=== PATIENT | male | born 1970 | race Caucasian/White ===

== ENCOUNTER 2016-08-29 15:24 | Outpatient (CLI) | payer OTHER | END 2016-08-29 15:25 | disposition home or self-care (01) | DX: G47.10 Hypersomnia, unspecified (principal); G47.8 Other sleep disorders; R06.83 Snoring ==

== ENCOUNTER 2016-09-28 21:29 | Outpatient (CLI) | payer OTHER | END 2016-09-28 21:30 | disposition home or self-care (01) | LOC: SC 21:29 | PROVIDERS: ATTEND Internal Medicine Pulmonary Disease | DX: G47.10 Hypersomnia, unspecified (principal); R06.83 Snoring | CPT/HCPCS: 95810 ==

== ENCOUNTER 2016-11-08 09:28 | Outpatient (CLI) | payer OTHER | END 2016-11-08 09:29 | disposition home or self-care (01) | LOC: SC 09:28 | PROVIDERS: ATTEND Nurse Practitioner Family | DX: G47.10 Hypersomnia, unspecified (principal); G47.23 Circadian rhythm sleep disorder, irregular sleep wake type | CPT/HCPCS: 99212; 99214 ==

== ENCOUNTER 2017-05-30 08:00 | Outpatient (CLI) | payer BC, OTHER ==
[2017-05-30 19:12] LABS: H. PYLORIS ANTIGEN STL NEGATIVE (Negative)
== END 2017-05-30 08:01 | disposition home or self-care (01) ==
LOC: LAB.WCP 08:00
PROVIDERS: ATTEND Family Medicine
DX: R10.13 Epigastric pain (principal)
CPT/HCPCS: 87338

== ENCOUNTER 2022-06-26 21:33 | Observation (INO) | payer BC, OTHER ==
[2022-06-26 21:54] LABS: BILIRUBIN,URINE NEGATIVE (NEGATIVE); GLUCOSE, URINE (UA) NEGATIVE (NEGATIVE); KETONES,URINE (UA) NEGATIVE (NEGATIVE); LEUKOCYTE ESTERASE, URINE NEGATIVE (NEGATIVE); NITRITE,URINE NEGATIVE (NEGATIVE); OCCULT BLOOD,URINE NEGATIVE (NEGATIVE); PROTEIN,URINE NEGATIVE (NEGATIVE); UROBILINOGEN,URINE 0.2 (NORMAL) E.U./dL (NORMAL)
[2022-06-26 21:55] LABS: BASOPHILS % (AUTO) 0.2 %; EOSINOPHILS % (AUTO) 0.3 %; HCT - HEMATOCRIT 44.5 % (42.0-52.0); HGB - HEMOGLOBIN 14.7 g/dL (14.0-18.0); LYMPHOCYTES # (AUTO) 1.5 10^3/uL (1.5-3.5); LYMPHOCYTES % (AUTO) 12.5 %; MEAN CORPUSCULAR HEMOGLOBIN 29.6 pg (27.0-31.0); MEAN CORPUSCULAR VOLUME 89.7 fL (80.0-94.0); MEAN PLATELET VOLUME 9.8 fL (7.4-11.4); MONOCYTES # (AUTO) 1.1 10^3/uL (0.0-1.0); MONOCYTES % (AUTO) 9.6 %; NEUTROPHILS # (AUTO) 9.1 10^3/uL (1.5-6.6); NEUTROPHILS % (AUTO) 77.1 %; PLT - PLATELET COUNT 241 10^3/uL (130-450); RED BLOOD COUNT 4.96 10^6/uL (4.70-6.10); RED CELL DISTRIBUTION WIDTH 12.6 % (12.0-15.0); WHITE BLOOD COUNT 11.8 x10^3/uL (4.8-10.8)
[2022-06-26 22:00] LABS: CLARITY,URINE CLEAR (CLEAR)
--- OUTSIDE RECORDS SUMMARY | 2022-06-26 22:02 | EXTERNAL MEDICAL SUMMARY RPT | Continuity of Care Document ---
:1970 Author Organization [facility] Address [address] [place] [address] Phone Care Team Providers Name Role Phone Unavailable Unavailable Unavailable Sonido Monahan Unavailable Unavailable Allergies and Intolerances date description facility type (no date) No Known Drug Allergies [facility] (unkn own) Encounters No information. Functional Status No information. Immunizations No information. Medications date description facility 2022-06-05 00:[address] 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[facility] region 2022-04-13 15:10 Pain in [facility] 2022-04-13 15:10 Pain in unspecified [facility] 2022-04-13 15:10 [facility] 2022-04-13 16:08 Pain in [facility] 2022-04-13 16:08 Pain in unspecified [facility] 2022-04-13 16:08 [facility] 2022-04-13 16:18 Pain in [facility] 2022-04-13 16:18 Pain in unspecified [facility] 2022-04-13 16:18 [facility] 2022-04-14 14:18 Pain in [facility] 2022-04-14 14:18 Pain in unspecified [facility] 2022-04-14 14:18 [facility] 2022-04-19 12:40 Pain in [facility] 2022-04-19 12:40 [facility] 2022-05-08 11:14 Encounter for preprocedural [facility] examination 2022-05-08 11:14 Contact with and (suspected) exposure [place] [id number] 2022-05-09 02:03 Encounter for preprocedural [facility] examination 2022-05-09 02:03 Contact with and (suspected) exposure [place] [id number] 2022-05-09 12:45 Family history of malignant neoplasm of [facility] digestive organs 2022-05-09 12:45 Family history of colonic polyps [facility] 2022-05-09 12:48 Family history of malignant neoplasm of [facility] organs 2022-05-09 12:48 Family history of colonic polyps [facility] 2022-05-09 13:02 Family history of malignant neoplasm of [facility] 2022-05-09 13:02 Family history of colonic polyps [facility] 2022-05-09 13:07 Family history of malignant neoplasm of [facility] 2022-05-09 13:07 Family history of colonic polyps [facility] 2022-05-09 13:43 Family history of malignant neoplasm of [facility] 2022-05-09 13:43 Family history of colonic polyps [facility] 2022-05-09 14:25 Family history of malignant neoplasm of [facility] 2022-05-09 14:25 Family history of colonic polyps [facility] 2022-05-09 14:44 Family history of malignant neoplasm of [facility] 2022-05-09 14:44 Family history of colonic polyps [facility] Procedures date description facility 2022-04-13 00:00 XR shoulder right, 2+ views [facility] 2022-04-13 00:00 XR cervical spine, 4 views [facility] 2022-05-09 00:[address] [facility] 2022-05-09 00:00 Esophagogastroduodenoscopy [facility] Results/Labs test date author facility value unit interpret ation Result panel 1 (unknown) (no date) (unknown) [place] (no value[facility] ([facility] unknown) Result panel 2 (unknown) (no date) (unknown) [place] (no value) ([facility] unknown) Result panel 3 (unknown) (no (unknown) (unknown) (no value) (units (unk nown) date) unknown) (unknown) (no (unknown) (unknown) 04/13/22 (units (unkno wn) date) unknown) (unknown) (no (unknown) (unknown) [address] [place] [address] (units (unknown) date) unknown) (unknown) (no (unknown) (unknown) [facility] (units (unkn own) date) Number: unknown) [id number] (unknown) (no (unknown) (unknown) [facility]ion (units (unkn own) date) Number: unknown) [id number] (unknown) (no (unknown) (unknown) Age/Sex: 52 / M (units (unknown) date) Date of Service: unknown) (unknown) (no (unknown) (unknown) [place], [place] (units ( unknown) date) [id number] unknown) (unknown) (no (unknown) (unknown) Approved by: (units (u nknown) date) Romy Jacobo M.D. unknown) on 04/13/2022 at 16:37 (unknown) (no (unknown) (unknown) Approved by: (units (u nknown) date) Romy Jacobo M.D. unknown) on 04/13/2022 at 16:39 (unknown) (no (unknown) (unknown) Bones: No (units (unkn own) date) fractures or unknown) dislocations to the C7 level. There is trace (unknown) (no (unknown) (unknown) Bones: No (units (unkn own) date) fractures or unknown) dislocations. No suspicious bony lesions. Visualized (unknown) (no (unknown) (unknown) C3-4 and C4-5. (units (unknown) date) Intervertebral unknown) disc space narrowing and osteophytosis is (unknown) (no (unknown) (unknown) COMPARISON: (units (un known) date) None. unknown) (unknown) (no (unknown) (unknown) : 1970 (units (unknown) date) Acct:[id number] unknown) (unknown) (no (unknown) (unknown) Dictated by: (units (u nknown) date) Romy Jacobo M.D. unknown) on 04/13/2022 at 16:37 (unknown) (no (unknown) (unknown) Dictated by: (units (u nknown) date) Romy Jacobo M.D. unknown) on 04/13/2022 at 16:38 (unknown) (no (unknown) (unknown) FINDINGS: (units (unkn own) date) unknown) (unknown) (no (unknown) (unknown) IMPRESSION: (units (un known) date) Degenerative unknown) change and foraminal stenosis as above. (unknown) (no (unknown) (unknown) IMPRESSION: No (units (unknown) date) acute unknown) radiographic findings. (unknown) (no (unknown) (unknown) INDICATIONS: (units (u nknown) date) NECK PAIN unknown) (unknown) (no (unknown) (unknown) INDICATIONS: (units (u nknown) date) RIGHT SHOULDER unknown) PAIN (unknown) (no (unknown) (unknown) [facility] (units (unknown) date) unknown) (unknown) (no (unknown) (unknown) Loc: RAD (units (unkno wn) date) unknown) (unknown) (no (unknown) (unknown) [id number] (units (unk nown) date) unknown) (unknown) (no (unknown) (unknown) Moderate to (units (un known) date) severe foraminal unknown) stenosis is present on the right at C4-5 and (unknown) (no (unknown) (unknown) Ordering (units (unkno wn) date) Provider: unknown) Sonido Monahan D.O. (unknown) (no (unknown) (unknown) PROCEDURE: XR (units ( unknown) date) CERVICAL SPINE 4V unknown) OR 5V (unknown) (no (unknown) (unknown) PROCEDURE: XR (units ( unknown) date) SHOULDER RT MIN unknown) 2V (unknown) (no (unknown) (unknown) Patient: (units (unkno wn) date) Michael Paulino unknown) MR#: (unknown) (no (unknown) (unknown) Procedure: XR (units ( unknown) date) cervical spine 4V unknown) or 5V (unknown) (no (unknown) (unknown) Procedure: XR (units ( unknown) date) shoulder RT min unknown) 2V (unknown) (no (unknown) (unknown) Signed (units (unkno wn) date) unknown) (unknown) (no (unknown) (unknown) Soft tissues: No (units (unknown) date) prevertebral soft unknown) tissue swelling. (unknown) (no (unknown) (unknown) Soft tissues: No (units (unknown) date) suspicious soft unknown) tissue calcifications. (unknown) (no (unknown) (unknown) TECHNIQUE: 3 (units (u nknown) date) views of the unknown) shoulder were acquired. (unknown) (no (unknown) (unknown) TECHNIQUE: 5 (units (u nknown) date) views of the unknown) cervical spine acquired. (unknown) (no (unknown) (unknown) XRay Report (units (un known) date) unknown) (unknown) (no (unknown) (unknown) and C5-6. (units (unkn own) date) Moderate stenosis unknown) is present on the left at C6-7. (unknown) (no (unknown) (unknown) appear intact. (units (unknown) date) unknown) (unknown) (no (unknown) (unknown) at C4-5 (units (unkno wn) date) unknown) (unknown) (no (unknown) (unknown) moderate (units (unkno wn) date) unknown) (unknown) (no (unknown) (unknown) present within (units (unknown) date) unknown) (unknown) (no (unknown) (unknown) retrolisthesis (units (unknown) date) at unknown) (unknown) (no (unknown) (unknown) ribs (units (unkno wn) date) unknown) (unknown) (no (unknown) (unknown) stenosis is (units (un known) date) present at C5-6. unknown) Severe foraminal stenosis is present on the left (unknown) (no (unknown) (unknown) the mid cervical (units (unknown) date) spine. unknown) Result panel 4 (unknown) (no (unknown) (unknown) (no value) (units (unk nown) date) unknown) (unknown) (no (unknown) (unknown) [id number] (units (unkn own) date) unknown) (unknown) (no (unknown) (unknown) 04/13/22 (units (unkno wn) date) unknown) (unknown) (no (unknown) (unknown) Accompanied by: (units (unknown) date) Self / Same As unknown) Patient (unknown) (no (unknown) (unknown) Age/Sex: 52 / M (units (unknown) date) Date of Service: unknown) (unknown) (no (unknown) (unknown) Allergies (units (unkn own) date) unknown) (unknown) (no (unknown) (unknown) [place], [place] (units ( unknown) date) [id number] unknown) (unknown) (no (unknown) (unknown) Assessment + (units (u nknown) date) Plan unknown) (unknown) (no (unknown) (unknown) Attending Dr: (units ( unknown) date) Sonido Monahan unknown) D.O. 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 unknown) (unknown) (no (unknown) (unknown) Documented By: (units (unknown) date) Sonido Monahan unknown) D.O. 04/13/22 1606 (unknown) (no (unknown) (unknown) Draft (units (unkno wn) date) unknown) (unknown) (no (unknown) (unknown) Facet (units (unkno wn) date) arthropathy, unknown) lumbar (unknown) (no (unknown) (unknown) Family History (units (unknown) date) (Reviewed unknown) 10/18/20 @ 16:57 by Sonido Monahan DO) (unknown) (no (unknown) (unknown) Father Colon (units (u nknown) date) cancer unknown) (unknown) (no (unknown) (unknown) Grandmother (units (un known) date) Stroke unknown) (unknown) (no (unknown) (unknown) History of (units (unk nown) date) arthroscopy of unknown) knee (unknown) (no (unknown) (unknown) Intake Clinical (units (unknown) date) Staff unknown) (unknown) (no (unknown) (unknown) Intake performed (units (unknown) date) by: Ade Infante unknown) (unknown) (no (unknown) (unknown) Intake (units (unkno wn) date) unknown) (unknown) (no (unknown) (unknown) Lateral (units (unkno wn) date) epicondylitis unknown) (unknown) (no (unknown) (unknown) Loc: PAIN (units (unkn own) date) unknown) (unknown) (no (unknown) (unknown) Medical History (units (unknown) date) (Updated 10/18/20 unknown) @ 17:01 by Sonido Monahan DO) (unknown) (no (unknown) (unknown) Medications (units (un known) date) unknown) (unknown) (no (unknown) (unknown) Mother Polyp, (units ( unknown) date) stomach unknown) (unknown) (no (unknown) (unknown) No Known Drug (units ( unknown) date) Allergies Allergy unknown) (Verified 04/13/22 16:07) (unknown) (no (unknown) (unknown) Orders (units (unkno wn) date) unknown) (unknown) (no (unknown) (unknown) Orders: (units (unkno wn) date) unknown) (unknown) (no (unknown) (unknown) PFSH (units (unkno wn) date) unknown) (unknown) (no (unknown) (unknown) Pain Visit (units (unk nown) date) unknown) (unknown) (no (unknown) (unknown) Patient: (units (unkno wn) date) Michael Paulino unknown) MR#: M (unknown) (no (unknown) (unknown) Reason For Visit (units (unknown) date) unknown) (unknown) (no (unknown) (unknown) Signed By: (units (unk nown) date) unknown) (unknown) (no (unknown) (unknown) Smoking Status: (units (unknown) date) Never smoker unknown) (unknown) (no (unknown) (unknown) Surgical History (units (unknown) date) (Reviewed unknown) 10/18/20 @ 16:57 by Sonido Monahan DO) (unknown) (no (unknown) (unknown) [facility] unknown) (unknown) (no (unknown) (unknown) This note may (units ( unknown) date) have been all or unknown) partially generated using voice recognition (unknown) (no (unknown) (unknown) Tobacco + (units (unkn own) date) Substance Use unknown) (unknown) (no (unknown) (unknown) Tobacco Status (units (unknown) date) unknown) (unknown) (no (unknown) (unknown) Visit Reasons: R (units (unknown) date) SHOULDER/ L ELBOW unknown) PAIN, RIGHT SHOULDER/L ELBOW (unknown) (no (unknown) (unknown) XR cervical (units (un known) date) spine 4V or 5V unknown) Today M25.519 - Pain in unspecified shoulder, M54.2 (unknown) (no (unknown) (unknown) XR shoulder RT (units (unknown) date) min 2V Today unknown) M25.511 - Pain in right shoulder (unknown) (no (unknown) (unknown) acetaminophen (units ( unknown) date) 325 mg tablet unknown) (Tylenol) 650 mg PO Q6H PRN 03/10/20 [History (unknown) (no (unknown) (unknown) atorvastatin 10 (units (unknown) date) mg tablet 10 mg unknown) PO BEDTIME 04/13/22 [History Confirmed 04/13/22] (unknown) (no (unknown) (unknown) have occurred. (units (unknown) date) If there are any unknown) questions, please contact the Medical Records (unknown) (no (unknown) (unknown) may occur. (units (unk nown) date) Occasional unknown) wrong-word or 'sound-alike' substitutions may have (unknown) (no (unknown) (unknown) occurred due to (units (unknown) date) the inherent unknown) limitations of voice recognition software. Please (unknown) (no (unknown) (unknown) read the note (units ( unknown) date) carefully and unknown) recognize, using context, where these substitutions (unknown) (no (unknown) (unknown) software. (units (unkn own) date) Although every unknown) effort is made to edit content, digital advertising analyst errors Result panel 5 (unknown) (no (unknown) (unknown) (no value) (units (unk nown) date) unknown) (unknown) (no (unknown) (unknown) [id number] (units (unkn own) date) unknown) (unknown) (no (unknown) (unknown) 04/13/22 (units (unkno wn) date) unknown) (unknown) (no (unknown) (unknown) Accompanied by: (units (unknown) date) Self / Same As unknown) Patient (unknown) (no (unknown) (unknown) Age/Sex: 52 / M (units (unknown) date) Date of Service: unknown) (unknown) (no (unknown) (unknown) Allergies (units (unkn own) date) unknown) (unknown) (no (unknown) (unknown) [place], [place] (units ( unknown) date) [id number] unknown) (unknown) (no (unknown) (unknown) Assessment + (units (u nknown) date) Plan unknown) (unknown) (no (unknown) (unknown) Attending Dr: (units ( unknown) date) Sonido Monahan unknown) D.O. 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 unknown) (unknown) (no (unknown) (unknown) Documented By: (units (unknown) date) Sonido Monahan unknown) D.O. 04/13/22 1606 (unknown) (no (unknown) (unknown) Draft (units (unkno wn) date) unknown) (unknown) (no (unknown) (unknown) Facet (units (unkno wn) date) arthropathy, unknown) lumbar (unknown) (no (unknown) (unknown) Family History (units (unknown) date) (Reviewed unknown) 10/18/20 @ 16:57 by Sonido Monahan DO) (unknown) (no (unknown) (unknown) Father Colon (units (u nknown) date) cancer unknown) (unknown) (no (unknown) (unknown) Grandmother (units (un known) date) Stroke unknown) (unknown) (no (unknown) (unknown) HERE FOR RIGHT (units (unknown) date) SHOULDER PAIN unknown) (unknown) (no (unknown) (unknown) History of (units (unk nown) date) arthroscopy of unknown) knee (unknown) (no (unknown) (unknown) Intake Clinical (units (unknown) date) Staff unknown) (unknown) (no (unknown) (unknown) Intake Note: (units (u nknown) date) unknown) (unknown) (no (unknown) (unknown) Intake performed (units (unknown) date) by: Ade Infante unknown) (unknown) (no (unknown) (unknown) Intake (units (unkno wn) date) unknown) (unknown) (no (unknown) (unknown) Lateral (units (unkno wn) date) epicondylitis unknown) (unknown) (no (unknown) (unknown) Loc: PAIN (units (unkn own) date) unknown) (unknown) (no (unknown) (unknown) Medical History (units (unknown) date) (Updated 10/18/20 unknown) @ 17:01 by Sonido Monahan DO) (unknown) (no (unknown) (unknown) Medications (units (un known) date) unknown) (unknown) (no (unknown) (unknown) Mother Polyp, (units ( unknown) date) stomach unknown) (unknown) (no (unknown) (unknown) No Known Drug (units ( unknown) date) Allergies Allergy unknown) (Verified 04/13/22 16:07) (unknown) (no (unknown) (unknown) Orders (units (unkno wn) date) unknown) (unknown) (no (unknown) (unknown) Orders: (units (unkno wn) date) unknown) (unknown) (no (unknown) (unknown) PFSH (units (unkno wn) date) unknown) (unknown) (no (unknown) (unknown) Pain Visit (units (unk nown) date) unknown) (unknown) (no (unknown) (unknown) Patient: (units (unkno wn) date) Michael Paulino unknown) MR#: M (unknown) (no (unknown) (unknown) Reason For Visit (units (unknown) date) unknown) (unknown) (no (unknown) (unknown) Signed By: (units (unk nown) date) unknown) (unknown) (no (unknown) (unknown) Smoking Status: (units (unknown) date) Never smoker unknown) (unknown) (no (unknown) (unknown) Surgical History (units (unknown) date) (Reviewed unknown) 10/18/20 @ 16:57 by Sonido Monahan DO) (unknown) (no (unknown) (unknown) [facility] ([facility] unknown) (unknown) (no (unknown) (unknown) This note may (units ( unknown) date) have been all or unknown) partially generated using voice recognition (unknown) (no (unknown) (unknown) Tobacco + (units (unkn own) date) Substance Use unknown) (unknown) (no (unknown) (unknown) Tobacco Status (units (unknown) date) unknown) (unknown) (no (unknown) (unknown) Visit Reasons: R (units (unknown) date) SHOULDER/ L ELBOW unknown) PAIN, RIGHT SHOULDER/L ELBOW (unknown) (no (unknown) (unknown) XR cervical (units (un known) date) spine 4V or 5V unknown) Today M25.519 - Pain in unspecified shoulder, M54.2 (unknown) (no (unknown) (unknown) XR shoulder RT (units (unknown) date) min 2V Today unknown) M25.511 - Pain in right shoulder (unknown) (no (unknown) (unknown) acetaminophen (units ( unknown) date) 325 mg tablet unknown) (Tylenol) 650 mg PO Q6H PRN 03/10/20 [History (unknown) (no (unknown) (unknown) atorvastatin 10 (units (unknown) date) mg tablet 10 mg unknown) PO BEDTIME 04/13/22 [History Confirmed 04/13/22] (unknown) (no (unknown) (unknown) have occurred. (units (unknown) date) If there are any unknown) questions, please contact the Medical Records (unknown) (no (unknown) (unknown) may occur. (units (unk nown) date) Occasional unknown) wrong-word or 'sound-alike' substitutions may have (unknown) (no (unknown) (unknown) occurred due to (units (unknown) date) the inherent unknown) limitations of voice recognition software. Please (unknown) (no (unknown) (unknown) read the note (units ( unknown) date) carefully and unknown) recognize, using context, where these substitutions (unknown) (no (unknown) (unknown) software. (units (unkn own) date) Although every unknown) effort is made to edit content, digital advertising analyst errors Result panel 6 (unknown) (no (unknown) (unknown) (no value) (units (unk nown) date) unknown) (unknown) (no (unknown) (unknown) [id number] (units (unkn own) date) unknown) (unknown) (no (unknown) (unknown) 10): 6 (units (unkno wn) date) unknown) (unknown) (no (unknown) (unknown) 04/13/22 (units (unkno wn) date) unknown) (unknown) (no (unknown) (unknown) 16:26 (units (unkno wn) date) unknown) (unknown) (no (unknown) (unknown) Accompanied by: (units (unknown) date) Self / Same As unknown) Patient (unknown) (no (unknown) (unknown) Age/Sex: 52 / M (units (unknown) date) Date of Service: unknown) (unknown) (no (unknown) (unknown) Allergies (units (unkn own) date) unknown) (unknown) (no (unknown) (unknown) [place], [place] (units ( unknown) date) [id number] unknown) (unknown) (no (unknown) (unknown) Assessment + (units (u nknown) date) Plan unknown) (unknown) (no (unknown) (unknown) Attending Dr: (units ( unknown) date) Sonido Monahan unknown) D.O. 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 unknown) (unknown) (no (unknown) (unknown) Documented By: (units (unknown) date) Sonido Monahan unknown) D.O. 04/13/22 1606 (unknown) (no (unknown) (unknown) Draft (units (unkno wn) date) unknown) (unknown) (no (unknown) (unknown) Facet (units (unkno wn) date) arthropathy, unknown) lumbar (unknown) (no (unknown) (unknown) Family History (units (unknown) date) (Reviewed unknown) 10/18/20 @ 16:57 by Sonido Monahan DO) (unknown) (no (unknown) (unknown) Father Colon (units (u nknown) date) cancer unknown) (unknown) (no (unknown) (unknown) Grandmother (units (un known) date) Stroke unknown) (unknown) (no (unknown) (unknown) HERE FOR RIGHT (units (unknown) date) SHOULDER PAIN unknown) (unknown) (no (unknown) (unknown) Height 5 ft 11 (units (unknown) date) in unknown) (unknown) (no (unknown) (unknown) History of (units (unk nown) date) arthroscopy of unknown) knee (unknown) (no (unknown) (unknown) Intake Clinical (units (unknown) date) Staff unknown) (unknown) (no (unknown) (unknown) Intake Note: (units (u nknown) date) unknown) (unknown) (no (unknown) (unknown) Intake performed (units (unknown) date) by: Ade Infante unknown) (unknown) (no (unknown) (unknown) Intake (units (unkno wn) date) unknown) (unknown) (no (unknown) (unknown) Is patient in (units ( unknown) date) pain?: Yes (HERE unknown) FOR RIGHT SHOULDER AND LEFT ELBOW) Pain scale (1 (unknown) (no (unknown) (unknown) Lateral (units (unkno wn) date) epicondylitis unknown) (unknown) (no (unknown) (unknown) Loc: PAIN (units (unkn own) date) unknown) (unknown) (no (unknown) (unknown) Medical History (units (unknown) date) (Updated 10/18/20 unknown) @ 17:01 by Sonido Monahan DO) (unknown) (no (unknown) (unknown) Medications (units (un known) date) unknown) (unknown) (no (unknown) (unknown) Mother Polyp, (units ( unknown) date) stomach unknown) (unknown) (no (unknown) (unknown) No Known Drug (units ( unknown) date) Allergies Allergy unknown) (Verified 04/13/22 16:07) (unknown) (no (unknown) (unknown) Orders (units (unkno wn) date) unknown) (unknown) (no (unknown) (unknown) Orders: (units (unkno wn) date) unknown) (unknown) (no (unknown) (unknown) Oxygen Delivery (units (unknown) date) Method room air unknown) (unknown) (no (unknown) (unknown) PFSH (units (unkno wn) date) unknown) (unknown) (no (unknown) (unknown) Pain Scale (units (unk nown) date) unknown) (unknown) (no (unknown) (unknown) Pain Visit (units (unk nown) date) unknown) (unknown) (no (unknown) (unknown) Patient: (units (unkno wn) date) Michael Paulino unknown) MR#: M (unknown) (no (unknown) (unknown) Position Sitting (units (unknown) date) unknown) (unknown) (no (unknown) (unknown) Pulse 72 (units (unkno wn) date) unknown) (unknown) (no (unknown) (unknown) Pulse Oximetry (units (unknown) date) (%) 100 unknown) (unknown) (no (unknown) (unknown) Pulse Source (units (u nknown) date) Monitor unknown) (unknown) (no (unknown) (unknown) Reason For Visit (units (unknown) date) unknown) (unknown) (no (unknown) (unknown) Signed By: (units (unk nown) date) unknown) (unknown) (no (unknown) (unknown) Smoking Status: (units (unknown) date) Never smoker unknown) (unknown) (no (unknown) (unknown) Surgical History (units (unknown) date) (Reviewed unknown) 10/18/20 @ 16:57 by Sonido Monahan DO) (unknown) (no (unknown) (unknown) Temp 98.2 F (units (un known) date) unknown) (unknown) (no (unknown) (unknown) Temp Source (units (un known) date) Temporal Artery unknown) Scan (unknown) (no (unknown) (unknown) [facility] ([facility] unknown) (unknown) (no (unknown) (unknown) This note may (units ( unknown) date) have been all or unknown) partially generated using voice recognition (unknown) (no (unknown) (unknown) Tobacco + (units (unkn own) date) Substance Use unknown) (unknown) (no (unknown) (unknown) Tobacco Status (units (unknown) date) unknown) (unknown) (no (unknown) (unknown) Visit Reasons: R (units (unknown) date) SHOULDER/ L ELBOW unknown) PAIN, RIGHT SHOULDER/L ELBOW (unknown) (no (unknown) (unknown) Vitals (units (unkno wn) date) unknown) (unknown) (no (unknown) (unknown) Weight 189 lb (units ( unknown) date) unknown) (unknown) (no (unknown) (unknown) XR cervical (units (un known) date) spine 4V or 5V unknown) Today M25.519 - Pain in unspecified shoulder, M54.2 (unknown) (no (unknown) (unknown) XR shoulder RT (units (unknown) date) min 2V Today unknown) M25.511 - Pain in right shoulder (unknown) (no (unknown) (unknown) acetaminophen (units ( unknown) date) 325 mg tablet unknown) (Tylenol) 650 mg PO Q6H PRN 03/10/20 [History (unknown) (no (unknown) (unknown) atorvastatin 10 (units (unknown) date) mg tablet 10 mg unknown) PO BEDTIME 04/13/22 [History Confirmed 04/13/22] (unknown) (no (unknown) (unknown) have occurred. (units (unknown) date) If there are any unknown) questions, please contact the Medical Records (unknown) (no (unknown) (unknown) may occur. (units (unk nown) date) Occasional unknown) wrong-word or 'sound-alike' substitutions may have (unknown) (no (unknown) (unknown) occurred due to (units (unknown) date) the inherent unknown) limitations of voice recognition software. Please (unknown) (no (unknown) (unknown) read the note (units ( unknown) date) carefully and unknown) recognize, using context, where these substitutions (unknown) (no (unknown) (unknown) software. (units (unkn own) date) Although every unknown) effort is made to edit content, digital advertising analyst errors Result panel 7 (unknown) (no (unknown) (unknown) (no value) (units (unk nown) date) unknown) (unknown) (no (unknown) (unknown) [id number] (units (unkn own) date) unknown) (unknown) (no (unknown) (unknown) 1. Diffuse disc (units (unknown) date) bulge and unknown) superimposed disc herniation with bilateral facet (unknown) (no (unknown) (unknown) 10): 6 (units (unkno wn) date) unknown) (unknown) (no (unknown) (unknown) 04/13/22 (units (unkno wn) date) unknown) (unknown) (no (unknown) (unknown) 16 study. (units (unkn own) date) unknown) (unknown) (no (unknown) (unknown) 16:26 (units (unkno wn) date) unknown) (unknown) (no (unknown) (unknown) 2. Mild (units (unkno wn) date) degenerative disc unknown) bulge at L1-2 through L3-4 levels causing mild central (unknown) (no (unknown) (unknown) 3. Stable minimal (units (unknown) date) retrolisthesis of unknown) L4 on L5. No compression fracture. No marrow (unknown) (no (unknown) (unknown) 11/15/2016, (units (unk nown) date) unknown) (unknown) (no (unknown) (unknown) 9:14. (units (unkno wn) date) unknown) (unknown) (no (unknown) (unknown) ? (units (unkno wn) date) unknown) (unknown) (no (unknown) (unknown) Accompanied by: (units (unknown) date) Self / Same As unknown) Patient (unknown) (no (unknown) (unknown) Age/Sex: 52 / M (units (unknown) date) Date of Service: unknown) (unknown) (no (unknown) (unknown) Alignment and (units ( unknown) date) Curvature: There unknown) is straightening of normal lumbar lordosis. (unknown) (no (unknown) (unknown) Allergies (units (unkn own) date) unknown) (unknown) (no (unknown) (unknown) [place], [place] (units ( unknown) date) [id number] unknown) (unknown) (no (unknown) (unknown) Approved by: (units (u nknown) date) Daniel Cooley M.D. unknown) on 10/18/2020 at 16:28 (unknown) (no (unknown) (unknown) Approved by: (units (u nknown) date) Daniel Cooley M.D. unknown) on 10/18/2020 at 16:30 05/02/2018 lumbar spine (unknown) (no (unknown) (unknown) Approved by: Edgar (units (unknown) date) Doc Chen on unknown) 05/03/2018 at 8:55 (unknown) (no (unknown) (unknown) Approved by: Romy (units (unknown) date) Doc Jacobo on unknown) 04/13/2022 at 16:37 (unknown) (no (unknown) (unknown) Approved by: Romy (units (unknown) date) Doc Jacobo on unknown) 04/13/2022 at 16:39? (unknown) (no (unknown) (unknown) Assessment + Plan (units (unknown) date) unknown) (unknown) (no (unknown) (unknown) Attending Dr: (units ( unknown) date) Sonido Monahan D.O. unknown) (unknown) (no (unknown) (unknown) BMI 26.3 (units (unkno wn) date) unknown) (unknown) (no (unknown) (unknown) BP 110/62 (units (unkn own) date) unknown) (unknown) (no (unknown) (unknown) Blood Pressure (units (unknown) date) Location Rt unknown) brachial (unknown) (no (unknown) (unknown) Bones: No acute (units (unknown) date) fracture unknown) identified. There is dextrocurvature of the (unknown) (no (unknown) (unknown) Bones: No acute (units (unknown) date) fracture. unknown) Multilevel degenerative endplate sclerosis and (unknown) (no (unknown) (unknown) Bones: No (units (unkno wn) date) fractures or unknown) dislocations. No suspicious bony lesions. Visualized ribs (unknown) (no (unknown) (unknown) Bones:? No (units (unk nown) date) fractures or unknown) dislocations to the C7 level.? There is trace (unknown) (no (unknown) (unknown) Bulging disc (units (u nknown) date) likely contacting unknown) right L5 and S1 nerve roots. (unknown) (no (unknown) (unknown) C3-4 and C4-5.? (units (unknown) date) Intervertebral unknown) disc space narrowing and osteophytosis is present (unknown) (no (unknown) (unknown) COMPARISON: None. (units (unknown) date) unknown) (unknown) (no (unknown) (unknown) COMPARISON: (units (un known) date) [facility] unknown) [facility] [place], [place], SPINE LUMB MIN 4VW, (unknown) (no (unknown) (unknown) COMPARISON:? (units (u nknown) date) None. 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 unknown) (unknown) (no (unknown) (unknown) Dextrocurvature (units (unknown) date) unknown) (unknown) (no (unknown) (unknown) Dictated by: (units (u nknown) date) Daniel Cooley M.D. unknown) on 10/18/2020 at 16:27 (unknown) (no (unknown) (unknown) Dictated by: (units (u nknown) date) Daniel Cooley M.D. unknown) on 10/18/2020 at 16:28 (unknown) (no (unknown) (unknown) Dictated by: Edgar (units (unknown) date) Doc Chen on unknown) 05/03/2018 at 8:20 (unknown) (no (unknown) (unknown) Dictated by: Romy (units (unknown) date) Doc Jacobo on unknown) 04/13/2022 at 16:37 (unknown) (no (unknown) (unknown) Dictated by: Romy (units (unknown) date) Doc Jacobo on unknown) 04/13/2022 at 16:38 ? ? 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 unknown) Moderate narrowing of the L4-L5 disc space. Mild (unknown) (no (unknown) (unknown) Diffuse facet (units ( unknown) date) unknown) (unknown) (no (unknown) (unknown) Diffuse lumbar (units (unknown) date) spondylosis and unknown) moderate L4-L5 disc degeneration, with slight (unknown) (no (unknown) (unknown) Diffuse (units (unkno wn) date) spondylitic unknown) changes. (unknown) (no (unknown) (unknown) Documented By: (units (unknown) date) Sonido Monahan D.O. unknown) 04/13/22 1606 (unknown) (no (unknown) (unknown) Draft (units (unkno wn) date) unknown) (unknown) (no (unknown) (unknown) FINDINGS: (units (unkn own) date) unknown) (unknown) (no (unknown) (unknown) FINDINGS:? (units (unk nown) date) unknown) (unknown) (no (unknown) (unknown) Facet (units (unkno wn) date) arthropathy, unknown) lumbar (unknown) (no (unknown) (unknown) Family History (units (unknown) date) (Reviewed 10/18/20 unknown) @ 16:57 by Sonido Monahan DO) (unknown) (no (unknown) (unknown) Father Colon (units (u nknown) date) cancer unknown) (unknown) (no (unknown) (unknown) Grandmother (units (un known) date) Stroke unknown) (unknown) (no (unknown) (unknown) HERE FOR RIGHT (units (unknown) date) SHOULDER PAIN unknown) (unknown) (no (unknown) (unknown) Height 5 ft 11 in (units (unknown) date) unknown) (unknown) (no (unknown) (unknown) History of (units (unk nown) date) arthroscopy of unknown) knee (unknown) (no (unknown) (unknown) IMPRESSION: No (units (unknown) date) acute radiographic unknown) findings. (unknown) (no (unknown) (unknown) IMPRESSION: (units (un known) date) unknown) (unknown) (no (unknown) (unknown) IMPRESSION:? (units (u nknown) date) Degenerative unknown) change and foraminal stenosis as above. (unknown) (no (unknown) (unknown) INDICATIONS: PAIN (units (unknown) date) unknown) (unknown) (no (unknown) (unknown) INDICATIONS: (units (u nknown) date) RIGHT SHOULDER unknown) PAIN (unknown) (no (unknown) (unknown) INDICATIONS:? (units ( unknown) date) NECK PAIN unknown) (unknown) (no (unknown) (unknown) Imaging was (units (unk nown) date) personally unknown) reviewed and findings correlate with radiology reports as (unknown) (no (unknown) (unknown) Intake Clinical (units (unknown) date) Staff unknown) (unknown) (no (unknown) (unknown) Intake Note: (units (u nknown) date) unknown) (unknown) (no (unknown) (unknown) Intake performed (units (unknown) date) by: Ade Infante unknown) (unknown) (no (unknown) (unknown) Intake (units (unkno wn) date) unknown) (unknown) (no (unknown) (unknown) Is patient in (units ( unknown) date) pain?: Yes (HERE unknown) FOR RIGHT SHOULDER AND LEFT ELBOW) Pain scale (1 (unknown) (no (unknown) (unknown) L4-5 and L5-S1 (units (unknown) date) levels causing unknown) moderate central canal stenosis and moderate to (unknown) (no (unknown) (unknown) L4-L5: Again (units (u nknown) date) noted is diffuse unknown) disc bulge and superimposed broad-based central (unknown) (no (unknown) (unknown) L4. (units (unkno wn) date) unknown) (unknown) (no (unknown) (unknown) L5-S1: Diffuse (units ( unknown) date) disc bulge and unknown) superimposed right lateral disc protrusion is seen (unknown) (no (unknown) (unknown) Lateral (units (unkno wn) date) epicondylitis unknown) (unknown) (no (unknown) (unknown) Loc: PAIN (units (unkn own) date) unknown) (unknown) (no (unknown) (unknown) Lower cervical (units (unknown) date) spondylosis also unknown) noted. (unknown) (no (unknown) (unknown) MRI results: (units (u nknown) date) unknown) (unknown) (no (unknown) (unknown) Medical History (units (unknown) date) (Updated 10/18/20 unknown) @ 17:01 by Sonido Monahan DO) (unknown) (no (unknown) (unknown) Medications (units (un known) date) unknown) (unknown) (no (unknown) (unknown) Minimal (units (unkno wn) date) unknown) (unknown) (no (unknown) (unknown) Moderate to (units (un known) date) severe central unknown) canal stenosis and bilateral neural foramina (unknown) (no (unknown) (unknown) Moderate to (units (un known) date) severe foraminal unknown) stenosis is present on the right at C4-5 and (unknown) (no (unknown) (unknown) Mother Polyp, (units ( unknown) date) stomach unknown) (unknown) (no (unknown) (unknown) No Known Drug (units ( unknown) date) Allergies Allergy unknown) (Verified 04/13/22 16:07) (unknown) (no (unknown) (unknown) Objective Data (units (unknown) date) unknown) (unknown) (no (unknown) (unknown) Objective Data: (units (unknown) date) unknown) (unknown) (no (unknown) (unknown) Oblique images: (units (unknown) date) No pars defects. unknown) (unknown) (no (unknown) (unknown) Ordering (units (unkno wn) date) Provider: unknown) Sonido Monahan D.O. (unknown) (no (unknown) (unknown) Orders (units (unkno wn) date) unknown) (unknown) (no (unknown) (unknown) Orders: (units (unkno wn) date) unknown) (unknown) (no (unknown) (unknown) Oxygen Delivery (units (unknown) date) Method room air unknown) (unknown) (no (unknown) (unknown) PFSH (units (unkno wn) date) unknown) (unknown) (no (unknown) (unknown) PROCEDURE: XR (units ( unknown) date) LUMBAR SPINE MIN unknown) 4V (unknown) (no (unknown) (unknown) PROCEDURE: XR (units ( unknown) date) SHOULDER RT MIN 2V unknown) (unknown) (no (unknown) (unknown) PROCEDURE: XR (units ( unknown) date) THORACIC SPINE 3V unknown) (unknown) (no (unknown) (unknown) PROCEDURE:? XR (units (unknown) date) CERVICAL SPINE 4V unknown) OR 5V (unknown) (no (unknown) (unknown) Pain Scale (units (unk nown) date) unknown) (unknown) (no (unknown) (unknown) Pain Visit (units (unk nown) date) unknown) (unknown) (no (unknown) (unknown) Patient: (units (unkno wn) date) Michael Paulino G unknown) MR#: M (unknown) (no (unknown) (unknown) Position Sitting (units (unknown) date) unknown) (unknown) (no (unknown) (unknown) Procedure: XR (units ( unknown) date) lumbar spine min unknown) 4V (unknown) (no (unknown) (unknown) Pulse 72 (units (unkno wn) date) unknown) (unknown) (no (unknown) (unknown) Pulse Oximetry (units (unknown) date) (%) 100 unknown) (unknown) (no (unknown) (unknown) Pulse Source (units (u nknown) date) Monitor unknown) (unknown) (no (unknown) (unknown) Reason For Visit (units (unknown) date) unknown) (unknown) (no (unknown) (unknown) Signed By: (units (unk nown) date) unknown) (unknown) (no (unknown) (unknown) Smoking Status: (units (unknown) date) Never smoker unknown) (unknown) (no (unknown) (unknown) Soft tissues: No (units (unknown) date) paravertebral unknown) stripe thickening. (unknown) (no (unknown) (unknown) Soft tissues: No (units (unknown) date) suspicious soft unknown) tissue calcifications. (unknown) (no (unknown) (unknown) Soft tissues: (units ( unknown) date) Overlying bowel unknown) gas pattern is normal. No suspicious soft tissue (unknown) (no (unknown) (unknown) Soft tissues:? No (units (unknown) date) prevertebral soft unknown) tissue swelling.? (unknown) (no (unknown) (unknown) Surgical History (units (unknown) date) (Reviewed 10/18/20 unknown) @ 16:57 by Sonido Monahan DO) (unknown) (no (unknown) (unknown) TECHNIQUE: 3 (units (u nknown) date) views of the unknown) shoulder were acquired. (unknown) (no (unknown) (unknown) TECHNIQUE: 3 (units (u nknown) date) views of the unknown) thoracic spine were acquired. (unknown) (no (unknown) (unknown) TECHNIQUE: 5 (units (u nknown) date) views of the unknown) lumbar spine were acquired, including bilateral (unknown) (no (unknown) (unknown) TECHNIQUE:? 5 (units ( unknown) date) views of the unknown) cervical spine acquired.? (unknown) (no (unknown) (unknown) Temp 98.2 F (units (un known) date) unknown) (unknown) (no (unknown) (unknown) Temp Source (units (un known) date) Temporal Artery unknown) Scan (unknown) (no (unknown) (unknown) [facility] (units (unknown) date) [facility] Management unknown) (unknown) (no (unknown) (unknown) This note may (units ( unknown) date) have been all or unknown) partially generated using voice recognition (unknown) (no (unknown) (unknown) Tobacco + (units (unkn own) date) Substance Use unknown) (unknown) (no (unknown) (unknown) Tobacco Status (units (unknown) date) unknown) (unknown) (no (unknown) (unknown) Visit Reasons: R (units (unknown) date) SHOULDER/ L ELBOW unknown) PAIN, RIGHT SHOULDER/L ELBOW (unknown) (no (unknown) (unknown) Vitals (units (unkno wn) date) unknown) (unknown) (no (unknown) (unknown) Weight 189 lb (units ( unknown) date) unknown) (unknown) (no (unknown) (unknown) XR cervical spine (units (unknown) date) 4V or 5V Today unknown) M25.519 - Pain in unspecified shoulder, M54.2 (unknown) (no (unknown) (unknown) XR shoulder RT (units (unknown) date) min 2V Today unknown) M25.511 - Pain in right shoulder (unknown) (no (unknown) (unknown) acetaminophen 325 (units (unknown) date) mg tablet unknown) (Tylenol) 650 mg PO Q6H PRN 03/10/20 [History (unknown) (no (unknown) (unknown) and C5-6.? (units (unk nown) date) Moderate stenosis unknown) is present on the left at C6-7. (unknown) (no (unknown) (unknown) appear (units (unkno wn) date) unknown) (unknown) (no (unknown) (unknown) arthropathy. (units (u nknown) date) Lower cervical unknown) spondylosis and facet arthropathy also noted. (unknown) (no (unknown) (unknown) arthrosis at (units (u nknown) date) unknown) (unknown) (no (unknown) (unknown) at C4-5 (units (unkno wn) date) unknown) (unknown) (no (unknown) (unknown) atorvastatin 10 mg (units (unknown) date) tablet 10 mg PO unknown) BEDTIME 04/13/22 [History Confirmed 04/13/22] (unknown) (no (unknown) (unknown) bilateral (units (unkn own) date) fibrosis and unknown) hypertrophy of ligamentum flavum. Mild central canal (unknown) (no (unknown) (unknown) bilateral (units (unkn own) date) neuroforaminal unknown) narrowing as described in detail above, progressed (unknown) (no (unknown) (unknown) calcifications. (units (unknown) date) unknown) (unknown) (no (unknown) (unknown) canal (units (unkno wn) date) unknown) (unknown) (no (unknown) (unknown) disc (units (unkno wn) date) unknown) (unknown) (no (unknown) (unknown) edema. (units (unkno wn) date) unknown) (unknown) (no (unknown) (unknown) have occurred. If (units (unknown) date) there are any unknown) questions, please contact the Medical Records (unknown) (no (unknown) (unknown) intact. (units (unkno wn) date) unknown) (unknown) (no (unknown) (unknown) left-sided neural (units (unknown) date) foramina narrowing unknown) is seen, also progressed since previous (unknown) (no (unknown) (unknown) listed below. (units ( unknown) date) unknown) (unknown) (no (unknown) (unknown) may occur. (units (unk nown) date) Occasional unknown) wrong-word or 'sound-alike' substitutions may have (unknown) (no (unknown) (unknown) moderate (units (unkno wn) date) unknown) (unknown) (no (unknown) (unknown) narrowing is (units (u nknown) date) unknown) (unknown) (no (unknown) (unknown) narrowing (units (unkn own) date) unknown) (unknown) (no (unknown) (unknown) noted at this (units ( unknown) date) level progressed unknown) since 2016 study. Finding is slightly worse on (unknown) (no (unknown) (unknown) noted. Moderate (units (unknown) date) to severe unknown) right-sided neuroforaminal narrowing and mild to (unknown) (no (unknown) (unknown) oblique views. (units (unknown) date) unknown) (unknown) (no (unknown) (unknown) occurred due to (units (unknown) date) the inherent unknown) limitations of voice recognition software. Please (unknown) (no (unknown) (unknown) of the remaining (units (unknown) date) lumbar disc unknown) spaces. Trace retrolisthesis of L2 on L3 and L3 on (unknown) (no (unknown) (unknown) progression (units (un known) date) unknown) (unknown) (no (unknown) (unknown) protrusion. 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 (unknown) (no (unknown) (unknown) seen. (units (unkno wn) date) unknown) (unknown) (no (unknown) (unknown) severe (units (unkno wn) date) unknown) (unknown) (no (unknown) (unknown) side with bulging (units (unknown) date) disc likely unknown) contacting bilateral L4 and L5 nerve roots. (unknown) (no (unknown) (unknown) since 1999 at (units ( unknown) date) unknown) (unknown) (no (unknown) (unknown) since 11/15/16. (units (unknown) date) unknown) (unknown) (no (unknown) (unknown) software. (units (unkn own) date) Although every unknown) effort is made to edit content, digital advertising analyst errors (unknown) (no (unknown) (unknown) spurring. (units (unkn own) date) unknown) (unknown) (no (unknown) (unknown) stenosis is (units (un known) date) present at C5-6.? unknown) Severe foraminal stenosis is present on the left (unknown) (no (unknown) (unknown) stenosis is (units (un known) date) unknown) (unknown) (no (unknown) (unknown) stenosis, not (units ( unknown) date) significantly unknown) changed from previous study. (unknown) (no (unknown) (unknown) study. (units (unkno wn) date) unknown) (unknown) (no (unknown) (unknown) the mid cervical (units (unknown) date) spine. unknown) (unknown) (no (unknown) (unknown) the right (units (unkn own) date) unknown) (unknown) (no (unknown) (unknown) thoracic spine. (units (unknown) date) Multilevel unknown) degenerative endplate sclerosis and spurring. (unknown) (no (unknown) (unknown) tissue (units (unkno wn) date) calcification unknown) projects at the base of the posterior cervical spine. (unknown) (no (unknown) (unknown) visualized (units (unk nown) date) unknown) (unknown) (no (unknown) (unknown) with (units (unkno wn) date) unknown) (unknown) (no (unknown) (unknown) within (units (unkno wn) date) unknown) Result panel 8 (unknown) (no (unknown) (unknown) (no value) (units (unk nown) date) unknown) (unknown) (no (unknown) (unknown) (1) Acute (units (unkn own) date) degenerative joint unknown) disease of shoulder region: (unknown) (no (unknown) (unknown) (2) Lateral (units (un known) date) epicondylitis: unknown) (unknown) (no (unknown) (unknown) (3) Facet (units (unkn own) date) arthropathy, lumbar: unknown) (unknown) (no (unknown) (unknown) (4) Facet (units (unkn own) date) arthropathy, unknown) thoracic: (unknown) (no (unknown) (unknown) (R/L): 09/01 (units (unknown) date) unknown) (unknown) (no (unknown) (unknown) / 2:1 (units (unkno wn) date) unknown) (unknown) (no (unknown) (unknown) / 09/01 (units (unkno wn) date) unknown) (unknown) (no (unknown) (unknown) [id number] (units (unkn own) date) unknown) (unknown) (no (unknown) (unknown) 1. Diffuse disc (units (unknown) date) bulge and unknown) superimposed disc herniation with bilateral facet (unknown) (no (unknown) (unknown) 10): 6 (units (unkno wn) date) unknown) (unknown) (no (unknown) (unknown) 04/13/22 (units (unkno wn) date) unknown) (unknown) (no (unknown) (unknown) 16 study. (units (unkn own) date) unknown) (unknown) (no (unknown) (unknown) 16:26 (units (unkno wn) date) unknown) (unknown) (no (unknown) (unknown) 2. Mild degenerative (unit s (unknown) date) disc bulge at L1-2 unknown) through L3-4 levels causing mild central (unknown) (no (unknown) (unknown) 3. Stable minimal (units (unknown) date) retrolisthesis of L4 unknown) on L5. No compression fracture. No marrow (unknown) (no (unknown) (unknown) 11/11/2019 (units (unkn own) date) unknown) (unknown) (no (unknown) (unknown) 11/15/2016, (units (unk nown) date) unknown) (unknown) (no (unknown) (unknown) 9:14. (units (unkno wn) date) unknown) (unknown) (no (unknown) (unknown) ? (units (unkno wn) date) unknown) (unknown) (no (unknown) (unknown) Abduction (R/L): (units (unknown) date) 09/01 ER(R/L): unknown) 09/01 IR (R/L): 09/01 (unknown) (no (unknown) (unknown) Accompanied by: (units (unknown) date) Self / Same As unknown) Patient (unknown) (no (unknown) (unknown) Active FE (R/L): (units (unknown) date) 160 / 160 Passive FE unknown) (R/L): 160 / 160 (unknown) (no (unknown) (unknown) 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 (unknown) (no (unknown) (unknown) Age/Sex: 52 / M (units (unknown) date) Date of Service: unknown) (unknown) (no (unknown) (unknown) Alignment and (units ( unknown) date) Curvature: There is unknown) straightening of normal lumbar lordosis. (unknown) (no (unknown) (unknown) All other systems (units (unknown) date) reviewed and are unknown) unremarkable except as noted in HPI. (unknown) (no (unknown) (unknown) Allergies (units (unkn own) date) unknown) (unknown) (no (unknown) (unknown) MINDY [place] [id number] (unit s (unknown) date) unknown) (unknown) (no (unknown) (unknown) Approved by: Daniel (units (unknown) date) Andrew Cooley M.D. on unknown) 10/18/2020 at 16:28 (unknown) (no (unknown) (unknown) Approved by: Daniel (units (unknown) date) Andrew Cooley M.D. on unknown) 10/18/2020 at 16:30 05/02/2018 lumbar spine (unknown) (no (unknown) (unknown) Approved by: Edgar (units (unknown) date) Doc Chen on unknown) 05/03/2018 at 8:55 (unknown) (no (unknown) (unknown) Approved by: Romy (units (unknown) date) Doc Jacobo on unknown) 04/13/2022 at 16:37 (unknown) (no (unknown) (unknown) Approved by: Romy (units (unknown) date) Doc Jacobo on unknown) 04/13/2022 at 16:39? (unknown) (no (unknown) (unknown) As oral consent, we (units (unknown) date) did review the risks unknown) of the above stated procedure including (unknown) (no (unknown) (unknown) Assessment + Plan (units (unknown) date) unknown) (unknown) (no (unknown) (unknown) Attending Dr: (units ( unknown) date) Sonido Monahan D.O. unknown) (unknown) (no (unknown) (unknown) November. He reports (units (unknown) date) that he was moving unknown) some old carpet and rolled up and placed (unknown) (no (unknown) (unknown) BMI 26.3 (units (unkno wn) date) unknown) (unknown) (no (unknown) (unknown) BP 110/62 (units (unkn own) date) unknown) (unknown) (no (unknown) (unknown) Biceps (R/L):09/01 / (units (unknown) date) 09/01 Triceps unknown) (R/L):09/01 / 09/01 Intrinsics (unknown) (no (unknown) (unknown) Blood Pressure (units (unknown) date) Location Rt brachial unknown) (unknown) (no (unknown) (unknown) Bones: No acute (units (unknown) date) fracture identified. unknown) There is dextrocurvature of the (unknown) (no (unknown) (unknown) Bones: No acute (units (unknown) date) fracture. Multilevel unknown) degenerative endplate sclerosis and (unknown) (no (unknown) (unknown) Bones: No fractures (units (unknown) date) or dislocations. No unknown) suspicious bony lesions. Visualized ribs (unknown) (no (unknown) (unknown) Bones:? No (units (unk nown) date) fractures or unknown) dislocations to the C7 level.? There is trace (unknown) (no (unknown) (unknown) Bulging disc likely (unit s (unknown) date) contacting right L5 unknown) and S1 nerve roots. (unknown) (no (unknown) (unknown) C-Spine Tenderness: (unit s (unknown) date) non-tender unknown) Spurling's Test (R/L): neg / neg (unknown) (no (unknown) (unknown) C-spine Flexion: 45 (unit s (unknown) date) C-spine Extension: unknown) 45 (unknown) (no (unknown) (unknown) C-spine Right (units ( unknown) date) Rotation: 70 C-spine unknown) Left Rotation: 70 (unknown) (no (unknown) (unknown) C3-4 and C4-5.? (units (unknown) date) Intervertebral disc unknown) space narrowing and osteophytosis is present (unknown) (no (unknown) (unknown) COMPARISON: None. (units (unknown) date) unknown) (unknown) (no (unknown) (unknown) COMPARISON: [facility] (units (unknown) date) [facility] unknown) [place], [place], SPINE LUMB MIN 4VW, (unknown) (no (unknown) (unknown) COMPARISON:? None. 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 unknown) (unknown) (no (unknown) (unknown) Chronic soft (units (u nknown) date) unknown) (unknown) (no (unknown) (unknown) Confirmed 04/13/22] (unit s (unknown) date) unknown) (unknown) (no (unknown) (unknown) Cross Arm (R/L): (units (unknown) date) neg / neg Neer unknown) Impingement Test (R/L): (unknown) (no (unknown) (unknown) : 1970 (units (unknown) date) Acct:[id number] unknown) (unknown) (no (unknown) (unknown) DTR UE (R/L): (units ( unknown) date) Biceps: (2+/2+); unknown) Triceps: (2+/2+) (unknown) (no (unknown) (unknown) Denies recent (units ( unknown) date) trauma, fever or unknown) weight loss of unknown origin, immunocompromise (unknown) (no (unknown) (unknown) Depo-Medrol (units (un known) date) (methylprednisolone unknown) acetate) 80 mg intra-articular ONCE 1 mL 0RF NS (unknown) (no (unknown) (unknown) Depo-Medrol 80mg (units (unknown) date) Today M19.019 - unknown) Primary osteoarthritis, unspecified shoulder (unknown) (no (unknown) (unknown) Dept at (units (unkno wn) date) . unknown) (unknown) (no (unknown) (unknown) Details: (units (unkno wn) date) unknown) (unknown) (no (unknown) (unknown) Dextrocurvature (units (unknown) date) unknown) (unknown) (no (unknown) (unknown) Dictated by: Daniel (units (unknown) date) Andrew Cooley M.D. on unknown) 10/18/2020 at 16:27 (unknown) (no (unknown) (unknown) Dictated by: Daniel (units (unknown) date) Andrew Cooley M.D. on unknown) 10/18/2020 at 16:28 (unknown) (no (unknown) (unknown) Dictated by: Edgar (units (unknown) date) Doc Chen on unknown) 05/03/2018 at 8:20 (unknown) (no (unknown) (unknown) Dictated by: Romy (units (unknown) date) Doc Jacobo on unknown) 04/13/2022 at 16:37 (unknown) (no (unknown) (unknown) Dictated by: Romy (units (unknown) date) Doc Jacobo on unknown) 04/13/2022 at 16:38 ? ? 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 unknown) Moderate narrowing of the L4-L5 disc space. Mild (unknown) (no (unknown) (unknown) Diffuse facet (units ( unknown) date) unknown) (unknown) (no (unknown) (unknown) Diffuse lumbar (units (unknown) date) spondylosis and unknown) moderate L4-L5 disc degeneration, with slight (unknown) (no (unknown) (unknown) Diffuse spondylitic (unit s (unknown) date) changes. unknown) (unknown) (no (unknown) (unknown) Documented By: (units (unknown) date) Sonido Monahan D.O. unknown) 04/13/22 1606 (unknown) (no (unknown) (unknown) Draft (units (unkno wn) date) unknown) (unknown) (no (unknown) (unknown) Endorses thoracic (units (unknown) date) HNP, lumbar sacral unknown) HNP, lumbosacral spondylosis, (unknown) (no (unknown) (unknown) Exam Narrative (units (unknown) date) unknown) (unknown) (no (unknown) (unknown) Exam Narrative: (units (unknown) date) unknown) (unknown) (no (unknown) (unknown) Exam (units (unkno wn) date) unknown) (unknown) (no (unknown) (unknown) External Rotation (units (unknown) date) at side (R/L): 45 / unknown) 45 Internal Rotation (R/L): (unknown) (no (unknown) (unknown) FINDINGS: (units (unkn own) date) unknown) (unknown) (no (unknown) (unknown) FINDINGS:? (units (unk nown) date) unknown) (unknown) (no (unknown) (unknown) Facet arthropathy, (units (unknown) date) lumbar unknown) (unknown) (no (unknown) (unknown) Family History (units (unknown) date) (Reviewed 04/13/22 @ unknown) 17:08 by Sonido Monahan DO) (unknown) (no (unknown) (unknown) Father Colon cancer (unit s (unknown) date) unknown) (unknown) (no (unknown) (unknown) Gait: normal (units (u nknown) date) Coordination: normal unknown) (unknown) (no (unknown) (unknown) General Appearance: (unit s (unknown) date) Well-nourished, well unknown) developed in no acute distress (unknown) (no (unknown) (unknown) Grandmother (units (un known) date) Stroke unknown) (unknown) (no (unknown) (unknown) HERE FOR RIGHT (units (unknown) date) SHOULDER PAIN unknown) (unknown) (no (unknown) (unknown) HPI (units (unkno wn) date) unknown) (unknown) (no (unknown) (unknown) Jack Test (R/L): (unit s (unknown) date) neg / neg unknown) Scapulothoracic motion (R/L): 2:1 (unknown) (no (unknown) (unknown) He reports no other (unit s (unknown) date) new traumas or unknown) illnesses at this time and reports feeling (unknown) (no (unknown) (unknown) Height 5 ft 11 in (units (unknown) date) unknown) (unknown) (no (unknown) (unknown) History of (units (unk nown) date) arthroscopy of knee unknown) (unknown) (no (unknown) (unknown) IMPRESSION: No (units (unknown) date) acute radiographic unknown) findings. (unknown) (no (unknown) (unknown) IMPRESSION: (units (un known) date) unknown) (unknown) (no (unknown) (unknown) IMPRESSION:? (units (u nknown) date) Degenerative change unknown) and foraminal stenosis as above. (unknown) (no (unknown) (unknown) INDICATIONS: PAIN (units (unknown) date) unknown) (unknown) (no (unknown) (unknown) INDICATIONS: RIGHT (units (unknown) date) SHOULDER PAIN unknown) (unknown) (no (unknown) (unknown) INDICATIONS:? NECK (units (unknown) date) PAIN unknown) (unknown) (no (unknown) (unknown) Imaging was (units (unk nown) date) personally reviewed unknown) and findings correlate with radiology reports as (unknown) (no (unknown) (unknown) Inspection/Palpatio (unit s (unknown) date) n UE (R/L): unknown) Non-tender bilaterally. (unknown) (no (unknown) (unknown) Intake Clinical (units (unknown) date) Staff unknown) (unknown) (no (unknown) (unknown) Intake Note: (units (u nknown) date) unknown) (unknown) (no (unknown) (unknown) Intake performed (units (unknown) date) by: Ade Infante unknown) (unknown) (no (unknown) (unknown) Intake (units (unkno wn) date) unknown) (unknown) (no (unknown) (unknown) Interventions/Proc. (unit s (unknown) date) unknown) (unknown) (no (unknown) (unknown) Interventions: (units (unknown) date) unknown) (unknown) (no (unknown) (unknown) Is patient in (units ( unknown) date) pain?: Yes (HERE FOR unknown) RIGHT SHOULDER AND LEFT ELBOW) Pain scale (1 (unknown) (no (unknown) (unknown) Michael presents (units (unknown) date) today for further unknown) evaluation and treatment of right shoulder (unknown) (no (unknown) (unknown) L4-5 and L5-S1 (units (unknown) date) levels causing unknown) moderate central canal stenosis and moderate to (unknown) (no (unknown) (unknown) L4-L5: Again noted (units (unknown) date) is diffuse disc unknown) bulge and superimposed broad-based central (unknown) (no (unknown) (unknown) L4. (units (unkno wn) date) unknown) (unknown) (no (unknown) (unknown) L5-S1: Diffuse disc (units (unknown) date) bulge and unknown) superimposed right lateral disc protrusion is seen (unknown) (no (unknown) (unknown) Lateral (units (unkno wn) date) epicondylitis unknown) (unknown) (no (unknown) (unknown) Laterality: right (units (unknown) date) Qualified Code(s): unknown) M77.11 - Lateral epicondylitis, (unknown) (no (unknown) (unknown) Loc: PAIN (units (unkn own) date) unknown) (unknown) (no (unknown) (unknown) Lower cervical (units (unknown) date) spondylosis also unknown) noted. (unknown) (no (unknown) (unknown) Lymph UE (R/L): No (units (unknown) date) axillary unknown) lymphadenopathy (unknown) (no (unknown) (unknown) M19.019 - Primary (units (unknown) date) osteoarthritis, unknown) unspecified shoulder (unknown) (no (unknown) (unknown) MRI results: (units (u nknown) date) unknown) (unknown) (no (unknown) (unknown) MSK: System (units (un known) date) reviewed and no unknown) additional complaints, except as documented. (unknown) (no (unknown) (unknown) Medical History (units (unknown) date) (Reviewed 04/13/22 @ unknown) 17:08 by Sonido Monahan DO) (unknown) (no (unknown) (unknown) Medications (units (un known) date) unknown) (unknown) (no (unknown) (unknown) Medications: (units (u nknown) date) unknown) (unknown) (no (unknown) (unknown) Minimal (units (unkno wn) date) unknown) (unknown) (no (unknown) (unknown) Moderate to severe (units (unknown) date) central canal unknown) stenosis and bilateral neural foramina (unknown) (no (unknown) (unknown) Moderate to severe (units (unknown) date) foraminal stenosis unknown) is present on the right at C4-5 and (unknown) (no (unknown) (unknown) Mother Polyp, (units ( unknown) date) stomach unknown) (unknown) (no (unknown) (unknown) Neuro: System (units ( unknown) date) reviewed and no unknown) additional complaints, except as documented. (unknown) (no (unknown) (unknown) New (units (unkno wn) date) unknown) (unknown) (no (unknown) (unknown) No Known Drug (units ( unknown) date) Allergies Allergy unknown) (Verified 04/13/22 16:07) (unknown) (no (unknown) (unknown) No fever, chills, (units (unknown) date) signs of infection, unknown) weakness after right L4, L5, S1 MB RFA (unknown) (no (unknown) (unknown) Greeley's Test (units (unknown) date) (R/L): neg / neg unknown) [place] Test (R/L): neg / neg (unknown) (no (unknown) (unknown) Objective Data (units (unknown) date) unknown) (unknown) (no (unknown) (unknown) Objective Data: (units (unknown) date) unknown) (unknown) (no (unknown) (unknown) Oblique images: No (units (unknown) date) pars defects. unknown) (unknown) (no (unknown) (unknown) Ordering Provider: (units (unknown) date) Sonido Monahan D.O. unknown) (unknown) (no (unknown) (unknown) Orders (units (unkno wn) date) unknown) (unknown) (no (unknown) (unknown) Orders: (units (unkno wn) date) unknown) (unknown) (no (unknown) (unknown) Orientation: (units (u nknown) date) Oriented to person, unknown) place and time. Mood / Affect: Calm (unknown) (no (unknown) (unknown) Oxygen Delivery (units (unknown) date) Method room air unknown) (unknown) (no (unknown) (unknown) PFSH (units (unkno wn) date) unknown) (unknown) (no (unknown) (unknown) PROCEDURE: XR (units ( unknown) date) LUMBAR SPINE MIN 4V unknown) (unknown) (no (unknown) (unknown) PROCEDURE: XR (units ( unknown) date) SHOULDER RT MIN 2V unknown) (unknown) (no (unknown) (unknown) PROCEDURE: XR (units ( unknown) date) THORACIC SPINE 3V unknown) (unknown) (no (unknown) (unknown) PROCEDURE:? XR (units (unknown) date) CERVICAL SPINE 4V OR unknown) 5V (unknown) (no (unknown) (unknown) Pain Scale (units (unk nown) date) unknown) (unknown) (no (unknown) (unknown) Pain Visit (units (unk nown) date) unknown) (unknown) (no (unknown) (unknown) Patient: (units (unkno wn) date) Michael Paulino unknown) MR#: [id number] (unknown) (no (unknown) (unknown) Position Sitting (units (unknown) date) unknown) (unknown) (no (unknown) (unknown) Procedure: XR (units ( unknown) date) lumbar spine min 4V unknown) (unknown) (no (unknown) (unknown) Pulse 72 (units (unkno wn) date) unknown) (unknown) (no (unknown) (unknown) Pulse Oximetry (%) (units (unknown) date) 100 unknown) (unknown) (no (unknown) (unknown) Pulse Source (units (u nknown) date) Monitor unknown) (unknown) (no (unknown) (unknown) Qualifiers: (units (un known) date) unknown) (unknown) (no (unknown) (unknown) ROS Narrative (units ( unknown) date) unknown) (unknown) (no (unknown) (unknown) ROS Narrative: (units (unknown) date) unknown) (unknown) (no (unknown) (unknown) ROS (units (unkno wn) date) unknown) (unknown) (no (unknown) (unknown) Reason For Visit (units (unknown) date) unknown) (unknown) (no (unknown) (unknown) Sensation: (units (unk nown) date) Subjective normal unknown) median / ulnar / radial / axillary sensation (unknown) (no (unknown) (unknown) Shoulder Exam (units ( unknown) date) (Bilateral) unknown) (unknown) (no (unknown) (unknown) Signed By: (units (unk nown) date) unknown) (unknown) (no (unknown) (unknown) Smoking Status: (units (unknown) date) Never smoker unknown) (unknown) (no (unknown) (unknown) Soft tissues: No (units (unknown) date) paravertebral stripe unknown) thickening. (unknown) (no (unknown) (unknown) Soft tissues: No (units (unknown) date) suspicious soft unknown) tissue calcifications. (unknown) (no (unknown) (unknown) Soft tissues: (units ( unknown) date) Overlying bowel gas unknown) pattern is normal. No suspicious soft tissue (unknown) (no (unknown) (unknown) Soft tissues:? No (units (unknown) date) prevertebral soft unknown) tissue swelling.? (unknown) (no (unknown) (unknown) Speeds (R/L): neg / (unit s (unknown) date) neg Apprehension unknown) (R/L): neg /neg (unknown) (no (unknown) (unknown) Status: Acute (units ( unknown) date) unknown) (unknown) (no (unknown) (unknown) Status: Chronic (units (unknown) date) unknown) (unknown) (no (unknown) (unknown) Surgical History (units (unknown) date) (Reviewed 04/13/22 @ unknown) 17:08 by Sonido Monahan DO) (unknown) (no (unknown) (unknown) TECHNIQUE: 3 views (units (unknown) date) of the shoulder were unknown) acquired. (unknown) (no (unknown) (unknown) TECHNIQUE: 3 views (units (unknown) date) of the thoracic unknown) spine were acquired. (unknown) (no (unknown) (unknown) TECHNIQUE: 5 views (units (unknown) date) of the lumbar spine unknown) were acquired, including bilateral (unknown) (no (unknown) (unknown) TECHNIQUE:? 5 views (unit s (unknown) date) of the cervical unknown) spine acquired.? (unknown) (no (unknown) (unknown) Temp 98.2 F (units (un known) date) unknown) (unknown) (no (unknown) (unknown) Temp Source (units (un known) date) Temporal Artery Scan unknown) (unknown) (no (unknown) (unknown) [facility] (unit s (unknown) date) Management unknown) (unknown) (no (unknown) (unknown) The shoulder was (units (unknown) date) prepped in usual unknown) sterile fashion with the use of chlorhexidine (unknown) (no (unknown) (unknown) They referred by did (unit s (unknown) date) a post injection unknown) instructions sheet as well as pain like to (unknown) (no (unknown) (unknown) This note may have (units (unknown) date) been all or unknown) partially generated using voice recognition (unknown) (no (unknown) (unknown) Tobacco + Substance (unit s (unknown) date) Use unknown) (unknown) (no (unknown) (unknown) Tobacco Status (units (unknown) date) unknown) (unknown) (no (unknown) (unknown) UE Skin (R/L): No (units (unknown) date) rashes or lesions. unknown) (unknown) (no (unknown) (unknown) Vasculature: 2+ (units (unknown) date) radial pulse unknown) bilaterally. (unknown) (no (unknown) (unknown) Visit Reasons: R (units (unknown) date) SHOULDER/ L ELBOW unknown) PAIN, RIGHT SHOULDER/L ELBOW (unknown) (no (unknown) (unknown) Vitals (units (unkno wn) date) unknown) (unknown) (no (unknown) (unknown) Weight 189 lb (units ( unknown) date) unknown) (unknown) (no (unknown) (unknown) XR cervical spine (units (unknown) date) 4V or 5V Today unknown) M25.519 - Pain in unspecified shoulder, M54.2 (unknown) (no (unknown) (unknown) XR shoulder RT min (units (unknown) date) 2V Today M25.511 - unknown) Pain in right shoulder (unknown) (no (unknown) (unknown) acetaminophen 325 (units (unknown) date) mg tablet (Tylenol) unknown) 650 mg PO Q6H PRN 03/10/20 [History (unknown) (no (unknown) (unknown) advancing was (units ( unknown) date) atraumatically unknown) introduced and advanced into the AC joint with (unknown) (no (unknown) (unknown) and C5-6.? Moderate (unit s (unknown) date) stenosis is present unknown) on the left at C6-7. (unknown) (no (unknown) (unknown) appear (units (unkno wn) date) unknown) (unknown) (no (unknown) (unknown) arthropathy. Lower (units (unknown) date) cervical spondylosis unknown) and facet arthropathy also noted. 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 Mild central canal (unknown) (no (unknown) (unknown) bilateral (units (unkn own) date) neuroforaminal unknown) narrowing as described in detail above, progressed (unknown) (no (unknown) (unknown) bilaterally (units (un known) date) unknown) (unknown) (no (unknown) (unknown) calcifications. (units (unknown) date) unknown) (unknown) (no (unknown) (unknown) canal (units (unkno wn) date) unknown) (unknown) (no (unknown) (unknown) complications (units ( unknown) date) noting significant unknown) relief prior to dismissal in excellent (unknown) (no (unknown) (unknown) condition under (units (unknown) date) their own power. unknown) (unknown) (no (unknown) (unknown) direct (units (unkno wn) date) visualization unknown) following negative aspiration, 3cc including 1 cc or 80 mg (unknown) (no (unknown) (unknown) disc (units (unkno wn) date) unknown) (unknown) (no (unknown) (unknown) edema. (units (unkno wn) date) unknown) (unknown) (no (unknown) (unknown) have occurred. If (units (unknown) date) there are any unknown) questions, please contact the Medical Records (unknown) (no (unknown) (unknown) incident. Patient (units (unknown) date) tolerated the unknown) procedure well without signs simply (unknown) (no (unknown) (unknown) inflammatories and (units (unknown) date) Tylenol. unknown) (unknown) (no (unknown) (unknown) intact. (units (unkno wn) date) unknown) (unknown) (no (unknown) (unknown) intravenous drug (units (unknown) date) use, sustained unknown) glucocorticoid use, osteoporosis, or a focal (unknown) (no (unknown) (unknown) left-sided neural (units (unknown) date) foramina narrowing unknown) is seen, also progressed since previous (unknown) (no (unknown) (unknown) listed below. (units ( unknown) date) unknown) (unknown) (no (unknown) (unknown) may occur. (units (unk nown) date) Occasional unknown) wrong-word or 'sound-alike' substitutions may have (unknown) (no (unknown) (unknown) moderate (units (unkno wn) date) unknown) (unknown) (no (unknown) (unknown) monitor the relief (units (unknown) date) prior to our unknown) follow-up visit. (unknown) (no (unknown) (unknown) narrowing is (units (u nknown) date) unknown) (unknown) (no (unknown) (unknown) narrowing (units (unkn own) date) unknown) (unknown) (no (unknown) (unknown) neg / neg (units (unkn own) date) unknown) (unknown) (no (unknown) (unknown) neurological (units (u nknown) date) deficit with unknown) progressive or disabling symptoms. (unknown) (no (unknown) (unknown) no upper extremity (units (unknown) date) paresthesias or unknown) weakness associated with this. He reports (unknown) (no (unknown) (unknown) not limited to (units (unknown) date) bleeding, infection, unknown) allergic reaction, nerve injury, stroke, (unknown) (no (unknown) (unknown) noted at this level (unit s (unknown) date) progressed since unknown) 2016 study. Finding is slightly worse on (unknown) (no (unknown) (unknown) noted. Moderate to (units (unknown) date) severe right-sided unknown) neuroforaminal narrowing and mild to (unknown) (no (unknown) (unknown) oblique views. (units (unknown) date) unknown) (unknown) (no (unknown) (unknown) obtained today (units (unknown) date) without guarantees unknown) or assurances of complete relief applied. (unknown) (no (unknown) (unknown) occurred due to the (unit s (unknown) date) inherent limitations unknown) of voice recognition software. Please (unknown) (no (unknown) (unknown) of Depo-Medrol (units (unknown) date) combined with 2cc of unknown) 0.5% ropivacaine was infiltrated without (unknown) (no (unknown) (unknown) of the remaining (units (unknown) date) lumbar disc spaces. unknown) Trace retrolisthesis of L2 on L3 and L3 on (unknown) (no (unknown) (unknown) on top of his right (unit s (unknown) date) shoulder. He reports unknown) he developed the right shoulder pain (unknown) (no (unknown) (unknown) or (units (unkno wn) date) immunosuppressive unknown) therapy, previous or current cancer diagnosis, history of (unknown) (no (unknown) (unknown) out under (units (unkn own) date) ultrasound guidance. unknown) The right AC joint was palpated. A 25 gauge was (unknown) (no (unknown) (unknown) pain. He reports (units (unknown) date) right shoulder pain unknown) began after he moved into his new house in (unknown) (no (unknown) (unknown) paralysis and (unit s (unknown) date) and the patient unknown) elected to proceed. Informed consent was (unknown) (no (unknown) (unknown) progression (units (un known) date) unknown) (unknown) (no (unknown) (unknown) protrusion. 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 (units (unkno wn) date) Visualization of the unknown) joint space as well as the injection was carried (unknown) (no (unknown) (unknown) seen. (units (unkno wn) date) unknown) (unknown) (no (unknown) (unknown) severe (units (unkno wn) date) unknown) (unknown) (no (unknown) (unknown) side with bulging (units (unknown) date) disc likely unknown) contacting bilateral L4 and L5 nerve roots. (unknown) (no (unknown) (unknown) since 1999 at (units ( unknown) date) unknown) (unknown) (no (unknown) (unknown) since 11/15/16. (units (unknown) date) unknown) (unknown) (no (unknown) (unknown) software. 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 (units (unkn own) date) unknown) (unknown) (no (unknown) (unknown) stenosis is present (unit s (unknown) date) at C5-6.? Severe unknown) foraminal stenosis is present on the left (unknown) (no (unknown) (unknown) stenosis is (units (un known) date) unknown) (unknown) (no (unknown) (unknown) stenosis, not (units ( unknown) date) significantly unknown) changed from previous study. (unknown) (no (unknown) (unknown) study. (units (unkno wn) date) unknown) (unknown) (no (unknown) (unknown) that is worse with (units (unknown) date) forward flexion as unknown) well as cross-arm adduction. He reports (unknown) (no (unknown) (unknown) the mid cervical (units (unknown) date) spine. unknown) (unknown) (no (unknown) (unknown) the right (units (unkn own) date) unknown) (unknown) (no (unknown) (unknown) the symptoms (units (u nknown) date) persist despite ice unknown) massage as well as [id number] anti (unknown) (no (unknown) (unknown) this time he has (units (unknown) date) been fully unknown) vaccinated (unknown) (no (unknown) (unknown) thoracic spine. (units (unknown) date) Multilevel unknown) degenerative endplate sclerosis and spurring. (unknown) (no (unknown) (unknown) tissue (units (unkno wn) date) calcification unknown) projects at the base of the posterior cervical spine. (unknown) (no (unknown) (unknown) visualized (units (unk nown) date) unknown) (unknown) (no (unknown) (unknown) well maintain the (units (unknown) date) Covid19 social unknown) restrictions without cough fever fatigue at (unknown) (no (unknown) (unknown) with (units (unkno wn) date) unknown) (unknown) (no (unknown) (unknown) within (units (unkno wn) date) unknown) Result panel 9 (unknown) (no (unknown) (unknown) (no value) (units (unk nown) date) unknown) (unknown) (no (unknown) (unknown) (1) Acute (units (unkn own) date) degenerative joint unknown) disease of shoulder region: (unknown) (no (unknown) (unknown) (2) Lateral (units (un known) date) epicondylitis: unknown) (unknown) (no (unknown) (unknown) (3) Facet (units (unkn own) date) arthropathy, lumbar: unknown) (unknown) (no (unknown) (unknown) (4) Facet (units (unkn own) date) arthropathy, unknown) thoracic: (unknown) (no (unknown) (unknown) (R/L): 09/01 / 09/01 (units (unknown) date) unknown) (unknown) (no (unknown) (unknown) / 2:1 (units (unkno wn) date) unknown) (unknown) (no (unknown) (unknown) / 09/01 (units (unkno wn) date) unknown) (unknown) (no (unknown) (unknown) [id number] (units (unkn own) date) unknown) (unknown) (no (unknown) (unknown) 1. Diffuse disc (units (unknown) date) bulge and unknown) superimposed disc herniation with bilateral facet (unknown) (no (unknown) (unknown) 10): 6 (units (unkno wn) date) unknown) (unknown) (no (unknown) (unknown) 04/13/22 1713 (units ( unknown) date) unknown) (unknown) (no (unknown) (unknown) 04/13/22 (units (unkno wn) date) unknown) (unknown) (no (unknown) (unknown) 16 study. (units (unkn own) date) unknown) (unknown) (no (unknown) (unknown) 16:26 (units (unkno wn) date) unknown) (unknown) (no (unknown) (unknown) 2. Mild degenerative (unit s (unknown) date) disc bulge at L1-2 unknown) through L3-4 levels causing mild central (unknown) (no (unknown) (unknown) 3. Stable minimal (units (unknown) date) retrolisthesis of L4 unknown) on L5. No compression fracture. No marrow (unknown) (no (unknown) (unknown) 11/11/2019 (units (unkn own) date) unknown) (unknown) (no (unknown) (unknown) 11/15/2016, (units (unk nown) date) unknown) (unknown) (no (unknown) (unknown) 80 mg (units (unkno wn) date) intra-articular unknown) Right AC joint [id number] 06/29/23 [id number] (unknown) (no (unknown) (unknown) 9:14. (units (unkno wn) date) unknown) (unknown) (no (unknown) (unknown) ? (units (unkno wn) date) unknown) (unknown) (no (unknown) (unknown) AC joint on today's (unit s (unknown) date) examination. We did unknown) review the above-stated procedure at (unknown) (no (unknown) (unknown) AMNEAL/PREMIER (units (unknown) date) unknown) (unknown) (no (unknown) (unknown) Abduction (R/L): (units (unknown) date) 09/01 / 09/01 ER(R/L): unknown) 09/01 / 09/01 IR (R/L): 09/01 (unknown) (no (unknown) (unknown) Accompanied by: (units (unknown) date) Self / Same As unknown) Patient (unknown) (no (unknown) (unknown) Active FE (R/L): (units (unknown) date) 160 / 160 Passive FE unknown) (R/L): 160 / 160 (unknown) (no (unknown) (unknown) 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 (unknown) (no (unknown) (unknown) Administered by: (units (unknown) date) Sonido Monahan DO on unknown) 04/13/22 17:09 (unknown) (no (unknown) (unknown) After lengthy (units (u nknown) date) discussion we did unknown) elect to proceed with an ultrasound-guided right (unknown) (no (unknown) (unknown) Age/Sex: 52 / M (units (unknown) date) Date of Service: unknown) (unknown) (no (unknown) (unknown) Alignment and (units ( unknown) date) Curvature: There is unknown) straightening of normal lumbar lordosis. (unknown) (no (unknown) (unknown) All of his (units (unk nown) date) questions were unknown) answered to the best my ability is in agreement with (unknown) (no (unknown) (unknown) All other systems (units (unknown) date) reviewed and are unknown) unremarkable except as noted in HPI. (unknown) (no (unknown) (unknown) Allergies (units (unkn own) date) unknown) (unknown) (no (unknown) (unknown) [place] [address] (unit s (unknown) date) unknown) (unknown) (no (unknown) (unknown) Approved by: Daniel (units (unknown) date) Andrew Cooley M.D. on unknown) 10/18/2020 at 16:28 (unknown) (no (unknown) (unknown) Approved by: Daniel (units (unknown) date) Andrew Cooley M.D. on unknown) 10/18/2020 at 16:30 05/02/2018 lumbar spine (unknown) (no (unknown) (unknown) Approved by: Edgar (units (unknown) date) Doc Chen on unknown) 05/03/2018 at 8:55 (unknown) (no (unknown) (unknown) Approved by: Romy (units (unknown) date) Doc Jacobo on unknown) 04/13/2022 at 16:37 (unknown) (no (unknown) (unknown) Approved by: Romy (units (unknown) date) Doc Jacobo on unknown) 04/13/2022 at 16:39? (unknown) (no (unknown) (unknown) As oral consent, we (units (unknown) date) did review the risks unknown) of the above stated procedure including (unknown) (no (unknown) (unknown) Assessment + Plan (units (unknown) date) unknown) (unknown) (no (unknown) (unknown) Attending Dr: (units ( unknown) date) Sonido Monahan D.O. unknown) (unknown) (no (unknown) (unknown) November. He reports (units (unknown) date) that he was moving unknown) some old carpet and rolled up and placed (unknown) (no (unknown) (unknown) BMI 26.3 (units (unkno wn) date) unknown) (unknown) (no (unknown) (unknown) BP 110/62 (units (unkn own) date) unknown) (unknown) (no (unknown) (unknown) Biceps (R/L):09/01 (units (unknown) date) 09/01 Triceps unknown) (R/L):09/01 / 09/01 Intrinsics (unknown) (no (unknown) (unknown) Blood Pressure (units (unknown) date) Location Rt brachial unknown) (unknown) (no (unknown) (unknown) Bones: No acute (units (unknown) date) fracture identified. unknown) There is dextrocurvature of the (unknown) (no (unknown) (unknown) Bones: No acute (units (unknown) date) fracture. Multilevel unknown) degenerative endplate sclerosis and (unknown) (no (unknown) (unknown) Bones: No fractures (units (unknown) date) or dislocations. No unknown) suspicious bony lesions. Visualized ribs (unknown) (no (unknown) (unknown) Bones:? No (units (unk nown) date) fractures or unknown) dislocations to the C7 level.? There is trace (unknown) (no (unknown) (unknown) Bulging disc likely (unit s (unknown) date) contacting right L5 unknown) and S1 nerve roots. (unknown) (no (unknown) (unknown) C-Spine Tenderness: (unit s (unknown) date) non-tender unknown) Spurling's Test (R/L): neg / neg (unknown) (no (unknown) (unknown) C-spine Flexion: 45 (unit s (unknown) date) C-spine Extension: unknown) 45 (unknown) (no (unknown) (unknown) C-spine Right (units ( unknown) date) Rotation: 70 C-spine unknown) Left Rotation: 70 (unknown) (no (unknown) (unknown) C3-4 and C4-5.? (units (unknown) date) Intervertebral disc unknown) space narrowing and osteophytosis is present (unknown) (no (unknown) (unknown) COMPARISON: None. (units (unknown) date) unknown) (unknown) (no (unknown) (unknown) COMPARISON: [facility] (units (unknown) date) [facility] unknown) [place], CR, SPINE LUMB MIN 4VW, (unknown) (no (unknown) (unknown) COMPARISON:? None. 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 unknown) (unknown) (no (unknown) (unknown) Chronic soft (units (u nknown) date) unknown) (unknown) (no (unknown) (unknown) Confirmed 04/13/22] (unit s (unknown) date) unknown) (unknown) (no (unknown) (unknown) Cross Arm (R/L): (units (unknown) date) neg / neg Neer unknown) Impingement Test (R/L): (unknown) (no (unknown) (unknown) : 1970 (units (unknown) date) Acct:[id number] unknown) (unknown) (no (unknown) (unknown) DTR UE (R/L): (units ( unknown) date) Biceps: (2+/2+); unknown) Triceps: (2+/2+) (unknown) (no (unknown) (unknown) Denies recent (units ( unknown) date) trauma, fever or unknown) weight loss of unknown origin, immunocompromise (unknown) (no (unknown) (unknown) Depo-Medrol 80mg (units (unknown) date) Today M19.019 - unknown) Primary osteoarthritis, unspecified shoulder (unknown) (no (unknown) (unknown) Depo-Medrol (units (un known) date) unknown) (unknown) (no (unknown) (unknown) Dept at (units (unkno wn) date) . unknown) (unknown) (no (unknown) (unknown) Details: (units (unkno wn) date) unknown) (unknown) (no (unknown) (unknown) Dextrocurvature (units (unknown) date) unknown) (unknown) (no (unknown) (unknown) Dictated by: Daniel (units (unknown) date) Andrew Cooley M.D. on unknown) 10/18/2020 at 16:27 (unknown) (no (unknown) (unknown) Dictated by: Daniel (units (unknown) date) Andrew Cooley M.D. on unknown) 10/18/2020 at 16:28 (unknown) (no (unknown) (unknown) Dictated by: Edgar (units (unknown) date) Doc Chen on unknown) 05/03/2018 at 8:20 (unknown) (no (unknown) (unknown) Dictated by: Rmoy (units (unknown) date) Doc Jacobo on unknown) 04/13/2022 at 16:37 (unknown) (no (unknown) (unknown) Dictated by: Romy (units (unknown) date) Doc Jacobo on unknown) 04/13/2022 at 16:38 ? ? 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 unknown) Moderate narrowing of the L4-L5 disc space. Mild (unknown) (no (unknown) (unknown) Diffuse facet (units ( unknown) date) unknown) (unknown) (no (unknown) (unknown) Diffuse lumbar (units (unknown) date) spondylosis and unknown) moderate L4-L5 disc degeneration, with slight (unknown) (no (unknown) (unknown) Diffuse spondylitic (unit s (unknown) date) changes. unknown) (unknown) (no (unknown) (unknown) Documented By: (units (unknown) date) Sonido Monahan D.O. unknown) 04/13/22 1606 (unknown) (no (unknown) (unknown) Dose Route Admin (units (unknown) date) Location Lot Number unknown) Expiration Date NDC (unknown) (no (unknown) (unknown) Endorses thoracic (units (unknown) date) HNP, lumbar sacral unknown) HNP, lumbosacral spondylosis, (unknown) (no (unknown) (unknown) Exam Narrative (units (unknown) date) unknown) (unknown) (no (unknown) (unknown) Exam Narrative: (units (unknown) date) unknown) (unknown) (no (unknown) (unknown) Exam (units (unkno wn) date) unknown) (unknown) (no (unknown) (unknown) External Rotation (units (unknown) date) at side (R/L): 45 / unknown) 45 Internal Rotation (R/L): (unknown) (no (unknown) (unknown) FINDINGS: (units (unkn own) date) unknown) (unknown) (no (unknown) (unknown) FINDINGS:? (units (unk nown) date) unknown) (unknown) (no (unknown) (unknown) Facet arthropathy, (units (unknown) date) lumbar unknown) (unknown) (no (unknown) (unknown) Family History (units (unknown) date) (Reviewed 04/13/22 @ unknown) 17:08 by Sonido Monahan DO) (unknown) (no (unknown) (unknown) Father Colon cancer (unit s (unknown) date) unknown) (unknown) (no (unknown) (unknown) Gait: normal (units (u nknown) date) Coordination: normal unknown) (unknown) (no (unknown) (unknown) General Appearance: (unit s (unknown) date) Well-nourished, well unknown) developed in no acute distress (unknown) (no (unknown) (unknown) Grandmother (units (un known) date) Stroke unknown) (unknown) (no (unknown) (unknown) HERE FOR RIGHT (units (unknown) date) SHOULDER PAIN unknown) (unknown) (no (unknown) (unknown) HPI (units (unkno wn) date) unknown) (unknown) (no (unknown) (unknown) Jack Test (R/L): (unit s (unknown) date) neg / neg unknown) Scapulothoracic motion (R/L): 2:1 (unknown) (no (unknown) (unknown) He reports no other (unit s (unknown) date) new traumas or unknown) illnesses at this time and reports feeling (unknown) (no (unknown) (unknown) Height 5 ft 11 in (units (unknown) date) unknown) (unknown) (no (unknown) (unknown) History of (units (unk nown) date) arthroscopy of knee unknown) (unknown) (no (unknown) (unknown) IMPRESSION: No (units (unknown) date) acute radiographic unknown) findings. (unknown) (no (unknown) (unknown) IMPRESSION: (units (un known) date) unknown) (unknown) (no (unknown) (unknown) IMPRESSION:? (units (u nknown) date) Degenerative change unknown) and foraminal stenosis as above. (unknown) (no (unknown) (unknown) INDICATIONS: PAIN (units (unknown) date) unknown) (unknown) (no (unknown) (unknown) INDICATIONS: RIGHT (units (unknown) date) SHOULDER PAIN unknown) (unknown) (no (unknown) (unknown) INDICATIONS:? NECK (units (unknown) date) PAIN unknown) (unknown) (no (unknown) (unknown) Imaging was (units (unk nown) date) personally reviewed unknown) and findings correlate with radiology reports as (unknown) (no (unknown) (unknown) Inspection/Palpatio (unit s (unknown) date) n UE (R/L): unknown) Non-tender bilaterally. (unknown) (no (unknown) (unknown) Intake Clinical (units (unknown) date) Staff unknown) (unknown) (no (unknown) (unknown) Intake Note: (units (u nknown) date) unknown) (unknown) (no (unknown) (unknown) Intake performed (units (unknown) date) by: Ade Infante unknown) (unknown) (no (unknown) (unknown) Intake (units (unkno wn) date) unknown) (unknown) (no (unknown) (unknown) Interventions/Proc. (unit s (unknown) date) unknown) (unknown) (no (unknown) (unknown) Interventions: (units (unknown) date) unknown) (unknown) (no (unknown) (unknown) Is patient in (units ( unknown) date) pain?: Yes (HERE FOR unknown) RIGHT SHOULDER AND LEFT ELBOW) Pain scale (1 (unknown) (no (unknown) (unknown) Endy and I discussed (unit s (unknown) date) at length his unknown) underlying pathology we discussed his current (unknown) (no (unknown) (unknown) Endy to tolerate (units (unknown) date) the procedure well unknown) noting prominent relief prior to dismissal (unknown) (no (unknown) (unknown) Michael presents (units (unknown) date) today for further unknown) evaluation and treatment of right shoulder (unknown) (no (unknown) (unknown) L4-5 and L5-S1 (units (unknown) date) levels causing unknown) moderate central canal stenosis and moderate to (unknown) (no (unknown) (unknown) L4-L5: Again noted (units (unknown) date) is diffuse disc unknown) bulge and superimposed broad-based central (unknown) (no (unknown) (unknown) L4. (units (unkno wn) date) unknown) (unknown) (no (unknown) (unknown) L5-S1: Diffuse disc (units (unknown) date) bulge and unknown) superimposed right lateral disc protrusion is seen (unknown) (no (unknown) (unknown) Lateral (units (unkno wn) date) epicondylitis unknown) (unknown) (no (unknown) (unknown) Laterality: right (units (unknown) date) Qualified Code(s): unknown) M77.11 - Lateral epicondylitis, (unknown) (no (unknown) (unknown) Loc: PAIN (units (unkn own) date) unknown) (unknown) (no (unknown) (unknown) Lower cervical (units (unknown) date) spondylosis also unknown) noted. (unknown) (no (unknown) (unknown) Lymph UE (R/L): No (units (unknown) date) axillary unknown) lymphadenopathy (unknown) (no (unknown) (unknown) MRI results: (units (u nknown) date) unknown) (unknown) (no (unknown) (unknown) MSK: System (units (un known) date) reviewed and no unknown) additional complaints, except as documented. 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 (units (u nknown) date) unknown) (unknown) (no (unknown) (unknown) Medical History (units (unknown) date) (Reviewed 04/13/22 @ unknown) 17:08 by Sonido Monahan DO) (unknown) (no (unknown) (unknown) Medications (units (un known) date) unknown) (unknown) (no (unknown) (unknown) Minimal (units (unkno wn) date) unknown) (unknown) (no (unknown) (unknown) Moderate to severe (units (unknown) date) central canal unknown) stenosis and bilateral neural foramina (unknown) (no (unknown) (unknown) Moderate to severe (units (unknown) date) foraminal stenosis unknown) is present on the right at C4-5 and (unknown) (no (unknown) (unknown) Mother Polyp, (units ( unknown) date) stomach unknown) (unknown) (no (unknown) (unknown) Neuro: System (units ( unknown) date) reviewed and no unknown) additional complaints, except as documented. (unknown) (no (unknown) (unknown) No Known Drug (units ( unknown) date) Allergies Allergy unknown) (Verified 04/13/22 16:07) (unknown) (no (unknown) (unknown) No fever, chills, (units (unknown) date) signs of infection, unknown) weakness after right L4, L5, S1 MB RFA (unknown) (no (unknown) (unknown) Greeley's Test (units (unknown) date) (R/L): neg / neg unknown) [place]ons Test (R/L): neg / neg (unknown) (no (unknown) (unknown) Objective Data (units (unknown) date) unknown) (unknown) (no (unknown) (unknown) Objective Data: (units (unknown) date) unknown) (unknown) (no (unknown) (unknown) Oblique images: No (units (unknown) date) pars defects. unknown) (unknown) (no (unknown) (unknown) Office Meds (units (un known) date) unknown) (unknown) (no (unknown) (unknown) Ordering Provider: (units (unknown) date) Sonido Monahan D.O. unknown) (unknown) (no (unknown) (unknown) Orders (units (unkno wn) date) unknown) (unknown) (no (unknown) (unknown) Orders: (units (unkno wn) date) unknown) (unknown) (no (unknown) (unknown) Orientation: (units (u nknown) date) Oriented to person, unknown) place and time. Mood / Affect: Calm (unknown) (no (unknown) (unknown) Oxygen Delivery (units (unknown) date) Method room air unknown) (unknown) (no (unknown) (unknown) PFSH (units (unkno wn) date) unknown) (unknown) (no (unknown) (unknown) PROCEDURE: XR (units ( unknown) date) LUMBAR SPINE MIN 4V unknown) (unknown) (no (unknown) (unknown) PROCEDURE: XR (units ( unknown) date) SHOULDER RT MIN 2V unknown) (unknown) (no (unknown) (unknown) PROCEDURE: XR (units ( unknown) date) THORACIC SPINE 3V unknown) (unknown) (no (unknown) (unknown) PROCEDURE:? XR (units (unknown) date) CERVICAL SPINE 4V OR unknown) 5V (unknown) (no (unknown) (unknown) Pain Scale (units (unk nown) date) unknown) (unknown) (no (unknown) (unknown) Pain Visit (units (unk nown) date) unknown) (unknown) (no (unknown) (unknown) Patient: (units (unkno wn) date) Michael Paulino unknown) MR#: [id number] (unknown) (no (unknown) (unknown) Performing (units (unk nown) date) Provider: Sonido unknown) DO Taniya (unknown) (no (unknown) (unknown) Plan (units (unkno wn) date) unknown) (unknown) (no (unknown) (unknown) Position Sitting (units (unknown) date) unknown) (unknown) (no (unknown) (unknown) Procedure: XR (units ( unknown) date) lumbar spine min 4V unknown) (unknown) (no (unknown) (unknown) Pulse 72 (units (unkno wn) date) unknown) (unknown) (no (unknown) (unknown) Pulse Oximetry (%) (units (unknown) date) 100 unknown) (unknown) (no (unknown) (unknown) Pulse Source (units (u nknown) date) Monitor unknown) (unknown) (no (unknown) (unknown) Qualifiers: (units (un known) date) unknown) (unknown) (no (unknown) (unknown) ROS Narrative (units ( unknown) date) unknown) (unknown) (no (unknown) (unknown) ROS Narrative: (units (unknown) date) unknown) (unknown) (no (unknown) (unknown) ROS (units (unkno wn) date) unknown) (unknown) (no (unknown) (unknown) Reason For Visit (units (unknown) date) unknown) (unknown) (no (unknown) (unknown) Sensation: (units (unk nown) date) Subjective normal unknown) median / ulnar / radial / axillary sensation (unknown) (no (unknown) (unknown) Shoulder Exam (units ( unknown) date) (Bilateral) unknown) (unknown) (no (unknown) (unknown) Signed By: (units (unk nown) date) <Electronically unknown) signed by Sonido Monahan D.O.> (unknown) (no (unknown) (unknown) Signed (units (unkno wn) date) unknown) (unknown) (no (unknown) (unknown) Smoking Status: (units (unknown) date) Never smoker unknown) (unknown) (no (unknown) (unknown) Soft tissues: No (units (unknown) date) paravertebral stripe unknown) thickening. (unknown) (no (unknown) (unknown) Soft tissues: No (units (unknown) date) suspicious soft unknown) tissue calcifications. (unknown) (no (unknown) (unknown) Soft tissues: (units ( unknown) date) Overlying bowel gas unknown) pattern is normal. No suspicious soft tissue (unknown) (no (unknown) (unknown) Soft tissues:? No (units (unknown) date) prevertebral soft unknown) tissue swelling.? (unknown) (no (unknown) (unknown) Speeds (R/L): neg / (unit s (unknown) date) neg Apprehension unknown) (R/L): neg /neg (unknown) (no (unknown) (unknown) Status: Acute (units ( unknown) date) unknown) (unknown) (no (unknown) (unknown) Status: Chronic (units (unknown) date) unknown) (unknown) (no (unknown) (unknown) Surgical History (units (unknown) date) (Reviewed 04/13/22 @ unknown) 17:08 by Sonido Monahan DO) (unknown) (no (unknown) (unknown) TECHNIQUE: 3 views (units (unknown) date) of the shoulder were unknown) acquired. (unknown) (no (unknown) (unknown) TECHNIQUE: 3 views (units (unknown) date) of the thoracic unknown) spine were acquired. (unknown) (no (unknown) (unknown) TECHNIQUE: 5 views (units (unknown) date) of the lumbar spine unknown) were acquired, including bilateral (unknown) (no (unknown) (unknown) TECHNIQUE:? 5 views (unit s (unknown) date) of the cervical unknown) spine acquired.? (unknown) (no (unknown) (unknown) Temp 98.2 F (units (un known) date) unknown) (unknown) (no (unknown) (unknown) Temp Source (units (un known) date) Temporal Artery Scan unknown) (unknown) (no (unknown) (unknown) [facility] (unit s (unknown) date) Management unknown) (unknown) (no (unknown) (unknown) [facility] shoulder was (units (unknown) date) prepped in usual unknown) sterile fashion with the use of chlorhexidine (unknown) (no (unknown) (unknown) They referred by did (unit s (unknown) date) a post injection unknown) instructions sheet as well as pain like to (unknown) (no (unknown) (unknown) This note may have (units (unknown) date) been all or unknown) partially generated using voice recognition (unknown) (no (unknown) (unknown) Tobacco + Substance (unit s (unknown) date) Use unknown) (unknown) (no (unknown) (unknown) Tobacco Status (units (unknown) date) unknown) (unknown) (no (unknown) (unknown) UE Skin (R/L): No (units (unknown) date) rashes or lesions. unknown) (unknown) (no (unknown) (unknown) Vasculature: 2+ (units (unknown) date) radial pulse unknown) bilaterally. (unknown) (no (unknown) (unknown) Visit Reasons: R (units (unknown) date) SHOULDER/ L ELBOW unknown) PAIN, RIGHT SHOULDER/L ELBOW (unknown) (no (unknown) (unknown) Vitals (units (unkno wn) date) unknown) (unknown) (no (unknown) (unknown) Weight 189 lb (units ( unknown) date) unknown) (unknown) (no (unknown) (unknown) XR cervical spine (units (unknown) date) 4V or 5V Today unknown) M25.519 - Pain in unspecified shoulder, M54.2 (unknown) (no (unknown) (unknown) XR shoulder RT min (units (unknown) date) 2V Today M25.511 - unknown) Pain in right shoulder (unknown) (no (unknown) (unknown) acetaminophen 325 (units (unknown) date) mg tablet (Tylenol) unknown) 650 mg PO Q6H PRN 03/10/20 [History (unknown) (no (unknown) (unknown) advancing was (units ( unknown) date) atraumatically unknown) introduced and advanced into the AC joint with (unknown) (no (unknown) (unknown) and C5-6.? Moderate (unit s (unknown) date) stenosis is present unknown) on the left at C6-7. (unknown) (no (unknown) (unknown) appear (units (unkno wn) date) unknown) (unknown) (no (unknown) (unknown) approximately 6-8 (units (unknown) date) weeks or to monitor unknown) his right shoulder to resolution and also (unknown) (no (unknown) (unknown) arthropathy. Lower (units (unknown) date) cervical spondylosis unknown) and facet arthropathy also noted. (unknown) (no (unknown) (unknown) arthrosis at (units (u nknown) date) unknown) (unknown) (no (unknown) (unknown) at C4-5 (units (unkno wn) date) unknown) (unknown) (no (unknown) (unknown) atorvastatin 10 mg (units (unknown) date) tablet 10 mg PO unknown) BEDTIME 04/13/22 [History Confirmed 04/13/22] (unknown) (no (unknown) (unknown) ay occur. (units (unkn own) date) Occasional unknown) wrong-word or 'sound-alike' substitutions may have (unknown) (no (unknown) (unknown) bilateral fibrosis (units (unknown) date) and hypertrophy of unknown) ligamentum flavum. Mild central canal (unknown) (no (unknown) (unknown) bilateral (units (unkn own) date) neuroforaminal unknown) narrowing as described in detail above, progressed (unknown) (no (unknown) (unknown) bilaterally (units (un known) date) unknown) (unknown) (no (unknown) (unknown) calcifications. (units (unknown) date) unknown) (unknown) (no (unknown) (unknown) canal (units (unkno wn) date) unknown) (unknown) (no (unknown) (unknown) complications (units ( unknown) date) noting significant unknown) relief prior to dismissal in excellent (unknown) (no (unknown) (unknown) condition under (units (unknown) date) their own power. unknown) (unknown) (no (unknown) (unknown) direct (units (unkno wn) date) visualization unknown) following negative aspiration, 3cc including 1 cc or 80 mg (unknown) (no (unknown) (unknown) disc (units (unkno wn) date) unknown) (unknown) (no (unknown) (unknown) discussed treatment (unit s (unknown) date) options available to unknown) him including anti-inflammatories (unknown) (no (unknown) (unknown) edema. (units (unkno wn) date) unknown) (unknown) (no (unknown) (unknown) for shoulder (units (u nknown) date) exercises unknown) bilaterally to improve his range of motion reduce his (unknown) (no (unknown) (unknown) guarantees or (units ( unknown) date) assurances of unknown) complete relief applied. Please see the procedure (unknown) (no (unknown) (unknown) have occurred. If (units (unknown) date) there are any unknown) questions, please contact the Medical Records (unknown) (no (unknown) (unknown) home exercise (units ( unknown) date) program was reviewed unknown) and provided with him today. (unknown) (no (unknown) (unknown) in excellent (units (u nknown) date) condition own his unknown) own power. I would like to follow up with him in (unknown) (no (unknown) (unknown) incident. Patient (units (unknown) date) tolerated the unknown) procedure well without signs simply (unknown) (no (unknown) (unknown) infection, allergic (unit s (unknown) date) reaction, nerve unknown) injury, stroke, paralysis and and the (unknown) (no (unknown) (unknown) inflammatories and (units (unknown) date) Tylenol. unknown) (unknown) (no (unknown) (unknown) intact. (units (unkno wn) date) unknown) (unknown) (no (unknown) (unknown) intravenous drug (units (unknown) date) use, sustained unknown) glucocorticoid use, osteoporosis, or a focal (unknown) (no (unknown) (unknown) joint DJD with (units (unknown) date) associated right unknown) shoulder impingement. We did discuss the need (unknown) (no (unknown) (unknown) left-sided neural (units (unknown) date) foramina narrowing unknown) is seen, also progressed since previous (unknown) (no (unknown) (unknown) length and verbal (units (unknown) date) consent was obtained unknown) today, As oral consent, we did review the (unknown) (no (unknown) (unknown) listed below. (units ( unknown) date) unknown) (unknown) (no (unknown) (unknown) moderate (units (unkno wn) date) unknown) (unknown) (no (unknown) (unknown) monitor resolution (units (unknown) date) of his left lateral unknown) epicondylitis. (unknown) (no (unknown) (unknown) monitor the relief (units (unknown) date) prior to our unknown) follow-up visit. (unknown) (no (unknown) (unknown) narrowing is (units (u nknown) date) unknown) (unknown) (no (unknown) (unknown) narrowing (units (unkn own) date) unknown) (unknown) (no (unknown) (unknown) neg / neg (units (unkn own) date) unknown) (unknown) (no (unknown) (unknown) neurological (units (u nknown) date) deficit with unknown) progressive or disabling symptoms. (unknown) (no (unknown) (unknown) no upper extremity (units (unknown) date) paresthesias or unknown) weakness associated with this. He reports (unknown) (no (unknown) (unknown) not limited to (units (unknown) date) bleeding, infection, unknown) allergic reaction, nerve injury, stroke, (unknown) (no (unknown) (unknown) note for full (units ( unknown) date) details. unknown) (unknown) (no (unknown) (unknown) noted at this level (unit s (unknown) date) progressed since unknown) 2016 study. Finding is slightly worse on (unknown) (no (unknown) (unknown) noted. Moderate to (units (unknown) date) severe right-sided unknown) neuroforaminal narrowing and mild to (unknown) (no (unknown) (unknown) oblique views. (units (unknown) date) unknown) (unknown) (no (unknown) (unknown) obtained today (units (unknown) date) without guarantees unknown) or assurances of complete relief applied. (unknown) (no (unknown) (unknown) occurred due to the (unit s (unknown) date) inherent limitations unknown) of voice recognition software. Please (unknown) (no (unknown) (unknown) of Depo-Medrol (units (unknown) date) combined with 2cc of unknown) 0.5% ropivacaine was infiltrated without (unknown) (no (unknown) (unknown) of the remaining (units (unknown) date) lumbar disc spaces. unknown) Trace retrolisthesis of L2 on L3 and L3 on (unknown) (no (unknown) (unknown) on top of his right (unit s (unknown) date) shoulder. He reports unknown) he developed the right shoulder pain (unknown) (no (unknown) (unknown) or (units (unkno wn) date) immunosuppressive unknown) therapy, previous or current cancer diagnosis, history of (unknown) (no (unknown) (unknown) out under (units (unkn own) date) ultrasound guidance. unknown) The right AC joint was palpated. A 25 gauge was (unknown) (no (unknown) (unknown) pain. He reports (units (unknown) date) right shoulder pain unknown) began after he moved into his new house in (unknown) (no (unknown) (unknown) paralysis and (unit s (unknown) date) and the patient unknown) elected to proceed. Informed consent was (unknown) (no (unknown) (unknown) patient elected to (units (unknown) date) proceed. Informed unknown) consent was obtained today without (unknown) (no (unknown) (unknown) possible (units (unkno wn) date) ultrasound-guided unknown) injection as well as the home exercise program. The (unknown) (no (unknown) (unknown) progression (units (un known) date) unknown) (unknown) (no (unknown) (unknown) protrusion. 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 (unknown) (no (unknown) (unknown) right elbow (units (un known) date) unknown) (unknown) (no (unknown) (unknown) risks of the above (units (unknown) date) stated procedure unknown) including not limited to bleeding, (unknown) (no (unknown) (unknown) scrub. (units (unkno wn) date) Visualization of the unknown) joint space as well as the injection was carried (unknown) (no (unknown) (unknown) seen. (units (unkno wn) date) unknown) (unknown) (no (unknown) (unknown) severe (units (unkno wn) date) unknown) (unknown) (no (unknown) (unknown) shoulder (units (unkno wn) date) impingement as well unknown) as his subacromial impingement. Subsequently we (unknown) (no (unknown) (unknown) shoulder pathology (units (unknown) date) in his underlying unknown) cervical spondylosis. We discussed his AC (unknown) (no (unknown) (unknown) side with bulging (units (unknown) date) disc likely unknown) contacting bilateral L4 and L5 nerve roots. (unknown) (no (unknown) (unknown) since 1999 at (units ( unknown) date) unknown) (unknown) (no (unknown) (unknown) since 11/15/16. (units (unknown) date) unknown) (unknown) (no (unknown) (unknown) software. Although (units (unknown) date) every effort is made unknown) to edit content, digital advertising analyst errors m (unknown) (no (unknown) (unknown) spurring. (units (unkn own) date) unknown) (unknown) (no (unknown) (unknown) stenosis is present (unit s (unknown) date) at C5-6.? Severe unknown) foraminal stenosis is present on the left (unknown) (no (unknown) (unknown) stenosis is (units (un known) date) unknown) (unknown) (no (unknown) (unknown) stenosis, not (units ( unknown) date) significantly unknown) changed from previous study. (unknown) (no (unknown) (unknown) study. (units (unkno wn) date) unknown) (unknown) (no (unknown) (unknown) that is worse with (units (unknown) date) forward flexion as unknown) well as cross-arm adduction. He reports (unknown) (no (unknown) (unknown) the above-stated (units (unknown) date) plan. unknown) (unknown) (no (unknown) (unknown) the mid cervical (units (unknown) date) spine. unknown) (unknown) (no (unknown) (unknown) the right (units (unkn own) date) unknown) (unknown) (no (unknown) (unknown) the symptoms (units (u nknown) date) persist despite ice unknown) massage as well as [id number] anti (unknown) (no (unknown) (unknown) this time he has (units (unknown) date) been fully unknown) vaccinated (unknown) (no (unknown) (unknown) thoracic spine. (units (unknown) date) Multilevel unknown) degenerative endplate sclerosis and spurring. (unknown) (no (unknown) (unknown) tissue (units (unkno wn) date) calcification unknown) projects at the base of the posterior cervical spine. (unknown) (no (unknown) (unknown) visualized (units (unk nown) date) unknown) (unknown) (no (unknown) (unknown) well maintain the (units (unknown) date) Covid19 social unknown) restrictions without cough fever fatigue at (unknown) (no (unknown) (unknown) with (units (unkno wn) date) unknown) (unknown) (no (unknown) (unknown) within (units (unkno wn) date) unknown) Result panel 10 (unknown) (no (unknown) (unknown) (no value) (units (unk nown) date) unknown) (unknown) (no (unknown) (unknown) (1) Encounter (units ( unknown) date) for preprocedural unknown) laboratory examination: (unknown) (no (unknown) (unknown) COVID-19 (units (u nknown) date) unknown) (unknown) (no (unknown) (unknown) [id number] (units (unkn own) date) unknown) (unknown) (no (unknown) (unknown) 05/08/22 (units (unkno wn) date) unknown) (unknown) (no (unknown) (unknown) Age/Sex: 52 / M (units (unknown) date) Date of Service: unknown) (unknown) (no (unknown) (unknown) Allergies (units (unkn own) date) unknown) (unknown) (no (unknown) (unknown) [place] (units ( unknown) date) [id number] unknown) (unknown) (no (unknown) (unknown) Attending Dr: (units ( unknown) date) Geo Mckeon MD unknown) (unknown) (no (unknown) (unknown) Code(s): (units (unkno wn) date) unknown) (unknown) (no (unknown) (unknown) : 1970 (units (unknown) date) Acct:[id number] unknown) (unknown) (no (unknown) (unknown) Dept at (units (unkno wn) date) . unknown) (unknown) (no (unknown) (unknown) Documented By: (units (unknown) date) Geo Mckeon MD unknown) 05/08/22 1114 (unknown) (no (unknown) (unknown) Draft (units (unkno wn) date) unknown) (unknown) (no (unknown) (unknown) Evaluation/Scree (units (unknown) date) kindra for possible unknown) COVID-19 completed?: Yes- COVID-19 CPT (unknown) (no (unknown) (unknown) Intake Note: (units (u nknown) date) unknown) (unknown) (no (unknown) (unknown) Intake (units (unkno wn) date) unknown) (unknown) (no (unknown) (unknown) [facility] (units (unknown) date) unknown) (unknown) (no (unknown) (unknown) Loc: [facility] (units (unkno wn) date) unknown) (unknown) (no (unknown) (unknown) No Known Drug (units ( unknown) date) Allergies Allergy unknown) (Verified 04/13/22 16:07) (unknown) (no (unknown) (unknown) Note (units (unkno wn) date) unknown) (unknown) (no (unknown) (unknown) Nurse Office (units (u nknown) date) Visit unknown) (unknown) (no (unknown) (unknown) PRE-PROCEDURE (units ( unknown) date) COVID TEST. PT. unknown) DENIES ANY SYMPTOMS. TEST EXPLAINED AND PT. (unknown) (no (unknown) (unknown) Patient: (units (unkno wn) date) Michael Paulino unknown) MR#: M (unknown) (no (unknown) (unknown) Reason For Visit (units (unknown) date) unknown) (unknown) (no (unknown) (unknown) Signed By: (units (unk nown) date) unknown) (unknown) (no (unknown) (unknown) Smoking Status: (units (unknown) date) Never smoker unknown) (unknown) (no (unknown) (unknown) TOLERATED WELL. (units (unknown) date) unknown) (unknown) (no (unknown) (unknown) This note may (units ( unknown) date) have been all or unknown) partially generated using voice recognition (unknown) (no (unknown) (unknown) Tobacco Status (units (unknown) date) unknown) (unknown) (no (unknown) (unknown) Visit Diagnosis (units (unknown) date) unknown) (unknown) (no (unknown) (unknown) Visit Reasons: (units (unknown) date) Linda unknown) (unknown) (no (unknown) (unknown) Z01.812 - (units (unkn own) date) Encounter for unknown) preprocedural laboratory examination (unknown) (no (unknown) (unknown) have occurred. (units (unknown) date) If there are any unknown) questions, please contact the Medical Records (unknown) (no (unknown) (unknown) may occur. (units (unk nown) date) Occasional unknown) wrong-word or 'sound-alike' substitutions may have (unknown) (no (unknown) (unknown) occurred due to (units (unknown) date) the inherent unknown) limitations of voice recognition software. Please (unknown) (no (unknown) (unknown) read the note (units ( unknown) date) carefully and unknown) recognize, using context, where these substitutions (unknown) (no (unknown) (unknown) software. (units (unkn own) date) Although every unknown) effort is made to edit content, digital advertising analyst errors Result panel 11 (unknown) (no date) (unknown) (unknown) Negative (units (unkn own) unknown) (unknown) (no date) (unknown) (unknown) Negative (units (unkn own) unknown) Result panel 12 (unknown) (no (unknown) (unknown) (no value) (units (unk nown) date) unknown) (unknown) (no (unknown) (unknown) (1) Encounter (units ( unknown) date) for preprocedural unknown) laboratory examination: (unknown) (no (unknown) (unknown) COVID-19 (units (u nknown) date) unknown) (unknown) (no (unknown) (unknown) [id number] (units (unkn own) date) unknown) (unknown) (no (unknown) (unknown) 05/08/22 1640 (units ( unknown) date) unknown) (unknown) (no (unknown) (unknown) 05/08/22 (units (unkno wn) date) unknown) (unknown) (no (unknown) (unknown) Age/Sex: 52 / M (units (unknown) date) Date of Service: unknown) (unknown) (no (unknown) (unknown) Allergies (units (unkn own) date) unknown) (unknown) (no (unknown) (unknown) [place], [place] (units ( unknown) date) [id number] unknown) (unknown) (no (unknown) (unknown) Attending Dr: (units ( unknown) date) Geo Mckeon MD unknown) (unknown) (no (unknown) (unknown) Code(s): (units (unkno wn) date) unknown) (unknown) (no (unknown) (unknown) : 1970 (units (unknown) date) Acct:[id number] unknown) (unknown) (no (unknown) (unknown) Dept at (units (unkno wn) date) . unknown) (unknown) (no (unknown) (unknown) Documented By: (units (unknown) date) Geo Mckeon MD unknown) 05/08/22 1114 (unknown) (no (unknown) (unknown) Evaluation/Scree (units (unknown) date) kindra for possible unknown) COVID-19 completed?: Yes- COVID-19 CPT (unknown) (no (unknown) (unknown) Intake Note: (units (u nknown) date) unknown) (unknown) (no (unknown) (unknown) Intake (units (unkno wn) date) unknown) (unknown) (no (unknown) (unknown) [facility] (units (unknown) date) unknown) (unknown) (no (unknown) (unknown) Loc: [facility] (units (unkno wn) date) unknown) (unknown) (no (unknown) (unknown) No Known Drug (units ( unknown) date) Allergies Allergy unknown) (Verified 04/13/22 16:07) (unknown) (no (unknown) (unknown) Note (units (unkno wn) date) unknown) (unknown) (no (unknown) (unknown) Nurse Office (units (u nknown) date) Visit unknown) (unknown) (no (unknown) (unknown) PRE-PROCEDURE (units ( unknown) date) COVID TEST. PT. unknown) DENIES ANY SYMPTOMS. TEST EXPLAINED AND PT. (unknown) (no (unknown) (unknown) Patient: (units (unkno wn) date) Endy Paulinogonzalo Campa unknown) MR#: M (unknown) (no (unknown) (unknown) Reason For Visit (units (unknown) date) unknown) (unknown) (no (unknown) (unknown) Signed By: (units (unk nown) date) <Electronically unknown) signed by Geo Mckeon MD> (unknown) (no (unknown) (unknown) Signed (units (unkno wn) date) unknown) (unknown) (no (unknown) (unknown) Smoking Status: (units (unknown) date) Never smoker unknown) (unknown) (no (unknown) (unknown) TOLERATED WELL. (units (unknown) date) unknown) (unknown) (no (unknown) (unknown) This note may (units ( unknown) date) have been all or unknown) partially generated using voice recognition (unknown) (no (unknown) (unknown) Tobacco Status (units (unknown) date) unknown) (unknown) (no (unknown) (unknown) Visit Diagnosis (units (unknown) date) unknown) (unknown) (no (unknown) (unknown) Visit Reasons: (units (unknown) date) Linda unknown) (unknown) (no (unknown) (unknown) Z01.812 - (units (unkn own) date) Encounter for unknown) preprocedural laboratory examination (unknown) (no (unknown) (unknown) have occurred. (units (unknown) date) If there are any unknown) questions, please contact the Medical Records (unknown) (no (unknown) (unknown) may occur. (units (unk nown) date) Occasional unknown) wrong-word or 'sound-alike' substitutions may have (unknown) (no (unknown) (unknown) occurred due to (units (unknown) date) the inherent unknown) limitations of voice recognition software. Please (unknown) (no (unknown) (unknown) read the note (units ( unknown) date) carefully and unknown) recognize, using context, where these substitutions (unknown) (no (unknown) (unknown) software. (units (unkn own) date) Although every unknown) effort is made to edit content, digital advertising analyst errors Result panel 13 (unknown) (no date) (unknown) (unknown) (no value) (units 191 39-5 unknown) (unknown) (no date) (unknown) (unknown) (no value) (units 226 33-2 unknown) (unknown) (no date) (unknown) (unknown) (no value) (units 226 34-0 unknown) (unknown) (no date) (unknown) (unknown) (no value) (units 226 37-3 unknown) (unknown) (no date) (unknown) (unknown) (no value) (units 495 60-6 unknown) (unknown) (no date) (unknown) (unknown) (no value) (units 527 97-8 unknown) (unknown) (no date) (unknown) (unknown) (no value) (units (un known) unknown) (unknown) (no date) (unknown) (unknown) (no value) (units (un known) unknown) (unknown) (no date) (unknown) (unknown) (no value) (units (un known) unknown) (unknown) (no date) (unknown) (unknown) (no value) (units (un known) unknown) (unknown) (no date) (unknown) (unknown) (no value) (units (un known) unknown) (unknown) (no date) (unknown) (unknown) (no value) (units (un known) unknown) Result panel 14 (unknown) (no (unknown) (unknown) (no value) (units (unk nown) date) unknown) (unknown) (no (unknown) (unknown) (Suprep Bowel Prep (units (unknown) date) Kit) unknown) (unknown) (no (unknown) (unknown) (Tylenol) Score (units (unknown) date) 1-3) unknown) (unknown) (no (unknown) (unknown) [phone] (units (unkn own) date) unknown) (unknown) (no (unknown) (unknown) 05/09/22 Rx (units (un known) date) unknown) (unknown) (no (unknown) (unknown) 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 (unknown) (no (unknown) (unknown) Age/Sex: 52 / M (units (unknown) date) unknown) (unknown) (no (unknown) (unknown) Allergies (units (unkn own) date) unknown) (unknown) (no (unknown) (unknown) Allergy/AdvReac (units (unknown) date) Type Severity unknown) Reaction Status Date / Time (unknown) (no (unknown) (unknown) Assessment + Plan (units (unknown) date) unknown) (unknown) (no (unknown) (unknown) Chief complaint: (units (unknown) date) EGD/Colonoscopy unknown) (unknown) (no (unknown) (unknown) 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 unknown) (unknown) (no (unknown) (unknown) 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 unknown) (unknown) (no (unknown) (unknown) Critical Care (units ( unknown) date) time: unknown) (unknown) (no (unknown) (unknown) : 1970 (units (unknown) date) Acct:[id number] unknown) (unknown) (no (unknown) (unknown) Date Patient Seen: (units (unknown) date) 05/09/22 unknown) (unknown) (no (unknown) (unknown) Date of Service: (units (unknown) date) 05/09/22 unknown) (unknown) (no (unknown) (unknown) Facet arthropathy, (units (unknown) date) lumbar unknown) (unknown) (no (unknown) (unknown) Family + Social (units (unknown) date) History unknown) (unknown) (no (unknown) (unknown) Family History (units (unknown) date) (Reviewed 05/09/22 unknown) @ 13:04 by Geo Mckeon MD) (unknown) (no (unknown) (unknown) Father Colon (units (u nknown) date) cancer unknown) (unknown) (no (unknown) (unknown) Grandmother (units (un known) date) Stroke unknown) (unknown) (no (unknown) (unknown) History + Physical (units (unknown) date) Report unknown) (unknown) (no (unknown) (unknown) History of Present (units (unknown) date) Illness unknown) (unknown) (no (unknown) (unknown) History of (units (unk nown) date) arthroscopy of knee unknown) (unknown) (no (unknown) (unknown) History (units (unkno wn) date) unknown) (unknown) (no (unknown) (unknown) Home Medications (units (unknown) date) and Allergies unknown) (unknown) (no (unknown) (unknown) Home Medications (units (unknown) date) unknown) (unknown) (no (unknown) (unknown) I spent a total of (units (unknown) date) [] minutes of unknown) critical care time on this patient's care (unknown) (no (unknown) (unknown) [facility] (units (unknown) date) [address] unknown) [place] [address] (unknown) (no (unknown) (unknown) Lateral (units (unkno wn) date) epicondylitis unknown) (unknown) (no (unknown) (unknown) Medical History (units (unknown) date) (Reviewed 05/09/22 unknown) @ 13:04 by Geo Mckeon MD) (unknown) (no (unknown) (unknown) Medication (units (unk nown) date) Instructions unknown) Recorded Confirmed Type (unknown) (no (unknown) (unknown) Meds (units (unkno wn) date) unknown) (unknown) (no (unknown) (unknown) Mother Polyp, (units ( unknown) date) stomach unknown) (unknown) (no (unknown) (unknown) Narrative: (units (unk nown) date) unknown) (unknown) (no (unknown) (unknown) No Known Drug (units ( unknown) date) Allergies Allergy unknown) Verified 05/09/22 12:59 (unknown) (no (unknown) (unknown) Patient History (units (unknown) date) unknown) (unknown) (no (unknown) (unknown) Patient: (units (unkno wn) date) Michael Paulino unknown) MR#: M (unknown) (no (unknown) (unknown) Provider: (units (unkn own) date) Geo Mckeon MD unknown) (unknown) (no (unknown) (unknown) Signed By: (units (unk nown) date) unknown) (unknown) (no (unknown) (unknown) Smoking Status (units (unknown) date) Never smoker unknown) (unknown) (no (unknown) (unknown) Surgical History (units (unknown) date) (Reviewed 05/09/22 unknown) @ 13:04 by Geo Mckeon MD) (unknown) (no (unknown) (unknown) The patient (units (un known) date) presents for unknown) colorectal screening. They have never had any previous (unknown) (no (unknown) (unknown) Time Patient Seen: (units (unknown) date) 13:04 unknown) (unknown) (no (unknown) (unknown) Time Spent With (units (unknown) date) Patient unknown) (unknown) (no (unknown) (unknown) Tobacco + (units (unkn own) date) Substance use: unknown) (unknown) (no (unknown) (unknown) abdominal pain, (units (unknown) date) loss of appetite, unknown) unexplained weight loss, change in bowel (unknown) (no (unknown) (unknown) acetaminophen 325 (units (unknown) date) mg tablet 650 mg PO unknown) Q6H PRN Pain (Scale 03/10/20 05/09/22 (unknown) (no (unknown) (unknown) atorvastatin 10 mg (units (unknown) date) tablet 10 mg PO unknown) BEDTIME 04/13/22 05/09/22 History (unknown) (no (unknown) (unknown) examination for (units (unknown) date) such. Father with a unknown) history of colon cancer.. On further (unknown) (no (unknown) (unknown) gram-3.13 gram-1.6 (units (unknown) date) gram oral soln #354 unknown) mL (unknown) (no (unknown) (unknown) habits, or blood (units (unknown) date) per rectum. unknown) (unknown) (no (unknown) (unknown) history denies any (units (unknown) date) recent unknown) gastrointestinal symptoms. No nausea, vomiting, (unknown) (no (unknown) (unknown) sodium,potassium,m (units (unknown) date) ag sulfates 17.5 unknown) See Rx Instructions PO .COMPLEX 05/03/22 (unknown) (no (unknown) (unknown) today; this time (units (unknown) date) is exclusive of unknown) procedural time. Result panel 15 (unknown) (no (unknown) (unknown) (no value) (units (unk nown) date) unknown) (unknown) (no (unknown) (unknown) (Tylenol) Score (units (unknown) date) 1-3) unknown) (unknown) (no (unknown) (unknown) [id number] (units (unkn own) date) unknown) (unknown) (no (unknown) (unknown) 05/09/22 1336 (units ( unknown) date) unknown) (unknown) (no (unknown) (unknown) 52-year-old man (units (unknown) date) personal history of unknown) colonic polyps and chronic reflux here for (unknown) (no (unknown) (unknown) Abdomen soft (units (u nknown) date) nontender unknown) nondistended (unknown) (no (unknown) (unknown) 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 (unknown) (no (unknown) (unknown) Age/Sex: 52 / M (units (unknown) date) unknown) (unknown) (no (unknown) (unknown) Allergies (units (unkn own) date) unknown) (unknown) (no (unknown) (unknown) Allergy/AdvReac (units (unknown) date) Type Severity unknown) Reaction Status Date / Time (unknown) (no (unknown) (unknown) Assessment + Plan (units (unknown) date) narrative: unknown) (unknown) (no (unknown) (unknown) Assessment + Plan (units (unknown) date) unknown) (unknown) (no (unknown) (unknown) Chief complaint: (units (unknown) date) EGD/Colonoscopy unknown) (unknown) (no (unknown) (unknown) 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 unknown) (unknown) (no (unknown) (unknown) 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 unknown) (unknown) (no (unknown) (unknown) Critical Care (units ( unknown) date) time: unknown) (unknown) (no (unknown) (unknown) : 1970 (units (unknown) date) Acct:[id number] unknown) (unknown) (no (unknown) (unknown) Date Patient Seen: (units (unknown) date) 05/09/22 unknown) (unknown) (no (unknown) (unknown) Date of Service: (units (unknown) date) 05/09/22 unknown) (unknown) (no (unknown) (unknown) Exam Narrative: (units (unknown) date) unknown) (unknown) (no (unknown) (unknown) Exam (units (unkno wn) date) unknown) (unknown) (no (unknown) (unknown) Facet arthropathy, (units (unknown) date) lumbar unknown) (unknown) (no (unknown) (unknown) Family + Social (units (unknown) date) History unknown) (unknown) (no (unknown) (unknown) Family History (units (unknown) date) (Reviewed 05/09/22 unknown) @ 13:34 by Geo Mckeon MD) (unknown) (no (unknown) (unknown) Father Colon (units (u nknown) date) cancer unknown) (unknown) (no (unknown) (unknown) General adult male (units (unknown) date) alert oriented no unknown) acute distress (unknown) (no (unknown) (unknown) Grandmother (units (un known) date) Stroke unknown) (unknown) (no (unknown) (unknown) History + Physical (units (unknown) date) Report unknown) (unknown) (no (unknown) (unknown) History of Present (units (unknown) date) Illness unknown) (unknown) (no (unknown) (unknown) History of (units (unk nown) date) arthroscopy of knee unknown) (unknown) (no (unknown) (unknown) History (units (unkno wn) date) unknown) (unknown) (no (unknown) (unknown) Home Medications (units (unknown) date) and Allergies unknown) (unknown) (no (unknown) (unknown) Home Medications (units (unknown) date) unknown) (unknown) (no (unknown) (unknown) I spent a total of (units (unknown) date) [] minutes of unknown) critical care time on this patient's care (unknown) (no (unknown) (unknown) [facility] (units (unknown) date) [address] unknown) [place] [address] (unknown) (no (unknown) (unknown) Lateral (units (unkno wn) date) epicondylitis unknown) (unknown) (no (unknown) (unknown) Medical History (units (unknown) date) (Reviewed 05/09/22 unknown) @ 13:34 by Geo Mckeon MD) (unknown) (no (unknown) (unknown) Medication (units (unk nown) date) Instructions unknown) Recorded Confirmed Type (unknown) (no (unknown) (unknown) Meds (units (unkno wn) date) unknown) (unknown) (no (unknown) (unknown) Mother Polyp, (units ( unknown) date) stomach unknown) (unknown) (no (unknown) (unknown) Narrative (units (unkn own) date) unknown) (unknown) (no (unknown) (unknown) Narrative: (units (unk nown) date) unknown) (unknown) (no (unknown) (unknown) No Known Drug (units ( unknown) date) Allergies Allergy unknown) Verified 05/09/22 12:59 (unknown) (no (unknown) (unknown) Patient History (units (unknown) date) unknown) (unknown) (no (unknown) (unknown) Patient is here (units (unknown) date) for colorectal unknown) screening with colonoscopy and EGD. Personal (unknown) (no (unknown) (unknown) Patient: (units (unkno wn) date) LeonelpierreMichael song Katheryn unknown) MR#: M (unknown) (no (unknown) (unknown) Provider: (units (unkn own) date) Geo Mckeon MD unknown) (unknown) (no (unknown) (unknown) Signed (units (unkno wn) date) By:<Electronically unknown) signed by Geo Mckeon MD> (unknown) (no (unknown) (unknown) Smoking Status (units (unknown) date) Never smoker unknown) (unknown) (no (unknown) (unknown) Surgical History (units (unknown) date) (Reviewed 05/09/22 unknown) @ 13:34 by Geo Mckeon MD) (unknown) (no (unknown) (unknown) Time Patient Seen: (units (unknown) date) 13:04 unknown) (unknown) (no (unknown) (unknown) Time Spent With (units (unknown) date) Patient unknown) (unknown) (no (unknown) (unknown) Tobacco + (units (unkn own) date) Substance use: unknown) (unknown) (no (unknown) (unknown) acetaminophen 325 (units (unknown) date) mg tablet 650 mg PO unknown) Q6H PRN Pain (Scale 03/10/20 05/09/22 (unknown) (no (unknown) (unknown) answered he is in (units (unknown) date) agreement with this unknown) plan (unknown) (no (unknown) (unknown) atorvastatin 10 mg (units (unknown) date) tablet 10 mg PO unknown) BEDTIME 04/13/22 05/09/22 History (unknown) (no (unknown) (unknown) colonoscopy and (units (unknown) date) esophagoduodenoscop unknown) y. Overview the procedure was discussed with (unknown) (no (unknown) (unknown) history denies any (units (unknown) date) recent unknown) gastrointestinal symptoms. No nausea, vomiting, loss (unknown) (no (unknown) (unknown) history of colonic (units (unknown) date) polyps, last unknown) colonoscopy 5 years ago. He is a long history (unknown) (no (unknown) (unknown) no unintentional (units (unknown) date) weight loss. Father unknown) with a history of colon cancer.. On further (unknown) (no (unknown) (unknown) of GERD and he has (units (unknown) date) occasional unknown) dyspepsia and epigastric discomfort. No dysphagia (unknown) (no (unknown) (unknown) of appetite, (units (u nknown) date) unexplained weight unknown) loss, change in bowel habits, or blood per (unknown) (no (unknown) (unknown) perforation, (units (u nknown) date) anesthetic unknown) complication were discussed. Questions have been (unknown) (no (unknown) (unknown) rectum. (units (unkno wn) date) unknown) (unknown) (no (unknown) (unknown) the patient. (units (u nknown) date) Procedural risks unknown) including bleeding, missed diagnosis, intestinal (unknown) (no (unknown) (unknown) today; this time (units (unknown) date) is exclusive of unknown) procedural time. Result panel 16 (unknown) (no (unknown) (unknown) (no value) (units (unk nown) date) unknown) (unknown) (no (unknown) (unknown) 'RECTUM': (units (unkn own) date) unknown) (unknown) (no (unknown) (unknown) (units (unknown) date) unknown) (unknown) (no (unknown) (unknown) Performed at: (units (unknown) date) 01 unknown) (unknown) (no (unknown) (unknown) . 01 (units (unkno wn) date) unknown) (unknown) (no (unknown) (unknown) /CPE 05/10/2022 (units (unknown) date) 0922 Local unknown) (unknown) (no (unknown) (unknown) 0.4 x 0.3 x 0.2 (units (unknown) date) cm submitted unknown) entirely in 1 cassette(s) (unknown) (no (unknown) (unknown) [address] (units (unknown) date) unknown) (unknown) (no (unknown) (unknown) [address] (units (unknown) date) [address], unknown) [place], [place] [id number] (unknown) (no (unknown) (unknown) [id number] (units (unkno wn) date) unknown) (unknown) (no (unknown) (unknown) [place], [place] (units ( unknown) date) [address] unknown) (unknown) (no (unknown) (unknown) CPT . (units (unkno wn) date) unknown) (unknown) (no (unknown) (unknown) Collection Date: (units (unknown) date) 05/09/22 unknown) (unknown) (no (unknown) (unknown) D12.8 (units (unkno wn) date) unknown) (unknown) (no (unknown) (unknown) DD/ (units (unknown) date) 0000 unknown) (unknown) (no (unknown) (unknown) Date of : (units (unknown) date) 1970 Admit unknown) Date: 05/09/22 (unknown) (no (unknown) (unknown) Diagnosis: (units (unk nown) date) unknown) (unknown) (no (unknown) (unknown) Dictated By: (units (u nknown) date) Abimbola Ashley unknown) (unknown) (no (unknown) (unknown) Electronically (units (unknown) date) signed: . unknown) (unknown) (no (unknown) (unknown) Gross (units (unkno wn) date) description: . unknown) (unknown) (no (unknown) (unknown) [facility] (units (unknown) date) unknown) (unknown) (no (unknown) (unknown) Abimbola Morales (units (unk nown) date) MD Dion, unknown) Pathologist (unknown) (no (unknown) (unknown) [facility] (units ( unknown) date) Number: unknown) [id number] (unknown) (no (unknown) (unknown) [facility] (units (unknown) date) [place] [facility] unknown) (unknown) (no (unknown) (unknown) MD Pierce (units (unkn own) date) Yulisa VERA Phone: unknown) [phone] (unknown) (no (unknown) (unknown) (units (unknown) date) Dictating Dr: unknown) Abimbola Ashley MD (unknown) (no (unknown) (unknown) MRV 05/11/2022 (units (unknown) date) 1442 Local unknown) (unknown) (no (unknown) (unknown) Material (units (unkno wn) date) submitted: . unknown) (unknown) (no (unknown) (unknown) NPI- [id number] (units (unknown) date) unknown) (unknown) (no (unknown) (unknown) Ordering (units (unkno wn) date) Physician: unknown) Geo Mckeon MD (unknown) (no (unknown) (unknown) Pathologist (units (un known) date) provided ICD-10: unknown) (unknown) (no (unknown) (unknown) Pathology (units (unkn own) date) Diagnostic Report unknown) (unknown) (no (unknown) (unknown) Patient name: (units ( unknown) date) Michael Paulino unknown) (unknown) (no (unknown) (unknown) Received in (units (un known) date) formalin is 1 unknown) fragment(s) of munoz, soft tissue measuring (unknown) (no (unknown) (unknown) Rectum, Biopsy: (units (unknown) date) unknown) (unknown) (no (unknown) (unknown) Signed By: (units (unk nown) date) 05/11/222006 unknown) (unknown) (no (unknown) (unknown) Signed (units (unkno wn) date) unknown) (unknown) (no (unknown) (unknown) Specimen (units (unkno wn) date) Comment: A unknown) courtesy copy of this report has been sent to [phone] (unknown) (no (unknown) (unknown) TD/TT: 05/11/22 (units (unknown) date) 2006 unknown) (unknown) (no (unknown) (unknown) Tubular adenoma. (units (unknown) date) unknown) (unknown) (no (unknown) (unknown) rectum - (units (unkno wn) date) 'RECTUM' unknown) Result panel 17 (unknown) (no (unknown) (unknown) (no value) (units (unk nown) date) unknown) (unknown) (no (unknown) (unknown) [id number] (units (unkn own) date) unknown) (unknown) (no (unknown) (unknown) 05/09/22 1416 (units ( unknown) date) unknown) (unknown) (no (unknown) (unknown) 1. Rectum-5 mm polyp (uni ts (unknown) date) removed with biopsy unknown) forceps (unknown) (no (unknown) (unknown) 2. Normal esophagus (unit s (unknown) date) stomach and duodenum unknown) (unknown) (no (unknown) (unknown) 2. The procedure was (uni ts (unknown) date) discussed in detail unknown) with the patient. Potential risks (unknown) (no (unknown) (unknown) Age/Sex: 52 / M (units (unknown) date) unknown) (unknown) (no (unknown) (unknown) Colonic polyp (units ( unknown) date) unknown) (unknown) (no (unknown) (unknown) : 1970 (units (unknown) date) Acct:[id number] unknown) (unknown) (no (unknown) (unknown) Date of Service: (units (unknown) date) 05/09/22 unknown) (unknown) (no (unknown) (unknown) Date of procedure: (units (unknown) date) 05/09/22 unknown) (unknown) (no (unknown) (unknown) Disposition: same day (un its (unknown) date) surgery unknown) (unknown) (no (unknown) (unknown) EGD + Colonoscopy (units (unknown) date) Note unknown) (unknown) (no (unknown) (unknown) Esophagoduodenoscopy (uni ts (unknown) date) and colonoscopy unknown) (unknown) (no (unknown) (unknown) Examination began (units (unknown) date) with a thorough unknown) inspection of the perianal area there was no (unknown) (no (unknown) (unknown) FINDINGS (units (unkno wn) date) unknown) (unknown) (no (unknown) (unknown) First-degree family (unit s (unknown) date) member with colon unknown) cancer (unknown) (no (unknown) (unknown) GERD (units (unkno wn) date) unknown) (unknown) (no (unknown) (unknown) Impression: (units (un known) date) unknown) (unknown) (no (unknown) (unknown) Indications: (units (u nknown) date) unknown) (unknown) (no (unknown) (unknown) [facility] [address] (uni ts (unknown) date) [address] [place] [address], unknown ) [place] [address] (unknown) (no (unknown) (unknown) Operative (units (unkn own) date) Date/Time/Diagnoses unknown) (unknown) (no (unknown) (unknown) Patient placed in (units (unknown) date) left lateral decubitus unknown ) position. Time out was performed. (unknown) (no (unknown) (unknown) Patient: (units (unkno wn) date) Mcihael Paulino MR#: unknown ) M (unknown) (no (unknown) (unknown) Personal history of (unit s (unknown) date) colonic polyps unknown) (unknown) (no (unknown) (unknown) Post-op diagnosis: (units (unknown) date) same unknown) (unknown) (no (unknown) (unknown) Post-procedure (units (unknown) date) unknown) (unknown) (no (unknown) (unknown) Pre-op diagnosis: (units (unknown) date) Family history of unknown) colon cancer (unknown) (no (unknown) (unknown) Procedure + (units (un known) date) Clinicians unknown) (unknown) (no (unknown) (unknown) Procedure Notes (units (unknown) date) unknown) (unknown) (no (unknown) (unknown) Procedure in detail: (uni ts (unknown) date) unknown) (unknown) (no (unknown) (unknown) Provider: (units (unkn own) date) Geo Mckeon MD unknown) (unknown) (no (unknown) (unknown) Recommendations: (units (unknown) date) Colonscopy in 5 years, unknown ) Reflux diet and High fiber diet (unknown) (no (unknown) (unknown) Same procedure as (units (unknown) date) scheduled: Yes unknown) (unknown) (no (unknown) (unknown) Sedation was (units (u nknown) date) administered by unknown) anesthesia. A bite block was placed. the scope was (unknown) (no (unknown) (unknown) Signed (units (unkno wn) date) By:<Electronically unknown) signed by Geo Mckeon MD> (unknown) (no (unknown) (unknown) Specimen(s): other (units (unknown) date) (Rectal polyp) unknown) (unknown) (no (unknown) (unknown) Study performed: (units (unknown) date) unknown) (unknown) (no (unknown) (unknown) Surgeon: Geo (units (unknown) date) Linda unknown) (unknown) (no (unknown) (unknown) The colonoscopy scope (un its (unknown) date) was then placed into unknown) the anal canal and was advanced to (unknown) (no (unknown) (unknown) The history and (units (unknown) date) physical was unknown) performed/updated and the patient is ASA class is (unknown) (no (unknown) (unknown) The patient tolerated (un its (unknown) date) the procedure well. unknown) They will be discharged once criteria (unknown) (no (unknown) (unknown) The pylorus was (units (unknown) date) intubated and the unknown) duodenum was normal to the 2nd portion. The (unknown) (no (unknown) (unknown) Time of procedure: (units (unknown) date) 13:37 unknown) (unknown) (no (unknown) (unknown) and the confluence of (un its (unknown) date) the taenia. The scope unknown) was then slowly withdrawn examining (unknown) (no (unknown) (unknown) are met. The prep was (un its (unknown) date) of good/excellent unknown) quality. The withdrawl time was 7 (unknown) (no (unknown) (unknown) colon thoroughly in (unit s (unknown) date) all directions, unknown) irrigating it of any residual stool. (unknown) (no (unknown) (unknown) complications (units (u nknown) date) including infection, unknown) bleeding, missed diagnosis, perforation, need (unknown) (no (unknown) (unknown) evidence of fissures, (un its (unknown) date) fistulae, external unknown) hemorrhoids or cutaneous malignancy. (unknown) (no (unknown) (unknown) for surgery, and (units (unknown) date) were explained. unknown) Their questions were answered and (unknown) (no (unknown) (unknown) informed consent was (uni ts (unknown) date) obtained. unknown) (unknown) (no (unknown) (unknown) inserted into the (units (unknown) date) mouth and advanced unknown) through the esophagus and into the stomach. (unknown) (no (unknown) (unknown) minutes. (units (unkno wn) date) unknown) (unknown) (no (unknown) (unknown) or strictures. (units (unknown) date) Stomach was unknown) desufflated and scope removed. Patient tolerated (unknown) (no (unknown) (unknown) procedure well. (units (unknown) date) unknown) (unknown) (no (unknown) (unknown) scope was retroflexed (un its (unknown) date) within the stomach and unknown ) there was no hiatal hernia. No (unknown) (no (unknown) (unknown) seen at 40 cm from (units (unknown) date) the incisions. There unknown) was no Palomares's esophagitis or masses (unknown) (no (unknown) (unknown) the cecum, which was (uni ts (unknown) date) identified by the unknown) ileocecal valve, the appendiceal orifice (unknown) (no (unknown) (unknown) ulcers, or gastritis. (un its (unknown) date) The scope was unknown) withdrawn into the esophagus the Z line was Result panel 18 (unknown) (no (unknown) (unknown) (no value) (units (unk nown) date) unknown) (unknown) (no (unknown) (unknown) [id number] (units (unkn own) date) unknown) (unknown) (no (unknown) (unknown) 06/05/22 (units (unkno wn) date) unknown) (unknown) (no (unknown) (unknown) 03/10/20 (units (unkno wn) date) [History unknown) Confirmed 06/05/22] (unknown) (no (unknown) (unknown) Accompanied by: (units (unknown) date) Self / Same As unknown) Patient (unknown) (no (unknown) (unknown) Acute (units (unkno wn) date) degenerative unknown) joint disease of shoulder region (unknown) (no (unknown) (unknown) Age/Sex: 52 / M (units (unknown) date) Date of Service: unknown) (unknown) (no (unknown) (unknown) Allergies (units (unkn own) date) unknown) (unknown) (no (unknown) (unknown) MINDY Bella (units ( unknown) date) [id number] unknown) (unknown) (no (unknown) (unknown) Attending Dr: (units ( unknown) date) Sonido Monahan unknown) D.O. (unknown) (no (unknown) (unknown) Chronic rupture (units (unknown) date) of ACL of right unknown) knee (unknown) (no (unknown) (unknown) Chronic rupture (units (unknown) date) of PCL of right unknown) knee (unknown) (no (unknown) (unknown) : 1970 (units (unknown) date) Acct:[id number] unknown) (unknown) (no (unknown) (unknown) Dept at (units (unkno wn) date) . unknown) (unknown) (no (unknown) (unknown) Documented By: (units (unknown) date) Sonido Monahan unknown) D.OLima 06/05/22 1113 (unknown) (no (unknown) (unknown) Draft (units (unkno wn) date) unknown) (unknown) (no (unknown) (unknown) Facet (units (unkno wn) date) arthropathy, unknown) lumbar (unknown) (no (unknown) (unknown) Family History (units (unknown) date) (Reviewed unknown) 05/09/22 @ 13:34 by Geo Mckeon MD) (unknown) (no (unknown) (unknown) Father Colon (units (u nknown) date) cancer unknown) (unknown) (no (unknown) (unknown) Grandmother (units (un known) date) Stroke unknown) (unknown) (no (unknown) (unknown) History of (units (unk nown) date) arthroscopy of unknown) knee (unknown) (no (unknown) (unknown) Intake Clinical (units (unknown) date) Staff unknown) (unknown) (no (unknown) (unknown) Intake performed (units (unknown) date) by: Ade Infante unknown) (unknown) (no (unknown) (unknown) Intake (units (unkno wn) date) unknown) (unknown) (no (unknown) (unknown) Lateral (units (unkno wn) date) epicondylitis unknown) (unknown) (no (unknown) (unknown) Loc: [facility] (units (unkn own) date) unknown) (unknown) (no (unknown) (unknown) Medical History (units (unknown) date) (Reviewed unknown) 05/09/22 @ 13:34 by Geo Mckeon MD) (unknown) (no (unknown) (unknown) Medications (units (un known) date) unknown) (unknown) (no (unknown) (unknown) Mother Polyp, (units ( unknown) date) stomach unknown) (unknown) (no (unknown) (unknown) No Known Drug (units ( unknown) date) Allergies Allergy unknown) (Verified 06/05/22 11:13) (unknown) (no (unknown) (unknown) PFSH (units (unkno wn) date) unknown) (unknown) (no (unknown) (unknown) Pain Visit (units (unk nown) date) unknown) (unknown) (no (unknown) (unknown) Patient: (units (unkno wn) date) Michael Paulino unknown) MR#: M (unknown) (no (unknown) (unknown) Reason For Visit (units (unknown) date) unknown) (unknown) (no (unknown) (unknown) Signed By: (units (unk nown) date) unknown) (unknown) (no (unknown) (unknown) Smoking Status: (units (unknown) date) Never smoker unknown) (unknown) (no (unknown) (unknown) Social History (units (unknown) date) unknown) (unknown) (no (unknown) (unknown) Surgical History (units (unknown) date) (Reviewed unknown) 05/09/22 @ 13:34 by Geo Mckeon MD) (unknown) (no (unknown) (unknown) [facility] unknown) (unknown) (no (unknown) (unknown) This note may (units ( unknown) date) have been all or unknown) partially generated using voice recognition (unknown) (no (unknown) (unknown) Tobacco + (units (unkn own) date) Substance Use unknown) (unknown) (no (unknown) (unknown) Tobacco Status (units (unknown) date) unknown) (unknown) (no (unknown) (unknown) Visit Reasons: (units (unknown) date) Follow Up Right unknown) Shoulder Injection, RIGHT SHOULDER PAIN (unknown) (no (unknown) (unknown) acetaminophen (units ( unknown) date) 325 mg tablet unknown) (Tylenol) 650 mg PO Q6H PRN Pain (Scale Score 1-3) (unknown) (no (unknown) (unknown) alcohol intake: (units (unknown) date) current unknown) (unknown) (no (unknown) (unknown) atorvastatin 10 (units (unknown) date) mg tablet 10 mg unknown) PO BEDTIME 04/13/22 [History Confirmed 06/05/22] (unknown) (no (unknown) (unknown) famotidine 20 mg (units (unknown) date) tablet 20 mg PO unknown) BID 06/05/22 [History Confirmed 06/05/22] (unknown) (no (unknown) (unknown) have occurred. (units (unknown) date) If there are any unknown) questions, please contact the Medical Records (unknown) (no (unknown) (unknown) household (units (unkn own) date) members: spouse unknown) (unknown) (no (unknown) (unknown) hyoscyamine (units (un known) date) sulfate 0.125 mg unknown) disintegrating tablet 0.125 mg PO BEDTIME PRN (unknown) (no (unknown) (unknown) may occur. (units (unk nown) date) Occasional unknown) wrong-word or 'sound-alike' substitutions may have (unknown) (no (unknown) (unknown) nausea 06/05/22 (units (unknown) date) [History unknown) Confirmed 06/05/22] (unknown) (no (unknown) (unknown) occurred due to (units (unknown) date) the inherent unknown) limitations of voice recognition software. Please (unknown) (no (unknown) (unknown) read the note (units ( unknown) date) carefully and unknown) recognize, using context, where these substitutions (unknown) (no (unknown) (unknown) software. (units (unkn own) date) Although every unknown) effort is made to edit content, digital advertising analyst errors Result panel 19 (unknown) (no (unknown) (unknown) (no value) (units (unk nown) date) unknown) (unknown) (no (unknown) (unknown) [id number] (units (unkn own) date) unknown) (unknown) (no (unknown) (unknown) 06/05/22 (units (unkno wn) date) unknown) (unknown) (no (unknown) (unknown) 03/10/20 (units (unkno wn) date) [History unknown) Confirmed 06/05/22] (unknown) (no (unknown) (unknown) 11:26 (units (unkno wn) date) unknown) (unknown) (no (unknown) (unknown) Accompanied by: (units (unknown) date) Self / Same As unknown) Patient (unknown) (no (unknown) (unknown) Acute (units (unkno wn) date) degenerative unknown) joint disease of shoulder region (unknown) (no (unknown) (unknown) Age/Sex: 52 / M (units (unknown) date) Date of Service: unknown) (unknown) (no (unknown) (unknown) Allergies (units (unkn own) date) unknown) (unknown) (no (unknown) (unknown) [place], [place] (units ( unknown) date) [id number] unknown) (unknown) (no (unknown) (unknown) Attending Dr: (units ( unknown) date) Sonido Monahan unknown) D.O. 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 unknown) (unknown) (no (unknown) (unknown) Documented By: (units (unknown) date) Sonido Monahan unknown) D.O. 06/05/22 1113 (unknown) (no (unknown) (unknown) Draft (units (unkno wn) date) unknown) (unknown) (no (unknown) (unknown) Facet (units (unkno wn) date) arthropathy, unknown) lumbar (unknown) (no (unknown) (unknown) Family History (units (unknown) date) (Reviewed unknown) 05/09/22 @ 13:34 by Geo Mckeon MD) (unknown) (no (unknown) (unknown) Father Colon (units (u nknown) date) cancer unknown) (unknown) (no (unknown) (unknown) Grandmother (units (un known) date) Stroke unknown) (unknown) (no (unknown) (unknown) Height 5 ft 11 (units (unknown) date) in unknown) (unknown) (no (unknown) (unknown) History of (units (unk nown) date) arthroscopy of unknown) knee (unknown) (no (unknown) (unknown) Intake Clinical (units (unknown) date) Staff unknown) (unknown) (no (unknown) (unknown) Intake Note: (units (u nknown) date) unknown) (unknown) (no (unknown) (unknown) Intake performed (units (unknown) date) by: Ade Infante unknown) (unknown) (no (unknown) (unknown) Intake (units (unkno wn) date) unknown) (unknown) (no (unknown) (unknown) Is patient in (units ( unknown) date) pain?: No (Since unknown) the injection his pain is gone) (unknown) (no (unknown) (unknown) Lateral (units (unkno wn) date) epicondylitis unknown) (unknown) (no (unknown) (unknown) Loc: PAIN (units (unkn own) date) unknown) (unknown) (no (unknown) (unknown) Medical History (units (unknown) date) (Reviewed unknown) 05/09/22 @ 13:34 by Geo Mckeon MD) (unknown) (no (unknown) (unknown) Medications (units (un known) date) unknown) (unknown) (no (unknown) (unknown) Mother Polyp, (units ( unknown) date) stomach unknown) (unknown) (no (unknown) (unknown) No Known Drug (units ( unknown) date) Allergies Allergy unknown) (Verified 06/05/22 11:13) (unknown) (no (unknown) (unknown) Oxygen Delivery (units (unknown) date) Method room air unknown) (unknown) (no (unknown) (unknown) PFSH (units (unkno wn) date) unknown) (unknown) (no (unknown) (unknown) Pain Scale (units (unk nown) date) unknown) (unknown) (no (unknown) (unknown) Pain Visit (units (unk nown) date) unknown) (unknown) (no (unknown) (unknown) Patient: (units (unkno wn) date) Michael Paulino unknown) MR#: M (unknown) (no (unknown) (unknown) Position Sitting (units (unknown) date) unknown) (unknown) (no (unknown) (unknown) Pulse 72 (units (unkno wn) date) unknown) (unknown) (no (unknown) (unknown) Pulse Oximetry (units (unknown) date) (%) 99 unknown) (unknown) (no (unknown) (unknown) Pulse Source (units (u nknown) date) Monitor unknown) (unknown) (no (unknown) (unknown) Reason For Visit (units (unknown) date) unknown) (unknown) (no (unknown) (unknown) Signed By: (units (unk nown) date) unknown) (unknown) (no (unknown) (unknown) Smoking Status: (units (unknown) date) Never smoker unknown) (unknown) (no (unknown) (unknown) Social History (units (unknown) date) unknown) (unknown) (no (unknown) (unknown) Surgical History (units (unknown) date) (Reviewed unknown) 05/09/22 @ 13:34 by Geo Mckeon MD) (unknown) (no (unknown) (unknown) Temp 98.7 F (units (un known) date) unknown) (unknown) (no (unknown) (unknown) Temp Source (units (un known) date) Temporal Artery unknown) Scan (unknown) (no (unknown) (unknown) [facility] unknown) (unknown) (no (unknown) (unknown) This note may (units ( unknown) date) have been all or unknown) partially generated using voice recognition (unknown) (no (unknown) (unknown) Tobacco + (units (unkn own) date) Substance Use unknown) (unknown) (no (unknown) (unknown) Tobacco Status (units (unknown) date) unknown) (unknown) (no (unknown) (unknown) Visit Reasons: (units (unknown) date) Follow Up Right unknown) Shoulder Injection, RIGHT SHOULDER PAIN (unknown) (no (unknown) (unknown) Vitals (units (unkno wn) date) unknown) (unknown) (no (unknown) (unknown) Weight 189 lb (units ( unknown) date) unknown) (unknown) (no (unknown) (unknown) acetaminophen (units ( unknown) date) 325 mg tablet unknown) (Tylenol) 650 mg PO Q6H PRN Pain (Scale Score 1-3) (unknown) (no (unknown) (unknown) alcohol intake: (units (unknown) date) current unknown) (unknown) (no (unknown) (unknown) atorvastatin 10 (units (unknown) date) mg tablet 10 mg unknown) PO BEDTIME 04/13/22 [History Confirmed 06/05/22] (unknown) (no (unknown) (unknown) famotidine 20 mg (units (unknown) date) tablet 20 mg PO unknown) BID 06/05/22 [History Confirmed 06/05/22] (unknown) (no (unknown) (unknown) have occurred. (units (unknown) date) If there are any unknown) questions, please contact the Medical Records (unknown) (no (unknown) (unknown) here for right (units (unknown) date) shoulder pain unknown) (unknown) (no (unknown) (unknown) household (units (unkn own) date) members: spouse unknown) (unknown) (no (unknown) (unknown) hyoscyamine (units (un known) date) sulfate 0.125 mg unknown) disintegrating tablet 0.125 mg PO BEDTIME PRN (unknown) (no (unknown) (unknown) may occur. (units (unk nown) date) Occasional unknown) wrong-word or 'sound-alike' substitutions may have (unknown) (no (unknown) (unknown) nausea 06/05/22 (units (unknown) date) [History unknown) Confirmed 06/05/22] (unknown) (no (unknown) (unknown) occurred due to (units (unknown) date) the inherent unknown) limitations of voice recognition software. Please (unknown) (no (unknown) (unknown) read the note (units ( unknown) date) carefully and unknown) recognize, using context, where these substitutions (unknown) (no (unknown) (unknown) software. (units (unkn own) date) Although every unknown) effort is made to edit content, digital advertising analyst errors Result panel 20 (unknown) (no (unknown) (unknown) (no value) (units (unk nown) date) unknown) (unknown) (no (unknown) (unknown) (1) Herniated (units ( unknown) date) nucleus pulposus, unknown) thoracic: (unknown) (no (unknown) (unknown) (2) Facet (units (unkn own) date) arthropathy, unknown) thoracic: (unknown) (no (unknown) (unknown) (3) Lumbar (units (unk nown) date) degenerative disc unknown) disease: (unknown) (no (unknown) (unknown) (4) Facet (units (unkn own) date) arthropathy, lumbar: unknown) (unknown) (no (unknown) (unknown) (5) Acute (units (unkn own) date) degenerative joint unknown) disease of shoulder region: (unknown) (no (unknown) (unknown) (6) Lateral (units (un known) date) epicondylitis: unknown) (unknown) (no (unknown) (unknown) [id number] (units (unkn own) date) unknown) (unknown) (no (unknown) (unknown) 06/05/22 (units (unkno wn) date) unknown) (unknown) (no (unknown) (unknown) 1. Diffuse disc (units (unknown) date) bulge and unknown) superimposed disc herniation with bilateral facet (unknown) (no (unknown) (unknown) 03/10/20 [History (units (unknown) date) Confirmed 06/05/22] unknown) (unknown) (no (unknown) (unknown) 11:26 (units (unkno wn) date) unknown) (unknown) (no (unknown) (unknown) 16 study. (units (unkn own) date) unknown) (unknown) (no (unknown) (unknown) 2. Mild degenerative (unit s (unknown) date) disc bulge at L1-2 unknown) through L3-4 levels causing mild central (unknown) (no (unknown) (unknown) 3. Stable minimal (units (unknown) date) retrolisthesis of L4 unknown) on L5. No compression fracture. No marrow (unknown) (no (unknown) (unknown) 11/11/2019 (units (unkn own) date) unknown) (unknown) (no (unknown) (unknown) 11/15/2016, (units (unk nown) date) unknown) (unknown) (no (unknown) (unknown) 9:14. (units (unkno wn) date) unknown) (unknown) (no (unknown) (unknown) ? (units (unkno wn) date) unknown) (unknown) (no (unknown) (unknown) Accompanied by: (units (unknown) date) Self / Same As unknown) Patient (unknown) (no (unknown) (unknown) 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 (unknown) (no (unknown) (unknown) Age/Sex: 52 / M (units (unknown) date) Date of Service: unknown) (unknown) (no (unknown) (unknown) Alignment and (units ( unknown) date) Curvature: There is unknown) straightening of normal lumbar lordosis. (unknown) (no (unknown) (unknown) All other systems (units (unknown) date) reviewed and are unknown) unremarkable except as noted in HPI. (unknown) (no (unknown) (unknown) Allergies (units (unkn own) date) unknown) (unknown) (no (unknown) (unknown) [place] [address] (unit s (unknown) date) unknown) (unknown) (no (unknown) (unknown) Approved by: Daniel (units (unknown) date) Andrew Cooley M.D. on unknown) 10/18/2020 at 16:28 (unknown) (no (unknown) (unknown) Approved by: Daniel (units (unknown) date) Andrew Cooley M.D. on unknown) 10/18/2020 at 16:30 05/02/2018 lumbar spine (unknown) (no (unknown) (unknown) Approved by: Edgar Gonzalesunits (unknown) dateVickie Chen M.D. on unknown) 05/03/2018 at 8:55 (unknown) (no (unknown) (unknown) Approved by: Romy (units (unknown) date) Doc Jacobo on unknown) 04/13/2022 at 16:37 (unknown) (no (unknown) (unknown) Approved by: Romy (units (unknown) date) Doc Jacobo on unknown) 04/13/2022 at 16:39? (unknown) (no (unknown) (unknown) Assessment + Plan (units (unknown) date) unknown) (unknown) (no (unknown) (unknown) Attending Dr: (units ( unknown) date) Sonido Monahan D.O. unknown) (unknown) (no (unknown) (unknown) BMI 26.3 (units (unkno wn) date) unknown) (unknown) (no (unknown) (unknown) BP 128/70 (units (unkn own) date) unknown) (unknown) (no (unknown) (unknown) Blood Pressure (units (unknown) date) Location Lt brachial unknown) (unknown) (no (unknown) (unknown) Bones: No acute (units (unknown) date) fracture identified. unknown) There is dextrocurvature of the (unknown) (no (unknown) (unknown) Bones: No acute (units (unknown) date) fracture. Multilevel unknown) degenerative endplate sclerosis and (unknown) (no (unknown) (unknown) Bones: No fractures (units (unknown) date) or dislocations. No unknown) suspicious bony lesions. Visualized ribs (unknown) (no (unknown) (unknown) Bones:? No (units (unk nown) date) fractures or unknown) dislocations to the C7 level.? There is trace (unknown) (no (unknown) (unknown) Bulging disc likely (unit s (unknown) date) contacting right L5 unknown) and S1 nerve roots. (unknown) (no (unknown) (unknown) C3-4 and C4-5.? (units (unknown) date) Intervertebral disc unknown) space narrowing and osteophytosis is present (unknown) (no (unknown) (unknown) COMPARISON: None. (units (unknown) date) unknown) (unknown) (no (unknown) (unknown) COMPARISON: [facility] (units (unknown) date) [facility] unknown) [place], [place], SPINE LUMB MIN 4VW, (unknown) (no (unknown) (unknown) COMPARISON:? None. (units (unknown) date) unknown) (unknown) (no (unknown) (unknown) Chief Complaint (units (unknown) date) unknown) (unknown) (no (unknown) (unknown) Chief Complaint: (units (unknown) date) Follow-up right unknown) shoulder AC joint injection 04/13/2022 (unknown) (no (unknown) (unknown) 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 unknown) (unknown) (no (unknown) (unknown) 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 unknown) (unknown) (no (unknown) (unknown) Chronic soft (units (u nknown) date) unknown) (unknown) (no (unknown) (unknown) : 1970 (units (unknown) date) Acct:[id number] unknown) (unknown) (no (unknown) (unknown) DTR's symmetric. (units (unknown) date) unknown) (unknown) (no (unknown) (unknown) Denies recent (units ( unknown) date) trauma, fever or unknown) weight loss of unknown origin, immunocompromise (unknown) (no (unknown) (unknown) Dept at (units (unkno wn) date) . unknown) (unknown) (no (unknown) (unknown) Dextrocurvature (units (unknown) date) unknown) (unknown) (no (unknown) (unknown) Dictated by: Daniel (units (unknown) date) Andrew Cooley M.D. on unknown) 10/18/2020 at 16:27 (unknown) (no (unknown) (unknown) Dictated by: Daniel (units (unknown) date) Andrew Cooley M.D. on unknown) 10/18/2020 at 16:28 (unknown) (no (unknown) (unknown) Dictated by: Edgar (units (unknown) date) Doc Chen on unknown) 05/03/2018 at 8:20 (unknown) (no (unknown) (unknown) Dictated by: Romy (units (unknown) date) Doc Jacobo on unknown) 04/13/2022 at 16:37 (unknown) (no (unknown) (unknown) Dictated by: Romy (units (unknown) date) Doc Jacobo on unknown) 04/13/2022 at 16:38 ? ? 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 unknown) Moderate narrowing of the L4-L5 disc space. Mild (unknown) (no (unknown) (unknown) Diffuse facet (units ( unknown) date) unknown) (unknown) (no (unknown) (unknown) Diffuse lumbar (units (unknown) date) spondylosis and unknown) moderate L4-L5 disc degeneration, with slight (unknown) (no (unknown) (unknown) Diffuse spondylitic (unit s (unknown) date) changes. unknown) (unknown) (no (unknown) (unknown) Documented By: (units (unknown) date) Sonido Monahan D.O. unknown) 06/05/22 1113 (unknown) (no (unknown) (unknown) Draft (units (unkno wn) date) unknown) (unknown) (no (unknown) (unknown) Endorses thoracic (units (unknown) date) HNP, lumbar sacral unknown) HNP, lumbosacral spondylosis, (unknown) (no (unknown) (unknown) Exam Narrative (units (unknown) date) unknown) (unknown) (no (unknown) (unknown) Exam Narrative: (units (unknown) date) unknown) (unknown) (no (unknown) (unknown) Exam (units (unkno wn) date) unknown) (unknown) (no (unknown) (unknown) FINDINGS: (units (unkn own) date) unknown) (unknown) (no (unknown) (unknown) FINDINGS:? (units (unk nown) date) unknown) (unknown) (no (unknown) (unknown) Facet arthropathy, (units (unknown) date) lumbar unknown) (unknown) (no (unknown) (unknown) Family History (units (unknown) date) (Reviewed 06/05/22 @ unknown) 11:46 by Sonido Monahan DO) (unknown) (no (unknown) (unknown) Father Colon cancer (unit s (unknown) date) unknown) (unknown) (no (unknown) (unknown) Gait: Full (units (unk nown) date) weightbearing. No unknown) assistive device. Stooped Gait Posture due to (unknown) (no (unknown) (unknown) General: The (units (u nknown) date) patient is in no unknown) obvious distress. Normal affect. Fully (unknown) (no (unknown) (unknown) Grandmother (units (un known) date) Stroke unknown) (unknown) (no (unknown) (unknown) HPI (units (unkno wn) date) unknown) (unknown) (no (unknown) (unknown) Height 5 ft 11 in (units (unknown) date) unknown) (unknown) (no (unknown) (unknown) History of (units (unk nown) date) arthroscopy of knee unknown) (unknown) (no (unknown) (unknown) IMPRESSION: No (units (unknown) date) acute radiographic unknown) findings. (unknown) (no (unknown) (unknown) IMPRESSION: (units (un known) date) unknown) (unknown) (no (unknown) (unknown) IMPRESSION:? (units (u nknown) date) Degenerative change unknown) and foraminal stenosis as above. (unknown) (no (unknown) (unknown) INDICATIONS: PAIN (units (unknown) date) unknown) (unknown) (no (unknown) (unknown) INDICATIONS: RIGHT (units (unknown) date) SHOULDER PAIN unknown) (unknown) (no (unknown) (unknown) INDICATIONS:? NECK (units (unknown) date) PAIN unknown) (unknown) (no (unknown) (unknown) Imaging was (units (unk nown) date) personally reviewed unknown) and findings correlate with radiology reports as (unknown) (no (unknown) (unknown) Intake Clinical (units (unknown) date) Staff unknown) (unknown) (no (unknown) (unknown) Intake Note: (units (u nknown) date) unknown) (unknown) (no (unknown) (unknown) Intake performed (units (unknown) date) by: Ade Infante unknown) (unknown) (no (unknown) (unknown) Intake (units (unkno wn) date) unknown) (unknown) (no (unknown) (unknown) Is patient in (units ( unknown) date) pain?: No (Since the unknown) injection his pain is gone) (unknown) (no (unknown) (unknown) L4-5 and L5-S1 (units (unknown) date) levels causing unknown) moderate central canal stenosis and moderate to (unknown) (no (unknown) (unknown) L4-L5: Again noted (units (unknown) date) is diffuse disc unknown) bulge and superimposed broad-based central (unknown) (no (unknown) (unknown) L4. (units (unkno wn) date) unknown) (unknown) (no (unknown) (unknown) L5-S1: Diffuse disc (units (unknown) date) bulge and unknown) superimposed right lateral disc protrusion is seen (unknown) (no (unknown) (unknown) Lateral (units (unkno wn) date) epicondylitis unknown) (unknown) (no (unknown) (unknown) Laterality: right (units (unknown) date) Qualified Code(s): unknown) M77.11 - Lateral epicondylitis, (unknown) (no (unknown) (unknown) Left Lower (units (unk nown) date) Extremity: No edema, unknown) joint effusion or atrophy. tenderness over the (unknown) (no (unknown) (unknown) Left Upper (units (unk nown) date) Extremity: Left unknown) upper extremity exam shows grossly normal alignment, (unknown) (no (unknown) (unknown) Loc: PAIN (units (unkn own) date) unknown) (unknown) (no (unknown) (unknown) Lower cervical (units (unknown) date) spondylosis also unknown) noted. (unknown) (no (unknown) (unknown) MRI results: (units (u nknown) date) unknown) (unknown) (no (unknown) (unknown) MSK: System (units (un known) date) reviewed and no unknown) additional complaints, except as documented. (unknown) (no (unknown) (unknown) Medical History (units (unknown) date) (Reviewed 06/05/22 @ unknown) 11:46 by Sonido Monahan DO) (unknown) (no (unknown) (unknown) Medications (units (un known) date) unknown) (unknown) (no (unknown) (unknown) Minimal (units (unkno wn) date) unknown) (unknown) (no (unknown) (unknown) Moderate to severe (units (unknown) date) central canal unknown) stenosis and bilateral neural foramina (unknown) (no (unknown) (unknown) Moderate to severe (units (unknown) date) foraminal stenosis unknown) is present on the right at C4-5 and (unknown) (no (unknown) (unknown) Mother Polyp, (units ( unknown) date) stomach unknown) (unknown) (no (unknown) (unknown) Neuro: System (units ( unknown) date) reviewed and no unknown) additional complaints, except as documented. (unknown) (no (unknown) (unknown) Neurologic: (units (un known) date) Sensation is grossly unknown) intact to light touch throughout the upper and (unknown) (no (unknown) (unknown) No Known Drug (units ( unknown) date) Allergies Allergy unknown) (Verified 06/05/22 11:13) (unknown) (no (unknown) (unknown) No fever, chills, (units (unknown) date) signs of infection, unknown) weakness after right L4, L5, S1 MB RFA (unknown) (no (unknown) (unknown) Objective Data (units (unknown) date) unknown) (unknown) (no (unknown) (unknown) Objective Data: (units (unknown) date) unknown) (unknown) (no (unknown) (unknown) Oblique images: No (units (unknown) date) pars defects. unknown) (unknown) (no (unknown) (unknown) Ordering Provider: (units (unknown) date) Sonido Monahan D.O. unknown) (unknown) (no (unknown) (unknown) Oxygen Delivery (units (unknown) date) Method room air unknown) (unknown) (no (unknown) (unknown) PFSH (units (unkno wn) date) unknown) (unknown) (no (unknown) (unknown) PROCEDURE: XR (units ( unknown) date) LUMBAR SPINE MIN 4V unknown) (unknown) (no (unknown) (unknown) PROCEDURE: XR (units ( unknown) date) SHOULDER RT MIN 2V unknown) (unknown) (no (unknown) (unknown) PROCEDURE: XR (units ( unknown) date) THORACIC SPINE 3V unknown) (unknown) (no (unknown) (unknown) PROCEDURE:? XR (units (unknown) date) CERVICAL SPINE 4V OR unknown) 5V (unknown) (no (unknown) (unknown) Pain Scale (units (unk nown) date) unknown) (unknown) (no (unknown) (unknown) Pain Visit (units (unk nown) date) unknown) (unknown) (no (unknown) (unknown) Patient: (units (unkno wn) date) Michael Paulino G unknown) MR#: M (unknown) (no (unknown) (unknown) Position Sitting (units (unknown) date) unknown) (unknown) (no (unknown) (unknown) Procedure: XR (units ( unknown) date) lumbar spine min 4V unknown) (unknown) (no (unknown) (unknown) Pulse 72 (units (unkno wn) date) unknown) (unknown) (no (unknown) (unknown) Pulse Oximetry (%) (units (unknown) date) 99 unknown) (unknown) (no (unknown) (unknown) Pulse Source (units (u nknown) date) Monitor unknown) (unknown) (no (unknown) (unknown) Qualifiers: (units (un known) date) unknown) (unknown) (no (unknown) (unknown) ROS Narrative (units ( unknown) date) unknown) (unknown) (no (unknown) (unknown) ROS Narrative: (units (unknown) date) unknown) (unknown) (no (unknown) (unknown) ROS (units (unkno wn) date) unknown) (unknown) (no (unknown) (unknown) Reason For Visit (units (unknown) date) unknown) (unknown) (no (unknown) (unknown) Right Lower (units (un known) date) Extremity: No edema, unknown) effusion or atrophy. tenderness over the (unknown) (no (unknown) (unknown) Right Upper (units (un known) date) Extremity: Right unknown) upper extremity exam shows grossly normal (unknown) (no (unknown) (unknown) Signed By: (units (unk nown) date) unknown) (unknown) (no (unknown) (unknown) Skin: No (units (unkno wn) date) significant skin unknown) lesions are noted. (unknown) (no (unknown) (unknown) Smoking Status: (units (unknown) date) Never smoker unknown) (unknown) (no (unknown) (unknown) Social History (units (unknown) date) unknown) (unknown) (no (unknown) (unknown) Soft tissues: No (units (unknown) date) paravertebral stripe unknown) thickening. (unknown) (no (unknown) (unknown) Soft tissues: No (units (unknown) date) suspicious soft unknown) tissue calcifications. (unknown) (no (unknown) (unknown) Soft tissues: (units ( unknown) date) Overlying bowel gas unknown) pattern is normal. No suspicious soft tissue (unknown) (no (unknown) (unknown) Soft tissues:? No (units (unknown) date) prevertebral soft unknown) tissue swelling.? (unknown) (no (unknown) (unknown) Spine: Cervical (units (unknown) date) spine ROM unknown) functional. Lumbar spine ROM was reduced in all (unknown) (no (unknown) (unknown) Status: Acute (units ( unknown) date) unknown) (unknown) (no (unknown) (unknown) Status: Chronic (units (unknown) date) unknown) (unknown) (no (unknown) (unknown) Surgical History (units (unknown) date) (Reviewed 06/05/22 @ unknown) 11:46 by Sonido Monahan DO) (unknown) (no (unknown) (unknown) TECHNIQUE: 3 views (units (unknown) date) of the shoulder were unknown) acquired. (unknown) (no (unknown) (unknown) TECHNIQUE: 3 views (units (unknown) date) of the thoracic unknown) spine were acquired. (unknown) (no (unknown) (unknown) TECHNIQUE: 5 views (units (unknown) date) of the lumbar spine unknown) were acquired, including bilateral (unknown) (no (unknown) (unknown) TECHNIQUE:? 5 views (unit s (unknown) date) of the cervical unknown) spine acquired.? (unknown) (no (unknown) (unknown) Temp 98.7 F (units (un known) date) unknown) (unknown) (no (unknown) (unknown) Temp Source (units (un known) date) Temporal Artery Scan unknown) (unknown) (no (unknown) (unknown) [facility] (unit s (unknown) date) Management unknown) (unknown) (no (unknown) (unknown) This note may have (units (unknown) date) been all or unknown) partially generated using voice recognition (unknown) (no (unknown) (unknown) Tobacco + Substance (unit s (unknown) date) Use unknown) (unknown) (no (unknown) (unknown) Tobacco Status (units (unknown) date) unknown) (unknown) (no (unknown) (unknown) Visit Reasons: (units (unknown) date) Follow Up Right unknown) Shoulder Injection, RIGHT SHOULDER PAIN (unknown) (no (unknown) (unknown) Vitals (units (unkno wn) date) unknown) (unknown) (no (unknown) (unknown) Weight 189 lb (units ( unknown) date) unknown) (unknown) (no (unknown) (unknown) acetaminophen 325 (units (unknown) date) mg tablet (Tylenol) unknown) 650 mg PO Q6H PRN Pain (Scale Score 1-3) (unknown) (no (unknown) (unknown) alcohol intake: (units (unknown) date) current unknown) (unknown) (no (unknown) (unknown) alignment, range of (unit s (unknown) date) motion, strength and unknown) stability with no swelling, atrophy or (unknown) (no (unknown) (unknown) and C5-6.? Moderate (unit s (unknown) date) stenosis is present unknown) on the left at C6-7. (unknown) (no (unknown) (unknown) appear (units (unkno wn) date) unknown) (unknown) (no (unknown) (unknown) arthropathy. Lower (units (unknown) date) cervical spondylosis unknown) and facet arthropathy also noted. (unknown) (no (unknown) (unknown) arthrosis at (units (u nknown) date) unknown) (unknown) (no (unknown) (unknown) at C4-5 (units (unkno wn) date) unknown) (unknown) (no (unknown) (unknown) atorvastatin 10 mg (units (unknown) date) tablet 10 mg PO unknown) BEDTIME 04/13/22 [History Confirmed 06/05/22] (unknown) (no (unknown) (unknown) axial LBP (units (unkn own) date) unknown) (unknown) (no (unknown) (unknown) bilateral fibrosis (units (unknown) date) and hypertrophy of unknown) ligamentum flavum. Mild central canal (unknown) (no (unknown) (unknown) bilateral (units (unkn own) date) neuroforaminal unknown) narrowing as described in detail above, progressed (unknown) (no (unknown) (unknown) calcifications. (units (unknown) date) unknown) (unknown) (no (unknown) (unknown) canal (units (unkno wn) date) unknown) (unknown) (no (unknown) (unknown) disc (units (unkno wn) date) unknown) (unknown) (no (unknown) (unknown) edema. (units (unkno wn) date) unknown) (unknown) (no (unknown) (unknown) effusion. (units (unkn own) date) unknown) (unknown) (no (unknown) (unknown) famotidine 20 mg (units (unknown) date) tablet 20 mg PO BID unknown) 06/05/22 [History Confirmed 06/05/22] (unknown) (no (unknown) (unknown) greater (units (unkno wn) date) trochanteric region unknown) (unknown) (no (unknown) (unknown) greater (units (unkno wn) date) trochanteric region. unknown) (unknown) (no (unknown) (unknown) have occurred. If (units (unknown) date) there are any unknown) questions, please contact the Medical Records (unknown) (no (unknown) (unknown) here for right (units (unknown) date) shoulder pain unknown) (unknown) (no (unknown) (unknown) household members: (units (unknown) date) spouse unknown) (unknown) (no (unknown) (unknown) hyoscyamine sulfate (unit s (unknown) date) 0.125 mg unknown) disintegrating tablet 0.125 mg PO BEDTIME PRN (unknown) (no (unknown) (unknown) increased tenderness (unit s (unknown) date) with axial loading unknown) and extension based maneuvers tenderness (unknown) (no (unknown) (unknown) intact. (units (unkno wn) date) unknown) (unknown) (no (unknown) (unknown) intravenous drug (units (unknown) date) use, sustained unknown) glucocorticoid use, osteoporosis, or a focal (unknown) (no (unknown) (unknown) left-sided neural (units (unknown) date) foramina narrowing unknown) is seen, also progressed since previous (unknown) (no (unknown) (unknown) listed below. (units ( unknown) date) unknown) (unknown) (no (unknown) (unknown) lower extremities. (units (unknown) date) motor 5/5 all LE unknown) muscle groups. Coordination appears normal. (unknown) (no (unknown) (unknown) may occur. (units (unk nown) date) Occasional unknown) wrong-word or 'sound-alike' substitutions may have (unknown) (no (unknown) (unknown) moderate (units (unkno wn) date) unknown) (unknown) (no (unknown) (unknown) narrowing is (units (u nknown) date) unknown) (unknown) (no (unknown) (unknown) narrowing (units (unkn own) date) unknown) (unknown) (no (unknown) (unknown) nausea 06/05/22 (units (unknown) date) [History Confirmed unknown) 06/05/22] (unknown) (no (unknown) (unknown) neurological (units (u nknown) date) deficit with unknown) progressive or disabling symptoms. (unknown) (no (unknown) (unknown) noted at this level (unit s (unknown) date) progressed since unknown) 2016 study. Finding is slightly worse on (unknown) (no (unknown) (unknown) noted. Moderate to (units (unknown) date) severe right-sided unknown) neuroforaminal narrowing and mild to (unknown) (no (unknown) (unknown) oblique views. (units (unknown) date) unknown) (unknown) (no (unknown) (unknown) occurred due to the (unit s (unknown) date) inherent limitations unknown) of voice recognition software. Please (unknown) (no (unknown) (unknown) of the remaining (units (unknown) date) lumbar disc spaces. unknown) Trace retrolisthesis of L2 on L3 and L3 on (unknown) (no (unknown) (unknown) or (units (unkno wn) date) immunosuppressive unknown) therapy, previous or current cancer diagnosis, history of (unknown) (no (unknown) (unknown) oriented. (units (unkn own) date) unknown) (unknown) (no (unknown) (unknown) planes. On (units (unk nown) date) palpation, there is unknown) tenderness over the spinous processes. With (unknown) (no (unknown) (unknown) progression (units (un known) date) unknown) (unknown) (no (unknown) (unknown) protrusion. (units (un known) date) Bilateral facet unknown) arthrosis and hypertrophy of ligamentum flavum is (unknown) (no (unknown) (unknown) provocative (units (unk nown) date) maneuvers including unknown) sacra shear test as well as pelvic obliquity are (unknown) (no (unknown) (unknown) range of motion, (units (unknown) date) strength and unknown) stability with no swelling, atrophy or effusion. (unknown) (no (unknown) (unknown) read the note (units ( unknown) date) carefully and unknown) recognize, using context, where these substitutions (unknown) (no (unknown) (unknown) retrolisthesis at (units (unknown) date) unknown) (unknown) (no (unknown) (unknown) retrolisthesis of (units (unknown) date) L4 and L5 is again unknown) seen, unchanged from previous study. (unknown) (no (unknown) (unknown) right elbow (units (un known) date) unknown) (unknown) (no (unknown) (unknown) seen. (units (unkno wn) date) unknown) (unknown) (no (unknown) (unknown) severe (units (unkno wn) date) unknown) (unknown) (no (unknown) (unknown) side with bulging (units (unknown) date) disc likely unknown) contacting bilateral L4 and L5 nerve roots. (unknown) (no (unknown) (unknown) since 1999 at (units ( unknown) date) unknown) (unknown) (no (unknown) (unknown) since 11/15/16. (units (unknown) date) unknown) (unknown) (no (unknown) (unknown) software. 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 (units (unkn own) date) unknown) (unknown) (no (unknown) (unknown) stenosis is present (unit s (unknown) date) at C5-6.? Severe unknown) foraminal stenosis is present on the left (unknown) (no (unknown) (unknown) stenosis is (units (un known) date) unknown) (unknown) (no (unknown) (unknown) stenosis, not (units ( unknown) date) significantly unknown) changed from previous study. (unknown) (no (unknown) (unknown) study. (units (unkno wn) date) unknown) (unknown) (no (unknown) (unknown) the mid cervical (units (unknown) date) spine. unknown) (unknown) (no (unknown) (unknown) the right (units (unkn own) date) unknown) (unknown) (no (unknown) (unknown) thoracic spine. (units (unknown) date) Multilevel unknown) degenerative endplate sclerosis and spurring. (unknown) (no (unknown) (unknown) tissue (units (unkno wn) date) calcification unknown) projects at the base of the posterior cervical spine. (unknown) (no (unknown) (unknown) to palpation on (units (unknown) date) paraspinals.straight unknown) leg raising negative bilaterally. Sacral (unknown) (no (unknown) (unknown) visualized (units (unk nown) date) unknown) (unknown) (no (unknown) (unknown) with (units (unkno wn) date) unknown) (unknown) (no (unknown) (unknown) within normal (units ( unknown) date) limits. unknown) (unknown) (no (unknown) (unknown) within (units (unkno wn) date) unknown) Result panel 21 (unknown) (no (unknown) (unknown) (no value) (units (unk nown) date) unknown) (unknown) (no (unknown) (unknown) (1) Herniated (units ( unknown) date) nucleus pulposus, unknown) thoracic: (unknown) (no (unknown) (unknown) (2) Facet (units (unkn own) date) arthropathy, unknown) thoracic: (unknown) (no (unknown) (unknown) (3) Lumbar (units (unk nown) date) degenerative disc unknown) disease: (unknown) (no (unknown) (unknown) (4) Facet (units (unkn own) date) arthropathy, lumbar: unknown) (unknown) (no (unknown) (unknown) (5) Acute (units (unkn own) date) degenerative joint unknown) disease of shoulder region: (unknown) (no (unknown) (unknown) (6) Lateral (units (un known) date) epicondylitis: unknown) (unknown) (no (unknown) (unknown) [id number] (units (unkn own) date) unknown) (unknown) (no (unknown) (unknown) 06/05/22 1155 (units ( unknown) date) unknown) (unknown) (no (unknown) (unknown) 06/05/22 (units (unkno wn) date) unknown) (unknown) (no (unknown) (unknown) 1. Diffuse disc (units (unknown) date) bulge and unknown) superimposed disc herniation with bilateral facet (unknown) (no (unknown) (unknown) 03/10/20 [History (units (unknown) date) Confirmed 06/05/22] unknown) (unknown) (no (unknown) (unknown) 11:26 (units (unkno wn) date) unknown) (unknown) (no (unknown) (unknown) 04/13/2022. He (units (unknown) date) reports no unknown) difficulty with the procedure of does report (unknown) (no (unknown) (unknown) 16 study. (units (unkn own) date) unknown) (unknown) (no (unknown) (unknown) 2. Mild degenerative (unit s (unknown) date) disc bulge at L1-2 unknown) through L3-4 levels causing mild central (unknown) (no (unknown) (unknown) 3. Stable minimal (units (unknown) date) retrolisthesis of L4 unknown) on L5. No compression fracture. No marrow (unknown) (no (unknown) (unknown) 11/11/2019 (units (unkn own) date) unknown) (unknown) (no (unknown) (unknown) 11/15/2016, (units (unk nown) date) unknown) (unknown) (no (unknown) (unknown) 9:14. (units (unkno wn) date) unknown) (unknown) (no (unknown) (unknown) ? (units (unkno wn) date) unknown) (unknown) (no (unknown) (unknown) AC joint. (units (unkn own) date) Additionally do unknown) believe the Voltaren gel would be beneficial (unknown) (no (unknown) (unknown) Accompanied by: (units (unknown) date) Self / Same As unknown) Patient (unknown) (no (unknown) (unknown) 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 (unknown) (no (unknown) (unknown) Additionally he (units (unknown) date) reports some unknown) intermittent difficulty involving the left lateral (unknown) (no (unknown) (unknown) Age/Sex: 52 / M (units (unknown) date) Date of Service: unknown) (unknown) (no (unknown) (unknown) Alignment and (units ( unknown) date) Curvature: There is unknown) straightening of normal lumbar lordosis. (unknown) (no (unknown) (unknown) All other systems (units (unknown) date) reviewed and are unknown) unremarkable except as noted in HPI. (unknown) (no (unknown) (unknown) Allergies (units (unkn own) date) unknown) (unknown) (no (unknown) (unknown) MINDY [place] [id number] (unit s (unknown) date) unknown) (unknown) (no (unknown) (unknown) Approved by: Daniel (units (unknown) date) Andrew Cooley M.D. on unknown) 10/18/2020 at 16:28 (unknown) (no (unknown) (unknown) Approved by: Daniel (units (unknown) date) Andrew Cooley M.D. on unknown) 10/18/2020 at 16:30 05/02/2018 lumbar spine (unknown) (no (unknown) (unknown) Approved by: Edgar (units (unknown) date) Doc Chen on unknown) 05/03/2018 at 8:55 (unknown) (no (unknown) (unknown) Approved by: Romy (units (unknown) date) Doc Jacobo on unknown) 04/13/2022 at 16:37 (unknown) (no (unknown) (unknown) Approved by: Romy (units (unknown) date) Doc Jacobo on unknown) 04/13/2022 at 16:39? (unknown) (no (unknown) (unknown) Assessment + Plan (units (unknown) date) unknown) (unknown) (no (unknown) (unknown) Attending Dr: (units ( unknown) date) Sonido Monahan D.O. unknown) (unknown) (no (unknown) (unknown) BMI 26.3 (units (unkno wn) date) unknown) (unknown) (no (unknown) (unknown) BP 128/70 (units (unkn own) date) unknown) (unknown) (no (unknown) (unknown) Blood Pressure (units (unknown) date) Location Lt brachial unknown) (unknown) (no (unknown) (unknown) Bones: No acute (units (unknown) date) fracture identified. unknown) There is dextrocurvature of the (unknown) (no (unknown) (unknown) Bones: No acute (units (unknown) date) fracture. Multilevel unknown) degenerative endplate sclerosis and (unknown) (no (unknown) (unknown) Bones: No fractures (units (unknown) date) or dislocations. No unknown) suspicious bony lesions. Visualized ribs (unknown) (no (unknown) (unknown) Bones:? No (units (unk nown) date) fractures or unknown) dislocations to the C7 level.? There is trace (unknown) (no (unknown) (unknown) Bulging disc likely (unit s (unknown) date) contacting right L5 unknown) and S1 nerve roots. (unknown) (no (unknown) (unknown) C3-4 and C4-5.? (units (unknown) date) Intervertebral disc unknown) space narrowing and osteophytosis is present (unknown) (no (unknown) (unknown) COMPARISON: None. (units (unknown) date) unknown) (unknown) (no (unknown) (unknown) COMPARISON: [facility] (units (unknown) date) [facility] unknown) [place], [place], SPINE LUMB MIN 4VW, (unknown) (no (unknown) (unknown) COMPARISON:? None. 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 (units (unknown) date) unknown) (unknown) (no (unknown) (unknown) Denies recent (units ( unknown) date) trauma, fever or unknown) weight loss of unknown origin, immunocompromise (unknown) (no (unknown) (unknown) Dept at (units (unkno wn) date) . unknown) (unknown) (no (unknown) (unknown) Details: (units (unkno wn) date) unknown) (unknown) (no (unknown) (unknown) Dextrocurvature (units (unknown) date) unknown) (unknown) (no (unknown) (unknown) Dictated by: Daniel (units (unknown) date) Andrew Cooley M.D. on unknown) 10/18/2020 at 16:27 (unknown) (no (unknown) (unknown) Dictated by: Daniel (units (unknown) date) Andrew Cooley M.D. on unknown) 10/18/2020 at 16:28 (unknown) (no (unknown) (unknown) Dictated by: Edgar (units (unknown) date) Doc Chen on unknown) 05/03/2018 at 8:20 (unknown) (no (unknown) (unknown) Dictated by: Romy (units (unknown) date) Doc Jacobo on unknown) 04/13/2022 at 16:37 (unknown) (no (unknown) (unknown) Dictated by: Romy (units (unknown) date) Doc Jacobo on unknown) 04/13/2022 at 16:38 ? ? 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 unknown) Moderate narrowing of the L4-L5 disc space. Mild (unknown) (no (unknown) (unknown) Diffuse facet (units ( unknown) date) unknown) (unknown) (no (unknown) (unknown) Diffuse lumbar (units (unknown) date) spondylosis and unknown) moderate L4-L5 disc degeneration, with slight (unknown) (no (unknown) (unknown) Diffuse spondylitic (unit s (unknown) date) changes. unknown) (unknown) (no (unknown) (unknown) Documented By: (units (unknown) date) Sonido Monahan D.O. unknown) 06/05/22 1113 (unknown) (no (unknown) (unknown) Endorses thoracic (units (unknown) date) HNP, lumbar sacral unknown) HNP, lumbosacral spondylosis, (unknown) (no (unknown) (unknown) Exam Narrative (units (unknown) date) unknown) (unknown) (no (unknown) (unknown) Exam Narrative: (units (unknown) date) unknown) (unknown) (no (unknown) (unknown) Exam (units (unkno wn) date) unknown) (unknown) (no (unknown) (unknown) FINDINGS: (units (unkn own) date) unknown) (unknown) (no (unknown) (unknown) FINDINGS:? (units (unk nown) date) unknown) (unknown) (no (unknown) (unknown) Facet arthropathy, (units (unknown) date) lumbar unknown) (unknown) (no (unknown) (unknown) Family History (units (unknown) date) (Reviewed 06/05/22 @ unknown) 11:46 by Sonido Monahan DO) (unknown) (no (unknown) (unknown) Father Colon cancer (unit s (unknown) date) unknown) (unknown) (no (unknown) (unknown) Gait: Full (units (unk nown) date) weightbearing. No unknown) assistive device. Stooped Gait Posture due to (unknown) (no (unknown) (unknown) General: The (units (u nknown) date) patient is in no unknown) obvious distress. Normal affect. Fully (unknown) (no (unknown) (unknown) Grandmother (units (un known) date) Stroke unknown) (unknown) (no (unknown) (unknown) HPI (units (unkno wn) date) unknown) (unknown) (no (unknown) (unknown) Height 5 ft 11 in (units (unknown) date) unknown) (unknown) (no (unknown) (unknown) History of (units (unk nown) date) arthroscopy of knee unknown) (unknown) (no (unknown) (unknown) IMPRESSION: No (units (unknown) date) acute radiographic unknown) findings. (unknown) (no (unknown) (unknown) IMPRESSION: (units (un known) date) unknown) (unknown) (no (unknown) (unknown) IMPRESSION:? (units (u nknown) date) Degenerative change unknown) and foraminal stenosis as above. (unknown) (no (unknown) (unknown) INDICATIONS: PAIN (units (unknown) date) unknown) (unknown) (no (unknown) (unknown) INDICATIONS: RIGHT (units (unknown) date) SHOULDER PAIN unknown) (unknown) (no (unknown) (unknown) INDICATIONS:? NECK (units (unknown) date) PAIN unknown) (unknown) (no (unknown) (unknown) Imaging was (units (unk nown) date) personally reviewed unknown) and findings correlate with radiology reports as (unknown) (no (unknown) (unknown) Intake Clinical (units (unknown) date) Staff unknown) (unknown) (no (unknown) (unknown) Intake Note: (units (u nknown) date) unknown) (unknown) (no (unknown) (unknown) Intake performed (units (unknown) date) by: Ade Infante unknown) (unknown) (no (unknown) (unknown) Intake (units (unkno wn) date) unknown) (unknown) (no (unknown) (unknown) Is patient in (units ( unknown) date) pain?: No (Since the unknown) injection his pain is gone) (unknown) (no (unknown) (unknown) Michael and I did (units (unknown) date) review at length his unknown) underlying pathology regarding his right (unknown) (no (unknown) (unknown) Michael presents (units (unknown) date) today status post unknown) right AC joint injection performed on (unknown) (no (unknown) (unknown) L4-5 and L5-S1 (units (unknown) date) levels causing unknown) moderate central canal stenosis and moderate to (unknown) (no (unknown) (unknown) L4-L5: Again noted (units (unknown) date) is diffuse disc unknown) bulge and superimposed broad-based central (unknown) (no (unknown) (unknown) L4. (units (unkno wn) date) unknown) (unknown) (no (unknown) (unknown) L5-S1: Diffuse disc (units (unknown) date) bulge and unknown) superimposed right lateral disc protrusion is seen (unknown) (no (unknown) (unknown) Lateral (units (unkno wn) date) epicondylitis unknown) (unknown) (no (unknown) (unknown) Laterality: right (units (unknown) date) Qualified Code(s): unknown) M77.11 - Lateral epicondylitis, (unknown) (no (unknown) (unknown) Left Lower (units (unk nown) date) Extremity: No edema, unknown) joint effusion or atrophy. tenderness over the (unknown) (no (unknown) (unknown) Left Upper (units (unk nown) date) Extremity: Left unknown) upper extremity exam shows grossly normal alignment, (unknown) (no (unknown) (unknown) Loc: PAIN (units (unkn own) date) unknown) (unknown) (no (unknown) (unknown) Lower cervical (units (unknown) date) spondylosis also unknown) noted. (unknown) (no (unknown) (unknown) MRI results: (units (u nknown) date) unknown) (unknown) (no (unknown) (unknown) MSK: System (units (un known) date) reviewed and no unknown) additional complaints, except as documented. (unknown) (no (unknown) (unknown) Medical History (units (unknown) date) (Reviewed 06/05/22 @ unknown) 11:46 by Sonido Monahan DO) (unknown) (no (unknown) (unknown) Medications (units (un known) date) unknown) (unknown) (no (unknown) (unknown) Minimal (units (unkno wn) date) unknown) (unknown) (no (unknown) (unknown) Moderate to severe (units (unknown) date) central canal unknown) stenosis and bilateral neural foramina (unknown) (no (unknown) (unknown) Moderate to severe (units (unknown) date) foraminal stenosis unknown) is present on the right at C4-5 and (unknown) (no (unknown) (unknown) Mother Polyp, (units ( unknown) date) stomach unknown) (unknown) (no (unknown) (unknown) Neuro: System (units ( unknown) date) reviewed and no unknown) additional complaints, except as documented. (unknown) (no (unknown) (unknown) Neurologic: (units (un known) date) Sensation is grossly unknown) intact to light touch throughout the upper and (unknown) (no (unknown) (unknown) No Known Drug (units ( unknown) date) Allergies Allergy unknown) (Verified 06/05/22 11:13) (unknown) (no (unknown) (unknown) No fever, chills, (units (unknown) date) signs of infection, unknown) weakness after right L4, L5, S1 MB RFA (unknown) (no (unknown) (unknown) Objective Data (units (unknown) date) unknown) (unknown) (no (unknown) (unknown) Objective Data: (units (unknown) date) unknown) (unknown) (no (unknown) (unknown) Oblique images: No (units (unknown) date) pars defects. unknown) (unknown) (no (unknown) (unknown) Ordering Provider: (units (unknown) date) Sonido Monahan D.O. unknown) (unknown) (no (unknown) (unknown) Oxygen Delivery (units (unknown) date) Method room air unknown) (unknown) (no (unknown) (unknown) PFSH (units (unkno wn) date) unknown) (unknown) (no (unknown) (unknown) PROCEDURE: XR (units ( unknown) date) LUMBAR SPINE MIN 4V unknown) (unknown) (no (unknown) (unknown) PROCEDURE: XR (units ( unknown) date) SHOULDER RT MIN 2V unknown) (unknown) (no (unknown) (unknown) PROCEDURE: XR (units ( unknown) date) THORACIC SPINE 3V unknown) (unknown) (no (unknown) (unknown) PROCEDURE:? XR (units (unknown) date) CERVICAL SPINE 4V OR unknown) 5V (unknown) (no (unknown) (unknown) Pain Scale (units (unk nown) date) unknown) (unknown) (no (unknown) (unknown) Pain Visit (units (unk nown) date) unknown) (unknown) (no (unknown) (unknown) Patient: (units (unkno wn) date) Michael Paulino unknown) MR#: [id number] (unknown) (no (unknown) (unknown) Plan (units (unkno wn) date) unknown) (unknown) (no (unknown) (unknown) Position Sitting (units (unknown) date) unknown) (unknown) (no (unknown) (unknown) Procedure: XR (units ( unknown) date) lumbar spine min 4V unknown) (unknown) (no (unknown) (unknown) Pulse 72 (units (unkno wn) date) unknown) (unknown) (no (unknown) (unknown) Pulse Oximetry (%) (units (unknown) date) 99 unknown) (unknown) (no (unknown) (unknown) Pulse Source (units (u nknown) date) Monitor unknown) (unknown) (no (unknown) (unknown) Qualifiers: (units (un known) date) unknown) (unknown) (no (unknown) (unknown) ROS Narrative (units ( unknown) date) unknown) (unknown) (no (unknown) (unknown) ROS Narrative: (units (unknown) date) unknown) (unknown) (no (unknown) (unknown) ROS (units (unkno wn) date) unknown) (unknown) (no (unknown) (unknown) Reason For Visit (units (unknown) date) unknown) (unknown) (no (unknown) (unknown) Right Lower (units (un known) date) Extremity: No edema, unknown) effusion or atrophy. 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 (unknown) (no (unknown) (unknown) Smoking Status: (units (unknown) date) Never smoker unknown) (unknown) (no (unknown) (unknown) Social History (units (unknown) date) unknown) (unknown) (no (unknown) (unknown) Soft tissues: No (units (unknown) date) paravertebral stripe unknown) thickening. (unknown) (no (unknown) (unknown) Soft tissues: No (units (unknown) date) suspicious soft unknown) tissue calcifications. (unknown) (no (unknown) (unknown) Soft tissues: (units ( unknown) date) Overlying bowel gas unknown) pattern is normal. No suspicious soft tissue (unknown) (no (unknown) (unknown) Soft tissues:? No (units (unknown) date) prevertebral soft unknown) tissue swelling.? (unknown) (no (unknown) (unknown) Spine: Cervical (units (unknown) date) spine ROM unknown) functional. Lumbar spine ROM was reduced in all (unknown) (no (unknown) (unknown) Status: Acute (units ( unknown) date) unknown) (unknown) (no (unknown) (unknown) Status: Chronic (units (unknown) date) unknown) (unknown) (no (unknown) (unknown) Surgical History (units (unknown) date) (Reviewed 06/05/22 @ unknown) 11:46 by Sonido Billow, DO) (unknown) (no (unknown) (unknown) TECHNIQUE: 3 views (units (unknown) date) of the shoulder were unknown) acquired. (unknown) (no (unknown) (unknown) TECHNIQUE: 3 views (units (unknown) date) of the thoracic unknown) spine were acquired. (unknown) (no (unknown) (unknown) TECHNIQUE: 5 views (units (unknown) date) of the lumbar spine unknown) were acquired, including bilateral (unknown) (no (unknown) (unknown) TECHNIQUE:? 5 views (unit s (unknown) date) of the cervical unknown) spine acquired.? (unknown) (no (unknown) (unknown) Temp 98.7 F (units (un known) date) unknown) (unknown) (no (unknown) (unknown) Temp Source (units (un known) date) Temporal Artery Scan unknown) (unknown) (no (unknown) (unknown) [facility] (unit s (unknown) date) Management unknown) (unknown) (no (unknown) (unknown) This note may have (units (unknown) date) been all or unknown) partially generated using voice recognition (unknown) (no (unknown) (unknown) Tobacco + Substance (unit s (unknown) date) Use unknown) (unknown) (no (unknown) (unknown) Tobacco Status (units (unknown) date) unknown) (unknown) (no (unknown) (unknown) Visit Reasons: (units (unknown) date) Follow Up Right unknown) Shoulder Injection, RIGHT SHOULDER PAIN (unknown) (no (unknown) (unknown) Vitals (units (unkno wn) date) unknown) (unknown) (no (unknown) (unknown) Voltaren gel would (units (unknown) date) likely be further unknown) beneficial for regarding his right shoulder (unknown) (no (unknown) (unknown) Weight 189 lb (units ( unknown) date) unknown) (unknown) (no (unknown) (unknown) acetaminophen 325 (units (unknown) date) mg tablet (Tylenol) unknown) 650 mg PO Q6H PRN Pain (Scale Score 1-3) (unknown) (no (unknown) (unknown) alcohol intake: (units (unknown) date) current unknown) (unknown) (no (unknown) (unknown) alignment, range of (unit s (unknown) date) motion, strength and unknown) stability with no swelling, atrophy or (unknown) (no (unknown) (unknown) and C5-6.? Moderate (unit s (unknown) date) stenosis is present unknown) on the left at C6-7. (unknown) (no (unknown) (unknown) appear (units (unkno wn) date) unknown) (unknown) (no (unknown) (unknown) arthropathy. Lower (units (unknown) date) cervical spondylosis unknown) and facet arthropathy also noted. (unknown) (no (unknown) (unknown) arthrosis at (units (u nknown) date) unknown) (unknown) (no (unknown) (unknown) as well as putting (units (unknown) date) in a new garden unknown) system. 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 (units (unkn own) date) Occasional unknown) wrong-word or 'sound-alike' substitutions may have (unknown) (no (unknown) (unknown) bilateral fibrosis (units (unknown) date) and hypertrophy of unknown) ligamentum flavum. Mild central canal (unknown) (no (unknown) (unknown) bilateral (units (unkn own) date) neuroforaminal unknown) narrowing as described in detail above, progressed (unknown) (no (unknown) (unknown) calcifications. (units (unknown) date) unknown) (unknown) (no (unknown) (unknown) canal (units (unkno wn) date) unknown) (unknown) (no (unknown) (unknown) carpi radialis (units (unknown) date) would be beneficial unknown) on the left side. At this time is thoracic (unknown) (no (unknown) (unknown) continued to (units (u nknown) date) improve. unknown) (unknown) (no (unknown) (unknown) disc (units (unkno wn) date) unknown) (unknown) (no (unknown) (unknown) edema. (units (unkno wn) date) unknown) (unknown) (no (unknown) (unknown) effusion. (units (unkn own) date) unknown) (unknown) (no (unknown) (unknown) encouraged to (units ( unknown) date) continue with this unknown) as well. He does have some mild clicking (unknown) (no (unknown) (unknown) epicondylitis. He (units (unknown) date) does report he is unknown) not doing his stretching at this point as (unknown) (no (unknown) (unknown) famotidine 20 mg (units (unknown) date) tablet 20 mg PO BID unknown) 06/05/22 [History Confirmed 06/05/22] (unknown) (no (unknown) (unknown) fever fatigue at (units (unknown) date) this time. He has unknown) been fully vaccinated. (unknown) (no (unknown) (unknown) greater (units (unkno wn) date) trochanteric region unknown) (unknown) (no (unknown) (unknown) greater (units (unkno wn) date) trochanteric region. unknown) (unknown) (no (unknown) (unknown) have occurred. If (units (unknown) date) there are any unknown) questions, please contact the Medical Records (unknown) (no (unknown) (unknown) he is not using any (unit s (unknown) date) medications for the unknown) above-stated symptomatology. He reports (unknown) (no (unknown) (unknown) he reports it is (units (unknown) date) minimally for unknown) problematic form. He does report he has moved (unknown) (no (unknown) (unknown) here for right (units (unknown) date) shoulder pain unknown) (unknown) (no (unknown) (unknown) household members: (units (unknown) date) spouse unknown) (unknown) (no (unknown) (unknown) hyoscyamine sulfate (unit s (unknown) date) 0.125 mg unknown) disintegrating tablet 0.125 mg PO BEDTIME PRN (unknown) (no (unknown) (unknown) increased tenderness (unit s (unknown) date) with axial loading unknown) and extension based maneuvers tenderness (unknown) (no (unknown) (unknown) intact. 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 I do believe some topical (unknown) (no (unknown) (unknown) is in agreement (units (unknown) date) with the unknown) above-stated plan. (unknown) (no (unknown) (unknown) left-sided neural (units (unknown) date) foramina narrowing unknown) is seen, also progressed since previous (unknown) (no (unknown) (unknown) listed below. (units ( unknown) date) unknown) (unknown) (no (unknown) (unknown) lower extremities. (units (unknown) date) motor 5/5 all LE unknown) muscle groups. Coordination appears normal. (unknown) (no (unknown) (unknown) moderate (units (unkno wn) date) unknown) (unknown) (no (unknown) (unknown) narrowing is (units (u nknown) date) unknown) (unknown) (no (unknown) (unknown) narrowing (units (unkn own) date) unknown) (unknown) (no (unknown) (unknown) nausea 06/05/22 (units (unknown) date) [History Confirmed unknown) 06/05/22] (unknown) (no (unknown) (unknown) neurological (units (u nknown) date) deficit with unknown) progressive or disabling symptoms. (unknown) (no (unknown) (unknown) noted at this level (unit s (unknown) date) progressed since unknown) 2016 study. Finding is slightly worse on (unknown) (no (unknown) (unknown) noted. Moderate to (units (unknown) date) severe right-sided unknown) neuroforaminal narrowing and mild to (unknown) (no (unknown) (unknown) oblique views. (units (unknown) date) unknown) (unknown) (no (unknown) (unknown) occurred due to the (unit s (unknown) date) inherent limitations unknown) of voice recognition software. Please (unknown) (no (unknown) (unknown) of the remaining (units (unknown) date) lumbar disc spaces. unknown) Trace retrolisthesis of L2 on L3 and L3 on (unknown) (no (unknown) (unknown) on 04/13/2022. He (units (unknown) date) has done very well unknown) with his home exercise program he was (unknown) (no (unknown) (unknown) or (units (unkno wn) date) immunosuppressive unknown) therapy, previous or current cancer diagnosis, history of (unknown) (no (unknown) (unknown) oriented. (units (unkn own) date) unknown) (unknown) (no (unknown) (unknown) otherwise feeling (units (unknown) date) well maintain the unknown) Covid19 social restrictions without cough (unknown) (no (unknown) (unknown) planes. On (units (unk nown) date) palpation, there is unknown) tenderness over the spinous processes. With (unknown) (no (unknown) (unknown) point. Additionally (unit s (unknown) date) I do believe that E unknown) centric strengthening to the extensor (unknown) (no (unknown) (unknown) program regarding (units (unknown) date) his bilateral unknown) shoulders. He reports minimal if any discomfort (unknown) (no (unknown) (unknown) program. (units (unkno wn) date) unknown) (unknown) (no (unknown) (unknown) progression (units (un known) date) unknown) (unknown) (no (unknown) (unknown) prominent (units (unkn own) date) difficulty at the unknown) day after the injection in gradual progressive (unknown) (no (unknown) (unknown) protrusion. (units (un known) date) Bilateral facet unknown) arthrosis and hypertrophy of ligamentum flavum is (unknown) (no (unknown) (unknown) provocative (units (unk nown) date) maneuvers including unknown) sacra shear test as well as pelvic obliquity are (unknown) (no (unknown) (unknown) range of motion, (units (unknown) date) strength and unknown) stability with no swelling, atrophy or effusion. (unknown) (no (unknown) (unknown) read the note (units ( unknown) date) carefully and unknown) recognize, using context, where these substitutions (unknown) (no (unknown) (unknown) regarding his left (units (unknown) date) lateral unknown) epicondylitis. This is minimal for him at this (unknown) (no (unknown) (unknown) regarding the AC (units (unknown) date) joint although does unknown) have an occasional click involving the (unknown) (no (unknown) (unknown) relief. He does (units (unknown) date) report he has been unknown) quite compliant with his home exercise (unknown) (no (unknown) (unknown) retrolisthesis at (units (unknown) date) unknown) (unknown) (no (unknown) (unknown) retrolisthesis of (units (unknown) date) L4 and L5 is again unknown) seen, unchanged from previous study. (unknown) (no (unknown) (unknown) revisit with him. (units (unknown) date) All of his questions unknown) were answered to the best my ability he (unknown) (no (unknown) (unknown) right elbow (units (un known) date) unknown) (unknown) (no (unknown) (unknown) right shoulder. He (units (unknown) date) reports his range of unknown) motion as well as his strength has (unknown) (no (unknown) (unknown) seen. (units (unkno wn) date) unknown) (unknown) (no (unknown) (unknown) severe (units (unkno wn) date) unknown) (unknown) (no (unknown) (unknown) shoulder. He is (units (unknown) date) doing very well unknown) status post right AC joint injection performed (unknown) (no (unknown) (unknown) side with bulging (units (unknown) date) disc likely unknown) contacting bilateral L4 and L5 nerve roots. (unknown) (no (unknown) (unknown) since 1999 at (units ( unknown) date) unknown) (unknown) (no (unknown) (unknown) since 11/15/16. (units (unknown) date) unknown) (unknown) (no (unknown) (unknown) software. 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 (units (unkn own) date) unknown) (unknown) (no (unknown) (unknown) stenosis is present (unit s (unknown) date) at C5-6.? Severe unknown) foraminal stenosis is present on the left (unknown) (no (unknown) (unknown) stenosis is (units (un known) date) unknown) (unknown) (no (unknown) (unknown) stenosis, not (units ( unknown) date) significantly unknown) changed from previous study. (unknown) (no (unknown) (unknown) study. (units (unkno wn) date) unknown) (unknown) (no (unknown) (unknown) the mid cervical (units (unknown) date) spine. unknown) (unknown) (no (unknown) (unknown) the right (units (unkn own) date) unknown) (unknown) (no (unknown) (unknown) thoracic spine as (units (unknown) date) well as his lateral unknown) epicondylitis. He reports that this time (unknown) (no (unknown) (unknown) thoracic spine. (units (unknown) date) Multilevel unknown) degenerative endplate sclerosis and spurring. (unknown) (no (unknown) (unknown) tissue (units (unkno wn) date) calcification unknown) projects at the base of the posterior cervical spine. (unknown) (no (unknown) (unknown) to palpation on (units (unknown) date) paraspinals.straight unknown) leg raising negative bilaterally. Sacral (unknown) (no (unknown) (unknown) visualized (units (unk nown) date) unknown) (unknown) (no (unknown) (unknown) with (units (unkno wn) date) unknown) (unknown) (no (unknown) (unknown) within normal (units ( unknown) date) limits. unknown) (unknown) (no (unknown) (unknown) within (units (unkno wn) date) unknown) Social History date description facility 2022-04-13 00:00 Never smoked tobacco (finding) [facility] 2022-05-09 00:00 Never smoked tobacco (finding) [facility] 2022-06-05 00:00 Never smoked tobacco (finding) [facility] Vital Signs date measurement value units 2022-04-13 00:00 BMI 26.3 kg/m2 2022-04-13 00:00 BP_diastolic 62 mmHg 2022-04-13 00:00 BP_systolic 110 mmHg 2022-04-13 00:00 heart_rate 72 /min 2022-04-13 00:00 height_metric 180.34 cm 2022-04-13 00:00 height_standard 71 in 2022-04-13 00:00 o2_saturation 100 % 2022-04-13 00:00 temperature_metric 36.78 C 2022-04-13 00:00 temperature_standard 98.2 F 2022-04-13 00:00 weight_metric 85.72 kg 2022-04-13 00:00 weight_standard 188.98 lb 2022-05-09 00:00 BMI 25.9 kg/m2 2022-05-09 00:00 BP_diastolic 74 mmHg 2022-05-09 00:00 BP_systolic 110 mmHg 2022-05-09 00:00 heart_rate 62 /min 2022-05-09 00:00 height_metric 180.34 cm 2022-05-09 00:00 height_standard 71 in 2022-05-09 00:00 o2_saturation 100 % 2022-05-09 00:00 respiration_rate 11 /min 2022-05-09 00:00 temperature_metric 36.11 C 2022-05-09 00:00 temperature_standard 97 F 2022-05-09 00:00 weight_metric 84.36 kg 2022-05-09 00:00 weight_standard 185.98 lb 2022-06-05 00:00 BMI 26.3 kg/m2 2022-06-05 00:00 BP_diastolic 70 mmHg 2022-06-05 00:00 BP_systolic 128 mmHg 2022-06-05 00:00 heart_rate 72 /min 2022-06-05 00:00 height_metric 180.34 cm 2022-06-05 00:00 height_standard 71 in 2022-06-05 00:00 o2_saturation 99 % 2022-06-05 00:00 temperature_metric 37.06 C 2022-06-05 00:00 temperature_standard 98.7 F 2022-06-05 00:00 weight_metric 85.72 kg 2022-06-05 00:00 weight_standard 188.98 lb
[2022-06-26 22:09] LABS: ALBUMIN 4.7 g/dL (3.2-5.5); ALBUMIN/GLOBULIN RATIO 1.5 (1.0-2.2); BILIRUBIN,TOTAL 0.7 mg/dL (0.2-1.0); CALCIUM 9.7 mg/dL (8.5-10.3); CREATININE 0.7 mg/dL (0.6-1.2); POTASSIUM 3.5 mmol/L (3.5-5.0); TOTAL PROTEIN 7.8 g/dL (6.7-8.2)
[2022-06-26] MEDS ORDERED: SODIUM CHLORIDE 0.9% 1,000 ML IV STA (23:18)
[2022-06-26] MEDS ORDERED: KETOROLAC 15 MG/ML VIAL IVP STA (23:18)
[2022-06-26] MEDS ORDERED: iohexoL-300 100 ML VIAL ONE (23:22)
[2022-06-26] MEDS ORDERED: iohexoL-300 100 ML VIAL IVP ONE (23:57)
[2022-06-27] MEDS ORDERED: PIPERACILLIN/TAZOBACTAM 3.375 GM in SODIUM CHLORIDE 0.9% MINIBAG 100 ML IV STA (00:28)
[2022-06-27] MEDS ORDERED: SODIUM CHLORIDE 0.9% 1,000 ML IV STA (00:29)
--- NOTE | 2022-06-27 00:31 | CT Report ---
PROCEDURE: ABDOMEN/PELVIS W INDICATIONS: RLQ pain CONTRAST: Omni 300 100ml TECHNIQUE: After the administration of intravenous contrast, 5 mm thick sections acquired from the diaphragms to the symphysis. 5 mm thick coronal and sagittal reformats were acquired. For radiation dose reducti on, the following was used: automated exposure control, adjustment of mA and/or kV according to chin ent size. COMPARISON: None. FINDINGS: Image quality: Excellent. Lung bases: Unremarkable. Heart: Heart is normal in size. ABDOMEN: Liver: No mass lesion. Gallbladder: Within normal limits without calcified gallstones. Biliary ducts: No biliary ductal dilatation. Pancreas: Unremarkable. Spleen: Normal in size. Adrenal Glands: No adrenal nodules. Kidneys and Ureters: No hydronephrosis. Stomach and Bowel: Stomach, small bowel loops, and colon are normal in caliber and wall thickness. T he appendix is enlarged and thick-walled, measuring up to 0.9 cm in diameter. There is associated per iappendiceal fat stranding and fluid. No free air or loculated abscess collection. Ventral Wall: No hernia. Abdominal Nodes: No retroperitoneal or mesenteric adenopathy by size criteria. Vessels: Aorta and inferior vena cava are normal in size. PELVIS: Pelvic Organs: Unremarkable. Bladder: Unremarkable. Pelvic Nodes: No enlarged lymph nodes. Miscellaneous: No inguinal hernias. Bones: Visualized osseous structures demonstrate no suspicious lesions. IMPRESSION: 1. Acute appendicitis with appendiceal fluid suspicious for perforation. No discrete abscess collecti on or free air. Findings discussed with Dr. Miller on 06/27/2022 at 12:27 AM. Reviewed by: Stan Dawkins MD on 06/27/2022 12:30 AM [facility] Approved by: Stan Dawkins MD on 06/27/2022 12:30 AM PST Station ID: [id number]
--- NOTE | 2022-06-27 00:34 | ED Physician Documentation ---
History of Present Illness - Stated complaint Stated Complaint: LOWER ABD PX - Chief complaint Chief Complaint: Abd Pain - History obtained from History obtained from: Patient - Additonal information Additional information: 52-year-old man presents with right lower quadrant abdominal pain abrupt onset tonight. Denies nausea and vomiting but does endorse some dysuria. Denies hematuria.Denies fever Review of Systems Constitutional: denies: Fever GI: reports: Abdominal Pain. denies: Nausea, Vomiting : reports: Dysuria PD PAST MEDICAL HISTORY - Past Medical History Past Medical History: Yes Cardiovascular: High cholesterol - Past Surgical History Past Surgical History: No - Present Medications Home Medications: Ambulatory Orders Medication Instructions Recorded Confirmed Atorvastatin [Lipitor] 10 mg ORAL QPM 06/26/22 06/26/22 - Allergies Allergies/Adverse Reactions: Allergies Allergy/AdvReac Type Severity Reaction Status Date / Time No Known Drug Allergies Allergy Verified 06/26/22 21:42 - Social History Does the pt smoke?: No Smoking Status: Never smoker Does the pt drink ETOH?: Yes Does the pt have substance abuse?: No - Immunizations Immunizations are current?: Yes - POLST Patient has POLST: No PD ED PE NORMAL - Vitals Vital signs reviewed: Yes - General General: Alert and oriented X 3, No acute distress, Well developed/nourished - HEENT HEENT: Atraumatic, PERRL, EOMI - Abdomen Abdomen: Other (Right lower quadrant tender to palpation) - Derm Derm: Normal color, Warm and dry Results - Vitals Vitals: Vital Signs - 24 hr 06/26/22 06/26/22 21:38 22:48 Temperature 37.3 C Heart Rate 89 88 Respiratory 16 16 Rate Blood Pressure 119/68 129/76 O2 Saturation 100 96 Oxygen O2 Source Room air - Labs Labs: Laboratory Tests 06/26/22 06/26/22 06/26/22 21:46 21:51 21:51 WBC 11.8 H RBC 4.96 Hgb 14.7 Hct 44.5 MCV 89.7 MCH 29.6 MCHC 33.0 RDW 12.6 Plt Count 241 MPV 9.8 Neut # (Auto) 9.1 H Lymph # (Auto) 1.5 Gooding # (Auto) 1.1 H Eos # (Auto) 0.0 Baso # (Auto) 0.0 Absolute Nucleated RBC 0.00 Nucleated RBC % 0.0 Sodium 137 Potassium 3.5 Chloride 96 L Carbon Dioxide 32 Anion Gap 9.0 BUN 13 Creatinine 0.7 Estimated GFR (MDRD) 118 Glucose 99 Calcium 9.7 Total Bilirubin 0.7 AST 26 ALT 19 Alkaline Phosphatase 63 Total Protein 7.8 Albumin 4.7 Globulin 3.1 Albumin/Globulin Ratio 1.5 Lipase 30 Urine Color YELLOW Urine Clarity CLEAR Urine pH 8.0 H Ur Specific Alder 1.020 Urine Protein NEGATIVE Urine Glucose (UA) NEGATIVE Urine Ketones NEGATIVE Urine Occult Blood NEGATIVE Urine Nitrite NEGATIVE Urine Bilirubin NEGATIVE Urine Urobilinogen 0.2 (NORMAL) Ur Leukocyte Esterase NEGATIVE Ur Microscopic Review NOT INDICATED Urine Culture Comments NOT INDICATED PD Medical Decision Making - ED course ED course: 52-year-old man presents with perforated appendicitis. I count 11.9, otherwise CBC and abdominal panel were benign. Plan to treat with IV fluids and antibiotics.Symptomatic care also provided via IV Toradol. Pain is well controlled at this time d/w Dr. Sandoval for admission for appendicitis. NPO for surgery in AM. Departure - Departure Disposition: [facility] DC/Xfer Clinical Impression: Appendicitis Condition: Serious
[2022-06-27] MEDS ORDERED: SODIUM CHLORIDE FLUSH 0.9% 10 ML SYRINGE IVP PRN ×2 (00:43→11:13)
[2022-06-27] MEDS ORDERED: IBUPROFEN 600 MG TABLET PO PRN (00:43)
[2022-06-27] MEDS ORDERED: MORPHINE 2 MG/ML CARPUJECT IVP PRN ×2 (00:43→09:29)
[2022-06-27] MEDS ORDERED: ONDANSETRON 4 MG/2 ML VIAL IVP PRN ×2 (00:43→09:29)
[2022-06-27] MEDS ORDERED: HYDROcod/ACETAM 5/325 MG TABLET PO PRN (00:43)
[2022-06-27] MEDS ORDERED: LACTATED RINGERS 1,000 ML IV SCH ×3 (01:00→11:17)
[2022-06-27] MEDS: SODIUM CHLORIDE FLUSH 0.9% 10 ML SYRINGE IVP SCH ×3 (01:44→17:38)
[2022-06-27] MEDS: PIPERACILLIN/TAZOBACTAM 3.375 GM in SODIUM CHLORIDE 0.9% MINIBAG 100 ML IV SCH ×2 (05:48→13:35)
[2022-06-27] MEDS ORDERED: SODIUM CHLORIDE 0.9% 1,000 ML IV SCH (05:48)
[2022-06-27] MEDS ORDERED: METOCLOPRAMIDE 10 MG/2 ML VIAL IVP PRN (09:29)
[2022-06-27] MEDS ORDERED: ePHEDrine 50 MG/ML VIAL IVP PRN (09:29)
[2022-06-27] MEDS ORDERED: NALOXONE 0.4 MG/ML VIAL IVP PRN (09:29)
[2022-06-27] MEDS ORDERED: HYDROmorphone 0.5 MG/0.5 ML SYRINGE IVP PRN (09:29)
[2022-06-27] MEDS ORDERED: fentaNYL 100 MCG/2 ML VIAL IVP PRN (09:29)
[2022-06-27] MEDS ORDERED: ATROPINE ABBOJECT 1 MG/10 ML SYRINGE IVP PRN (09:29)
--- NOTE | 2022-06-27 09:29 | ANESTHESIA ---
Pre-Anesthesia VS, & Labs - Diagnosis acute appendicitis - Procedure laparoscopic appendectomy Vital Signs: Temp Pulse Resp BP Pulse Ox O2 Flow Rate 37.0 C 75 16 118/60 96 06/27/22 08:40 06/27/22 08:40 06/27/22 08:40 06/27/22 08:40 06/27/22 08:40 Height: 5 ft 11 in Weight (kg): 89 kg Body Mass Index: 27.3 BMI Classification: Overweight - NPO >8 hours - Lab Results Current Lab Results: Laboratory Tests 06/26/22 21:51: Sodium 137, Potassium 3.5, Chloride 96 L, Carbon Dioxide 32, Anion Gap 9.0, BUN 13, Creatinine 0.7, Estimated GFR (MDRD) 118, Glucose 99, Calcium 9.7, Total Bilirubin 0.7, AST 26, ALT 19, Alkaline Phosphatase 63, Total Protein 7.8, Albumin 4.7, Globulin 3.1, Albumin/Globulin Ratio 1.5, Lipase 30 06/26/22 21:51: WBC 11.8 H, RBC 4.96, Hgb 14.7, Hct 44.5, MCV 89.7, MCH 29.6, MCHC 33.0, RDW 12.6, Plt Count 241, MPV 9.8, Neut # (Auto) 9.1 H, Lymph # (Auto) 1.5, [place] # (Auto) 1.1 H, Eos # (Auto) 0.0, Baso # (Auto) 0.0, Absolute Nucleated RBC 0.00, Nucleated RBC % 0.0 Lab results reviewed: Yes Fish Bones: 06/26/22 21:51 06/26/22 21:51 Home Medications and Allergies Home Medications: Ambulatory Orders Atorvastatin [Lipitor] 10 mg ORAL QPM 06/26/22 Active Medications Hydrocodone Bitart/Acetaminophen (Hydrocod/Acetam 5/325 Mg Tablet) 1 tab PO Q4HR PRN PRN Reason: Pain 5 to 7 Lactated Ringer's (Lr) 1,000 mls @ 100 mls/hr IV .Q10H TOM Last Infusion: 06/27/22 05:47 Dose: 0 mls/hr Piperacillin Sod/Tazobactam (Sod 3.375 gm/ Sodium Chloride) 100 mls @ 25 mls/hr IV Q8H TOM Last Admin: 06/27/22 05:48 Dose: 25 mls/hr Sodium Chloride (Normal Saline 0.9%) 1,000 mls @ 100 mls/hr IV .Q10H [facility] Ibuprofen (Ibuprofen 600 Mg Tablet) 600 mg PO Q6HR PRN PRN Reason: Pain 1 to 4 Morphine Sulfate (Morphine 2 Mg/Ml Carpuject) 2 mg IVP Q2HR PRN PRN Reason: Pain 8 to 10 Ondansetron HCl (Ondansetron 4 Mg/2 Ml Vial) 4 mg IVP Q6HR PRN PRN Reason: Nausea / Vomiting Sodium Chloride (Sodium Chloride Flush 0.9% 10 Ml Syringe) 10 ml IVP PRN PRN PRN Reason: NEEDED PER PROVIDER ORDERS Sodium Chloride (Sodium Chloride Flush 0.9% 10 Ml Syringe) 10 ml IVP 0100,0900,1700 [facility] Last Admin: 06/27/22 01:44 Dose: 10 ml Atorvastatin [Lipitor] 10 mg ORAL QPM 06/26/22 Allergies/Adverse Reactions: Allergies Allergy/AdvReac Type Severity Reaction Status Date / Time No Known Drug Allergies Allergy Verified 06/26/22 21:42 Anes History & Medical History - Anesthetic History Anesthesia Complications: reports: No previous complications Family history of Anesthesia Complications: Denies Family history of Malignant Hyperthermia: Denies - Medical History Cardiovascular: reports: High cholesterol Pulmonary: reports: None Gastrointestinal: reports: None Urinary: reports: None Neuro: reports: None Musculoskeletal: reports: None Endocrine/Autoimmune: reports: None Blood Disorders: reports: None Skin: reports: None Smoking Status: Never smoker - Surgical History General: reports: Colonoscopy, EGD Exam General: Alert, Oriented x3, Cooperative Dental: WNL Mouth Openin Fingerbreadth Neck Mobility: Normal Mallampati classification: II Thyromental Distance: 4-6 cm Respiratory: Lungs clear, Normal breath sounds, No respiratory distress Cardiovascular: Regular rate Neurological: Normal speech Mental/Cognitive Status: Alert/Oriented X3, Normal for patient Cognitive Status: Within normal limits Plan Anesthesia Type: General Consent for Procedure(s) Verified and Reviewed: Yes Code Status: Attempt Resuscitation ASA classification: 2-Mild systemic disease Is this case an emergency?: Yes
[2022-06-27] MEDS ORDERED: LIDOCAINE MPF 2%-EPI 1:200000 20 ML VIAL ONE (09:32)
[2022-06-27] MEDS ORDERED: BUPIVACAINE 0.25% PF 30 ML VIAL ONE (09:32)
[2022-06-27] MEDS ORDERED: MIDAZOLAM 2 MG/2 ML VIAL ONE (09:36)
[2022-06-27] MEDS ORDERED: fentaNYL 100 MCG/2 ML VIAL ONE ×2 (09:37→10:45)
[2022-06-27] MEDS ORDERED: LIDOCAINE-PF 2% 10 ML AMP SUBQ ONE (09:38)
[2022-06-27] MEDS ORDERED: PROPOFOL 200 MG/20 ML VIAL IVP ONE (09:38)
[2022-06-27] MEDS ORDERED: ROCURONIUM 50 MG/5 ML VIAL ONE ×2 (09:41→10:41)
[2022-06-27] MEDS ORDERED: BUPIVACAINE 0.25% PF 30 ML VIAL SUBQ ONE ×2 (09:50)
[2022-06-27] MEDS ORDERED: LIDOCAINE MPF 2%-EPI 1:200000 20 ML VIAL SUBQ ONE ×2 (09:50)
--- NOTE | 2022-06-27 10:00 | SURGERY HX AND PHYSICAL(T) ---
Surgical History & Physical - Chief Complaint/HPI Chief Complaint: abdominal pain History of Present Illness: The patient is a 52-year-old male with a 1-1/2-day history of mild generalized abdominal pain that is located to the right lower quadrant since yesterday. He denies any fever he did have some chills. He denies nausea or vomiting. He has had normal bowel movements. He denies any previous episodes of pain, but his states he has chronic mild abdominal pain. The patient states he has been able to void and has some discomfort in his abdomen with voiding but is not limiting. - PMH/PSH/Social Hx Neurological History: None Cardiovascular: High cholesterol Respiratory: None Skin: None Endocrine/Autoimmune: None Gastrointestinal: None Urinary: None Musculoskeletal: None Blood Disorders: None Psychiatric: None General: Colonoscopy, EGD Smoking Status: Never smoker Does the pt drink ETOH?: Yes Frequency: Occasional Does the pt have substance abuse?: No - Home Meds and Allergies Home Medications: Atorvastatin [Lipitor] 10 mg ORAL QPM 06/26/22 Allergies/Adverse Reactions: Allergies Allergy/AdvReac Type Severity Reaction Status Date / Time No Known Drug Allergies Allergy Verified 06/26/22 21:42 - Review of Systems Constitutional: No: Fatigue, Fever, Chills, Malaise, Weakness, Poor appetite, Diaphoresis, Night sweats, Weight gain, Weight loss, Other HEENT: No: Headaches, Visual changes, Eye pain, Dysphasia, Sinus congestion, Post nasal drip, Sore throat, Other Skin: No: Cyanosis, Jaundice, Mottled, Pallor, Diaphoresis, Dryness, Bruising, Puritis, Rash, Other Cardiac: No: AFIB, CAD, CHF, HTN, DE, Syncope, Hyperlipidemia, Mitral valve stenosis, Aortic stenosis, Valve insufficiency, Pulmonary hypertension Respiratory: No: Shortness of breath, Cough, Sputum, Other Gastrointestinal: Abdominal pain (See HPI) Gentinourinary: No: Dysuria, Frequency, Burning, Pain, Urgency, Incontinence, Hematuria, Retention, Flank pain, Other Neurological: No: Dizziness, Headache, Numbness, Syncope, Tingling, Weakness, Urinary changes, Bowel changes, Other Musculoskeletal: No: Muscle pain, Back pain, Joint pain or stiffness, Other - Vital Signs Heart Rate: 81 Blood Pressure: 127/78 Temperature: 98.6 F Respiratory Rate: 16 O2 Saturation: 96 Weight (kg): 89 kg Height: 1.8 m - Physical Exam General Appearance: positive: No acute distress, Alert Eyes Bilatera: positive: Normal inspection ENT: positive: ENT inspection nml Neck: positive: Nml inspection, Trachea midline Respiratory: positive: No respiratory distress Cardiovascular: positive: Regular rate & rhythm Peripheral Pulses: positive: 2+ Abdomen: positive: Tenderness (Right lower quadrant), Rebound Back: positive: Nml inspection Skin: positive: Color nml Extremities: positive: Non-tender, Full ROM Neurologic/Psychiatric: positive: Oriented x3 - Patient Review Patient Review: Problems were reviewed with the patient during this visit. Medications were reviewed with the patient during this visit. Allergies were reviewed this patient during this visit. Pertinent Tests Reviewed: All pertitent test for this patient were reviewed. - Assessment & Plan Assessment and Plan: Acute appendicitis Plan for laparoscopic appendectomy today. The patient understands the risks, benefits, and alternatives of the procedure and consents to proceed. All questions were answered for the patient and his spouse.
[2022-06-27] MEDS ORDERED: DEXAMETHASONE 4 MG/ML VIAL ONE (10:19)
[2022-06-27] MEDS ORDERED: ONDANSETRON 4 MG/2 ML VIAL ONE (10:19)
[2022-06-27] MEDS ORDERED: ePHEDrine 50 MG/ML VIAL IVP ONE (10:31)
[2022-06-27] MEDS ORDERED: SUGAMMADEX 200 MG/2 ML VIAL IVP ONE (10:49)
--- NOTE | 2022-06-27 10:49 | PHARMACY PROGRESS NOTE ---
- Best Possible Medication History Admit Date and Time: 06/27/22 0043 Processed by: Pharmacy Medication History completed: Yes Patient Interview: Completed Secondary Source(s): Prescription bottles (had rx bottles on phone) As the person ultimately responsible for medication therapy, providers are able to order a medication from an existing home medication list in [facility] via the "Reconcile Routine" prior to Confirmation of that medication by technical support assistant. Such practice is discouraged except when the physician, in their clinical judgment, deems that a medical need exists for a medication without regard to previous use.
[2022-06-27] MEDS ORDERED: PHENOL THROAT SPRAY 177 ML MM PRN (11:13)
[2022-06-27] MEDS ORDERED: LACTATED RINGERS 1,000 ML IV ONE (11:21)
--- NOTE | 2022-06-27 11:28 | OPERATIVE REPORT ---
Operative Report - General Admit Date: 06/27/22 Procedure Date: 06/27/22 Planned Procedure: Laparoscopic appendectomy Pre-Op Diagnosis: acute appendicitis Procedure Performed: laparoscopic appendectomy Post Op Diagnosis: acute on chronic appendicitis - Procedure Note Primary Surgeon: kathryn Anesthesia Provider: rocio Anesthesia Technique: General ET tube Pathology: appendix Estimated Blood Loss (mL): 10 Complications: no immediated post operative complications - Other Other Information/Narrative: The patient was consented. He was taken to the operating room. He was placed i n the supine position. General anesthesia was induced. The patient's abdomen was prepped and draped in a standard sterile fashion. A timeout was performed. The abdomen was entered using a 5 mm Optiview trocar to the left of the umbilicus. Once it was done it was insufflated to 15 mmHg. At this time the next trocars were placed under direct visualization. A 12 mm trocar in the left lateral abdomen, and a 5 mm trocar in the suprapubic area. Local anesthesia was injected into all port sites prior to trocar placement. The patient was placed in the headdown and right side up position. The right lower quadrant was visualized. The appendix was walled off from the abdomen and stuck to the lateral abdominal wall. I was able to open this up bluntly using a suction supervisor public health nursing. The base of the appendix was visualized, it was elevated and a blunt window was created. The appendix was divided from the cecum using a 45 mm blue load stapler. Further blunt dissection was used to elevate the mesoappendix away from the surrounding tissue and this was divided using 2 fires of a 45 mm white load stapler. At this time the appendix was placed in an Endo Catch bag and removed from the 12 mm port site. This was then closed using an 0 Vicryl suture in an Endo Close device. At this time the right lower quadrant was visualized hemostasis was apparent and the staple lines appeared intact. The area was copiously suction and irrigated, and I cleaned off the majority of the inflammatory rind from this area. At this time all ports removed under direct visualization and the abdomen was allowed to desufflate. All incisions were closed using interrupted 4-0 Vicryl subcuticular suture and a sterile dressing with Dermabond was applied. All needle and sponge counts were reconciled at the end of the case. The patient was awakened and taken to the PACU in stable condition.
--- NOTE | 2022-06-27 11:37 | Discharge Plan ---
Discharge Plan Problem Reviewed?: Yes Disposition: Home, Self Care Condition: Good Prescriptions: HYDROcod/ACETAM 5/325 [[place] 5/325] 1 tab PO Q4HR PRN #25 tab PRN Reason: Pain 5 to 7 Diet: Soft Activity Restrictions: no lifting for 3 weeks Shower Restrictions: No Driving Restrictions: Yes (after off narcotics) Assessment: acute appendicitis No Smoking: If you smoke, Please STOP! Call for help. Follow-up with: Jose Morales MD [Primary Care Provider] - Richmond North MD [Provider Admit Priv/Credential] -
[2022-06-27] MEDS ORDERED: HYDROmorphone 0.5 MG/0.5 ML SYRINGE ONE (11:41)
--- NOTE | 2022-06-27 11:42 | DISCHARGE SUMMARY ---
"Discharge Summary Admit Date: 06/27/22 Discharge Date: 06/27/22 Discharging Provider: kathryn Code Status: Attempt Resuscitation Condition at Discharge: Good Discharge Disposition: 01 Home, Self Care - DIAGNOSES Admission Diagnoses: acute appendicitis Discharge Diagnoses with Status of Each Condition: stable - HPI History of Present Illness: Patient was admitted for acute appendicitis he underwent a laparoscopic appendectomy. - CONSULTS | PROCEDURES Procedures: Laparoscopic appendectomy - HOSPITAL COURSE Hospital Course: The patient was admitted for acute appendicitis. He went underwent a laparoscopic appendectomy. He had a routine postoperative course. - ALLERGIES Allergies/Adverse Reactions: Allergies Allergy/AdvReac Type Severity Reaction Status Date / Time No Known Drug Allergies Allergy Verified 06/26/22 21:42 - MEDICATIONS Home Medications: Ambulatory Orders Medication Instructions Recorded Confirmed Atorvastatin [Lipitor] 10 mg ORAL QPM 06/26/22 06/26/22 Cholecalciferol [Vitamin D3] 1 tab PO DAILY 06/27/22 06/27/22 Famotidine [Pepcid] 1 tab PO BID 06/27/22 06/27/22 HYDROcod/ACETAM 5/325 [[place] 5/325] 1 tab PO Q4HR PRN #25 tab 06/27/22 Hyoscyamine Sulfate 1 tab PO Q6HR PRN 06/27/22 06/27/22 Ibuprofen [Motrin] 600 mg PO Q6HR PRN tab 06/27/22 Multivitamin [Theragran] 1 tab PO DAILY 06/27/22 06/27/22 Vitamin B Complex 1 tab PO DAILY 06/27/22 06/27/22 - PHYSICAL EXAM AT DISCHARGE General Appearance: positive: No acute distress Eyes Bilateral: positive: Normal inspection Respiratory: positive: No respiratory distress Cardiovascular: positive: Regular rate & rhythm Abdomen: positive: No distention, Tenderness - LABS Result Diagrams: 06/26/22 21:51 06/26/22 21:51 - DIAGNOSTIC IMAGING Diagnostic Imaging Results: Final report reviewed, Read contemporaneously"
--- NOTE | 2022-06-27 11:47 | ANESTHESIA POST OP EVALUATION ---
Anesthesia Post Eval - Post Anesthesia Eval Vitals: Last Vital Signs Temp 36.9 C 06/27/22 11:42 Pulse 81 06/27/22 11:42 Resp 12 06/27/22 11:42 BP 116/66 06/27/22 11:42 Pulse Ox 97 06/27/22 11:42 O2 Flow Rate CV Function Including HR & BP: Stable Pain Control: Satisfactory Nausea & Vomiting: Negative Mental Status: Baseline Respiratory Status: Airway Patent Hydration Status: Satisfactory Anesthesia Complications: None
[2022-06-27] MEDS ORDERED: SODIUM CHLORIDE FLUSH 0.9% 10 ML SYRINGE IVP SCH (17:00)
--- NOTE | 2022-06-27 18:04 | Discharge Plan ---
Discharge Plan Problem Reviewed?: Yes Disposition: Home, Self Care Condition: Good Prescriptions: HYDROcod/ACETAM 5/325 [[place] 5/325] 1 tab PO Q4HR PRN #25 tab PRN Reason: Pain 5 to 7 HYDROcodone/ACET 7.5/325 [[place] 7.5/325] 1 each PO Q6H #20 tablet Diet: Regular Activity Restrictions: no lifting for 3 weeks Shower Restrictions: No Driving Restrictions: Yes (after off narcotics) Instruction Topics: Appendectomy, Appendectomy After, Appendx Surg, Appendectomy Laparoscopic Dc Assessment: acute appendicitis No Smoking: If you smoke, Please STOP! Call for help. Follow-up with: Richmond North MD [Provider Admit Priv/Credential] - Jose Morales MD [Primary Care Provider] -
--- NOTE | 2022-06-27 18:11 | Discharge Plan ---
Discharge Plan Problem Reviewed?: Yes Disposition: Home, Self Care Condition: Good Prescriptions: HYDROcod/ACETAM 5/325 [[place] 5/325] 1 tab PO Q4HR PRN #25 tab PRN Reason: Pain 5 to 7 HYDROcodone/ACET 7.5/325 [[place] 7.5/325] 1 each PO Q6H #20 tablet Activity Restrictions: no lifting for 3 weeks Shower Restrictions: No Driving Restrictions: Yes (after off narcotics) Instruction Topics: Appendectomy, Appendectomy After, Appendx Surg, Appendectomy Laparoscopic Dc Assessment: acute appendicitis No Smoking: If you smoke, Please STOP! Call for help. Follow-up with: Richmond North MD [Provider Admit Priv/Credential] - Jose Morales MD [Primary Care Provider] -
[2022-06-27 18:37] VITALS: BP 113/60
[2022-06-27] MEDS ORDERED: ATORVASTATIN 10 MG TABLET PO SCH (21:00)
[2022-06-28] MEDS ORDERED: ENOXAPARIN 40 MG/0.4 ML SYRINGE SUBQ SCH (09:00)
== END 2022-06-27 18:46 | disposition home or self-care (01) ==
LOC: ED 21:33 → INTOOBSV 06-27 00:43 → MS2 06-27 00:43
PROVIDERS: ADMIT Specialist; ATTEND Specialist
PROC: 0DTJ4ZZ Resection of Appendix, Percutaneous Endoscopic Approach (ICD-10-PCS; principal; 2022-06-27 10:00)
DX: K35.32 Acute appendicitis with perforation, localized peritonitis, and gangrene, without abscess (principal); E78.00 Pure hypercholesterolemia, unspecified
CPT/HCPCS: 36415; 44970; 74177; 80053; 81003; 83690; 85025; 96365; 96366; 96375; 99284; 99285; A9270; G0378; J1170; J7120; Q9967; 81001; 87086